=== PATIENT | male | born 1955 | race Caucasian/White ===

== ENCOUNTER 2016-07-01 10:13 | Emergency (ER) | payer MEDICARE ==
[~2016-07-01] VITALS: Ht 172.7 cm; Wt 83.0 kg
[~2016-07-01 10:13] MED LIST: BACT800T5 PO; CEPH500 PO; DOXY100T PO; MOBI15TA PO; PROP40TA3 PO; XANA0.5T PO
[2016-07-01 10:21] VITALS: BP 161/75; PULSE 86; RESP 18; TEMP 99.8; O2SAT 95
[2016-07-01] MEDS ORDERED: BUSP5TAB PO (10:27)
[2016-07-01] MEDS ORDERED: PROP40TA3 PO (10:29)
[2016-07-01] MEDS ORDERED: FERR325T PO (10:29)
[2016-07-01] MEDS ORDERED: ALPR0.5T3 PO (10:29)
[2016-07-01] MEDS ORDERED: VITA1000 PO (10:29)
[2016-07-01] MEDS ORDERED: SODIUM CHLORIDE 0.9% FLUSH 5 ML FLUSH IVF PRN (10:45)
[2016-07-01] MEDS ORDERED: SODIUM CHLOR 0.9% 1000 ML INJ 1,000 ML IV ONE (10:45)
--- NOTE | 2016-07-01 10:48 | PD ---
HPI Chief Complaint: General Weakness Time Seen by Provider: 10:30 Travel History International Travel<30 days: No Contact w/Intl Traveler<30days: No Traveled to known affect area: No History of Present Illness HPI Patient is a 60-year-old male who presents to emergency room with complaints of generalized weakness for the past 3 weeks. Patient reports that he has history of "really bad arthritis", reports that he uses a walker to walk at baseline. Patient reports that this morning, he woke up to use the restroom, reports that he was too weak to get up from the toilet. Patient reports that he had to call EMS for help. Patient reports that for the past 3 weeks, he has been feeling weak to his knees, reports that he has been feeling intermittent shortness of breath. Patient reports that shortness of breath is worse in the morning, reports that improves throughout the day. Patient denies any chest pain at this time, denies cough or congestion. Patient reports that he is" on and off smoker." Patient denies any abdominal pain, nausea or vomiting, reports that he thinks that he may have led in his stools as his noticed increased dark and tarry stools for the past week. Patient does admit to taking iron supplements. Patient with no nausea or vomiting or diarrhea, reports that he has been eating and drinking like his normal self, reports that "I just don't feel good. ". Patient with no recent travels or trips. Patient with no sick contacts. PFSH Past Medical History Anxiety: Yes Heart Rhythm Problems: Yes (PALPITATIONS) Cardiovascular Problems: Yes (MITRAL VALVE PROLAPSE ) Diabetes: No Patient Takes Glucophage: No Immunizations Current: Yes Influenza Vaccination: No ?: Not Social History Alcohol Use: Yes (most days) Tobacco Use: Yes Substance Use: Yes (ALCOHOL DAILY) Allergies-Medications (Allergen,Severity, Reaction): Coded Allergies: No Known Allergies (Verified , 05/26/15) Reported Meds & Prescriptions Reported Meds & Active Scripts Active Reported Vitamin D-1000 (Cholecalciferol) 1,000 Unit Tab 1,000 Units PO DAILY Alprazolam 0.5 Mg Tab 0.5 Mg PO Q6H PRN Ferrous Sulfate 325 Mg Tab 325 Mg PO DAILY Propranolol (Propranolol HCl) 40 Mg Tab 40 Mg PO Q8HR Buspirone (Buspirone HCl) 5 Mg Tab 5 Mg PO BID Review of Systems General / Constitutional: No: Fever Eyes: No: Visual changes HENT: No: Headaches Cardiovascular: No: Chest Pain or Discomfort Respiratory: No: Shortness of Breath Gastrointestinal: Positive: Other (melena), No: Nausea, Vomiting, Diarrhea, Abdominal Pain Genitourinary: No: Dysuria Musculoskeletal: No: Pain Skin: No Rash Neurologic: Positive: Weakness Psychiatric: No: Depression Endocrine: No: Polydipsia Hematologic/Lymphatic: No: Easy Bruising Physical Exam Narrative GENERAL: No acute distress, nontoxic SKIN: Warm and dry. HEAD: Atraumatic. Normocephalic. EYES: No injection or drainage. ENT: No nasal bleeding or discharge. Mucous membranes pink and moist. NECK: Trachea midline. No JVD. CARDIOVASCULAR: Regular rate and rhythm. No murmur appreciated. RESPIRATORY: No accessory muscle use. Clear to auscultation. Breath sounds equal bilaterally. GASTROINTESTINAL: Abdomen soft, non-tender, nondistended. Patient with heme- negative rectal exam, control positive, stool is light brown. Patient does have a nonthrombosed external hemorrhoid with no bleeding. Exam performed with NIKOLAI Awad at bedside MUSCULOSKELETAL: No obvious deformities. No clubbing. No cyanosis. No edema. NEUROLOGICAL: Awake and alert. No obvious cranial nerve deficits. Motor grossly within normal limits. Normal speech. PSYCHIATRIC: Appropriate mood and affect; insight and judgment normal. Data Data Last Documented VS Vital Signs Date Time Temp Pulse Resp B/P Pulse Ox O2 Delivery O2 Flow Rate FiO2 07/01/16 13:27 93 18 147/68 95 Room Air 07/01/16 10:21 99.8 Orders Complete Blood Count With Diff (07/01/16 10:37) Comprehensive Metabolic Panel (07/01/16 10:37) B-Type Natriuretic Peptide (07/01/16 10:37) D-Dimer (07/01/16 10:37) Act Partial Throm Time (Ptt) (07/01/16 10:37) Prothrombin Time / Inr (Pt) (07/01/16 10:37) Magnesium (Mg) (07/01/16 10:37) Ckmb (Isoenzyme) Profile (07/01/16 10:37) Troponin I (07/01/16 10:37) Arterial Blood Gas (Abg) (07/01/16 10:37) Urinalysis - C+S If Indicated (07/01/16 10:37) Influenzae A/B Antigen (07/01/16 10:37) Iv Access Insert/Monitor (07/01/16 10:37) Ecg Monitoring (07/01/16 10:37) Oximetry (07/01/16 10:37) Chest, Single Ap (07/01/16 10:37) Sodium Chloride 0.9% Flush (Ns Flush) (07/01/16 10:45) Sodium Chlor 0.9% 1000 Ml Inj (Ns 1000 M (07/01/16 10:45) Ct Pulmonary Angiogram (07/01/16 12:31) Electrocardiogram (07/01/16 10:22) Iohexol 350 Inj (Omnipaque 350 Inj) (07/01/16 13:33) Labs Laboratory Tests Test 07/01/16 07/01/16 11:10 11:50 White Blood Count 7.6 TH/MM3 Red Blood Count 4.21 MIL/MM3 Hemoglobin 12.9 GM/DL Hematocrit 36.8 % Mean Corpuscular Volume 87.5 FL Mean Corpuscular Hemoglobin 30.7 PG Mean Corpuscular Hemoglobin 35.1 % Concent Red Cell Distribution Width 15.2 % Platelet Count 133 TH/MM3 Mean Platelet Volume 7.2 FL Neutrophils (%) (Auto) 71.3 % Lymphocytes (%) (Auto) 11.7 % Monocytes (%) (Auto) 15.6 % Eosinophils (%) (Auto) 0.9 % Basophils (%) (Auto) 0.5 % Neutrophils # (Auto) 5.4 TH/MM3 Lymphocytes # (Auto) 0.9 TH/MM3 Monocytes # (Auto) 1.2 TH/MM3 Eosinophils # (Auto) 0.1 TH/MM3 Basophils # (Auto) 0.0 TH/MM3 CBC Comment DIFF FINAL Differential Comment Prothrombin Time 10.2 SEC Prothromb Time International 0.9 RATIO Ratio Activated Partial 27.8 SEC Thromboplast Time D-Dimer Quantitative (PE/DVT) 2.19 MG/L FEU Sodium Level 139 MEQ/L Potassium Level 3.3 MEQ/L Chloride Level 105 MEQ/L Carbon Dioxide Level 25.4 MEQ/L Anion Gap 9 MEQ/L Blood Urea Nitrogen 6 MG/DL Creatinine 0.51 MG/DL Estimat Glomerular Filtration 167 ML/MIN Rate Random Glucose 136 MG/DL Calcium Level 8.1 MG/DL Magnesium Level 1.7 MG/DL Total Bilirubin 0.8 MG/DL Aspartate Amino Transf 21 U/L (AST/SGOT) Alanine Aminotransferase 16 U/L (ALT/SGPT) Alkaline Phosphatase 52 U/L Total Creatine Kinase 60 U/L Troponin I LESS THAN 0.02 NG/ML B-Type Natriuretic Peptide 56 PG/ML Total Protein 6.8 GM/DL Albumin 3.0 GM/DL Urine Color YELLOW Urine Turbidity CLEAR Urine pH 6.0 Urine Specific [place] 1.022 Urine Protein 100 mg/dL Urine Glucose (UA) NEG mg/dL Urine Ketones 40 mg/dL Urine Occult Blood NEG Urine Nitrite NEG Urine Bilirubin NEG Urine Urobilinogen 2.0 MG/DL Urine Leukocyte Esterase NEG Urine RBC 1 /hpf Urine WBC 3 /hpf Urine Hyaline Casts 2 /lpf Urine Mucus MANY /lpf Microscopic Urinalysis Comment CULT NOT INDICATED MDM Medical Decision Making Medical Screen Exam Complete: Yes Emergency Medical Condition: Yes Interpretation(s) EKG at 1022: Normal sinus rhythm at 86 bpm, QT/QTC 374/417, incomplete right bundle branch block Vital Signs Date Time Temp Pulse Resp B/P Pulse Ox O2 Delivery O2 Flow Rate FiO2 07/01/16 10:24 87 24 95 Room Air 07/01/16 10:21 99.8 86 18 161/75 95 Differential Diagnosis GI bleed, electrolyte abnormality, ACS, arrhythmia, PE, CHF exacerbation, influenza, pneumothorax, anemia Narrative Course Patient is a 60-year-old male who presents to emergency room from home with complaints of generalized weakness and possible GI bleed. Patient reports that he has been feeling increasingly weak over the past 3 weeks , reports no fevers or chills at home, denies any sick contacts. Patient reports that he does use a walker to ambulate, that he was unable to get up after having a dark tarry bowel movement this morning. Patient had to call EMS to help him up from the toilet. Reports that he came to the emergency room for evaluation as he has been progressively feeling weak over the past 3 weeks. Patient with no specific complaint at this time, no chest pain or abdominal pain or nausea or vomiting. Patient reports that he has been feeling increasingly short of breath and had dark tarry stools. Rectal exam performed with RN at bedside, patient does not have heme positive stools, stool is light brown in color. I do not believe the patient has a GI bleed at this time, patient with no abdominal pain, plan to check labs. With patient's overall generalized weakness, labs ordered, EKG ordered, will perform x-ray of chest. Patient was placed on monitor and storage bin tender upon arrival to the emergency room. D-dimer ordered as well as ABG ordered as patient reports increased SOB over the past 3 weeks. CBC & BMP Diagram 07/01/16 11:[address] Angiography 07/01/16 1231 Signed Impressions: Service Date/Time: Friday, July 01, 2016 12:55 - CONCLUSION: No evidence of pulmonary embolus. Mild right basilar atelectasis. Hepatic steatosis. Henrik Arriola MD Chest X-Ray 07/01/16 1037 Signed Impressions: Service Date/Time: Friday, July 01, 2016 10:48 - CONCLUSION: 1. No acute cardiopulmonary findings. Willian Morris MD All labs and all studies reviewed with patient in detail. Patient with no acute findings at this time, all incidental findings were reviewed patient in detail. Patient reports that he is feeling better at this time. A copy of patient's CAT scan report was given to him. Discussed signs and symptoms of when to return to the emergency room. Diagnosis Primary Impression: Generalized weakness Additional Impressions: Anemia Hepatic steatosis Hypokalemia Patient Instructions: General Instructions Additional Instructions: Please follow-up with your primary care doctor as soon as possible Return to the emergency room as needed Return to the emergency room if symptoms worsen or progress Disposition: 01 DISCHARGE HOME Condition: Stable Suzanne Headley DO Jul 01, 2016 10:48
--- NOTE | 2016-07-01 11:11 | RADRPT ---
EXAM DATE/TIME: 07/01/2016 10:48 [facility] COMPARISON: ANKLE LEFT COMPLETE ([id number]), March 13, 2015, 10:40. INDICATIONS : Short of breath MEDICAL HISTORY : None. SURGICAL HISTORY : None. ENCOUNTER: Initial ACUITY: 1 day PAIN SCORE: 0/10 LOCATION: Bilateral chest FINDINGS: A single view of the chest demonstrates the lungs to be symmetrically aerated without evidence of mas s, infiltrate or effusion. The cardiomediastinal contours are unremarkable. Osseous structures demo nstrate mild degenerative changes but are otherwise intact. CONCLUSION: 1. No acute cardiopulmonary findings. Willian Morris MD on July 01, 2016 at 11:09 Board Certified Radiologist. This report was verified electronically.
[2016-07-01 11:13] VITALS: RESP 18; O2SAT 98
[2016-07-01 11:26] LABS: AUTOMATED NEUTROPHIL # 5.4 TH/MM3 (1.8-7.7); BASOPHIL % 0.5 % (0.0-2.0); EOSINOPHIL # 0.1 TH/MM3 (0-0.4); EOSINOPHIL % 0.9 % (0.0-4.0); HEMATOCRIT 36.8 % (39.0-51.0); HEMO FLAGS DIFF FINAL; LYMPH % 11.7 % (9.0-44.0); LYMPHOCYTE # 0.9 TH/MM3 (1.0-4.8); MEAN CELL VOLUME 87.5 FL (80.0-100.0); MEAN CORPUSCULAR HEMOGLOBIN 30.7 PG (27.0-34.0); MEAN CORPUSCULAR HGB CONC 35.1 % (32.0-36.0); MONO % 15.6 % (0.0-8.0); NEUT % 71.3 % (16.0-70.0); PLATELET COUNT 133 TH/MM3 (150-450); RED BLOOD COUNT 4.21 MIL/MM3 (4.50-5.90); RED CELL DISTRIBUTION WIDTH 15.2 % (11.6-17.2); WHITE BLOOD COUNT 7.6 TH/MM3 (4.0-11.0)
[2016-07-01 11:43] LABS: ALT (GPT) 16 U/L (12-78); ANION GAP 9 MEQ/L (5-15); APTT (PATIENT) 27.8 SEC (24.3-30.1); AST (GOT) 21 U/L (15-37); BICARBONATE 25.4 MEQ/L (21.0-32.0); BLOOD UREA NITROGEN 6 MG/DL (7-18); CHLORIDE 105 MEQ/L (98-107); GLOMERULAR FILTRATION RATE 167 ML/MIN (>89); INTERNATIONAL NORMALIZED RATIO 0.9 RATIO; MAGNESIUM 1.7 MG/DL (1.5-2.5); POTASSIUM 3.3 MEQ/L (3.5-5.1); PROTHROMBIN TIME - PATIENT 10.2 SEC (9.8-11.6); SODIUM (NA) 139 MEQ/L (136-145)
[2016-07-01 11:49] LABS: ALKALINE PHOSPHATASE 52 U/L (45-117); CREATINE KINASE 60 U/L (39-308); TOTAL BILIRUBIN ADULT 0.8 MG/DL (0.2-1.0)
[2016-07-01 12:22] LABS: BLOOD, URINE NEG (NEG); GLUCOSE,URINE NEG (NEG); HYALINE CAST, URINE 2 /lpf (RARE); KETONE, URINE 40 mg/dL (NEG); MUCUS URINE MANY /lpf (OCC); NITRITE,URINE NEG (NEG); URINE COLOR YELLOW (YELLW/STRAW)
[2016-07-01 12:23] LABS: COMMENT (UR) CULT NOT INDICATED; CULTURE IF INDICATED CULT NOT INDICATED
[2016-07-01 13:27] VITALS: BP 147/68; PULSE 93; RESP 18; O2SAT 95
[2016-07-01] MEDS ORDERED: IOHEXOL 350 MG/ML 10 ML VIAL (for RAD DIAG) IV ONE (13:33)
--- NOTE | 2016-07-01 14:03 | RADRPT ---
EXAM DATE/TIME: 07/01/2016 12:55 [facility] COMPARISON: No previous studies available for comparison. INDICATIONS : Short of breath. IV CONTRAST: 60 cc Omnipaque 350 (iohexol) IV RADIATION DOSE: 28.33 CTDIvol (mGy) MEDICAL HISTORY : Cardiovascular disease. SURGICAL HISTORY : None. ENCOUNTER: Initial ACUITY: 1 day PAIN SCALE: 5/10 LOCATION: chest TECHNIQUE: Volumetric scanning of the chest was performed using a pulmonary embolism protocol MIP images were re constructed. Using automated exposure control and adjustment of the mA and/or kV according to patien t size, radiation dose was kept as low as reasonably achievable to obtain optimal diagnostic quality images. FINDINGS: PULMONARY ARTERIES: No filling defects are seen in the pulmonary arteries through the segmental level. LUNGS: Mild right lower lobe atelectasis. PLEURAE: There is no pleural thickening or pleural effusion. MEDIASTINUM: Coronary artery calcification noted. Aortic diameter are within normal limits. No enlarged lymph node s. MUSCULOSKELETAL: Within normal limits for patient age. MISCELLANEOUS: Diffuse hepatic hypodensity indicating hepatic steatosis. CONCLUSION: No evidence of pulmonary embolus. Mild right basilar atelectasis. Hepatic steatosis. Henrik Arriola MD on July 01, 2016 at 13:57 Board Certified Radiologist. This report was verified electronically.
[2016-07-01] MEDS ORDERED: POTASSIUM CL 40 MEQ/30 ML LIQ UDC PO ONE (14:15)
[2016-07-01 14:29] VITALS: BP 153/78; TEMP 98.8
[2016-07-01 15:47] LABS: BLOOD GAS BASE EXCESS -0.4 mmol/L (-2-2); BLOOD GAS CARBOXYHEMOGLOBIN 2.5 % (0-4); BLOOD GAS HCO3 23 mmol/L (22-26); BLOOD GAS O2 HGB SATURATION 92 % (90-100); BLOOD GAS OXYGEN CONTENT 18.2 Vol % (12.0-20.0); BLOOD GAS PCO2 33 mmHg (38-42); BLOOD GAS PO2 70 mmHG (61-120); BLOOD GAS TOTAL HGB 14.2 G/DL (12.0-16.0); CRITICAL VALUE NO; TEMP CORR TO 98.6
[2016-07-01 15:48] LABS: DRAW SITE RT RADIAL; FIO2 21 %; NUMBER OF ARTERIAL PUNCTURES 1; STAT YES; ULNAR PULSE RR
--- NOTE | 2016-07-02 14:41 | EKG ---
Date Performed: 07/01/2016 Time Performed: 10:22:19 PTAGE: 60 years EKG: Sinus rhythm INCOMPLETE RIGHT BUNDLE BRANCH BLOCK BORDERLINE ECG PREVIOUS TRACING : 01/04/2011 18.01 DOCTOR: Kike Cordon Interpretating Date/Time 07/02/2016 14:35:04
== END 2016-07-01 14:45 | disposition home or self-care (01) ==
LOC: NEPA 10:13
DX: R53.1 Weakness (principal); D64.9 Anemia, unspecified; K76.0 Fatty (change of) liver, not elsewhere classified; E87.6 Hypokalemia; R06.02 Shortness of breath; R00.2 Palpitations; I34.1 Nonrheumatic mitral (valve) prolapse; Z72.0 Tobacco use
CPT/HCPCS: 36600; 71010; 71275; 80053; 81001; 82550; 82805; 83735; 83880; 84484; 85025; 85379; 85610; 85730; 93005; 99285; J7030; Q9967

== ENCOUNTER 2016-11-21 02:21 | Emergency (ER) | payer MEDICARE ==
[~2016-11-21] VITALS: Ht 172.7 cm; Wt 82.0 kg
[~2016-11-21 02:21] MED LIST changes: +ALPR0.5T3 PO; -BACT800T5 PO; +BUSP5TAB PO; -CEPH500 PO; -DOXY100T PO; +FERR325T PO; -MOBI15TA PO; +VITA1000 PO; -XANA0.5T PO
[2016-11-21] MEDS ORDERED: THIAMINE HCL 100 MG TAB PO ONE (02:45)
[2016-11-21] MEDS ORDERED: SODIUM CHLOR 0.9% 1000 ML INJ 1,000 ML IV ONE (02:45)
--- NOTE | 2016-11-21 02:51 | PD ---
HPI Chief Complaint: alcohol intoxication Time Seen by Provider: 02:40 Travel History International Travel<30 days: No Contact w/Intl Traveler<30days: No History of Present Illness HPI This is a 60-year-old male who presents to the emergency department with a funny feeling in the back of his head feeling like it shaking. He told his mom that this was happening and he told her he thought he was having a seizure or stroke so she called 911. The patient reports he drank a bottle of vodka this evening which is more than he normally drinks. He had no loss of consciousness or convulsions. Currently he has no symptoms except for a "funny feeling" at the back of his head. He had no injury. [facility] Past Medical History Anxiety: Yes Heart Rhythm Problems: Yes (PALPITATIONS) Cardiovascular Problems: Yes (MITRAL VALVE PROLAPSE ) Diabetes: No Immunizations Current: Yes Social History Alcohol Use: Yes (most days) Tobacco Use: Yes Substance Use: Yes (ALCOHOL DAILY) Allergies-Medications (Allergen,Severity, Reaction): Coded Allergies: No Known Allergies (Verified , 11/21/16) Reported Meds & Prescriptions Reported Meds & Active Scripts Active Reported Propranolol (Propranolol HCl) 40 Mg Tab 40 Mg PO Q8HR Review of Systems Except as stated in HPI: all other systems reviewed are Neg Physical Exam Narrative GENERAL: Clinically intoxicated SKIN: Focused skin assessment warm and dry. HEAD: Atraumatic. Normocephalic. EYES: Pupils equal and round. No injection or drainage. ENT: Moist mucous membranes NECK: Trachea midline. CARDIOVASCULAR: Regular rate and rhythm. No murmur appreciated. RESPIRATORY: Clear to auscultation. Breath sounds equal bilaterally. GASTROINTESTINAL: Abdomen soft, non-tender, nondistended. MUSCULOSKELETAL: No obvious deformities. NEUROLOGICAL: Awake and alert. No obvious cranial nerve deficits. Moving all extremities. PSYCHIATRIC: Intermittently tearful Data Data Last Documented VS Vital Signs Date Time Temp Pulse Resp B/P Pulse Ox O2 Delivery O2 Flow Rate FiO2 11/21/16 03:05 67 20 94 11/21/16 02:58 98.7 149/82 Orders Complete Blood Count With Diff (11/21/16 02:40) Comprehensive Metabolic Panel (11/21/16 02:40) Alcohol (Ethanol) (11/21/16 02:40) Sodium Chlor 0.9% 1000 Ml Inj (Ns 1000 M (11/21/16 02:45) Thiamine (Vit B1) (Vitamin B1) (11/21/16 02:45) Labs Laboratory Tests Test 11/21/16 02:50 White Blood Count 7.9 TH/MM3 Red Blood Count 5.94 MIL/MM3 Hemoglobin 16.7 GM/DL Hematocrit 50.3 % Mean Corpuscular Volume 84.8 FL Mean Corpuscular Hemoglobin 28.1 PG Mean Corpuscular Hemoglobin 33.2 % Concent Red Cell Distribution Width 17.5 % Platelet Count 215 TH/MM3 Mean Platelet Volume 6.5 FL Neutrophils (%) (Auto) 58.7 % Lymphocytes (%) (Auto) 35.3 % Monocytes (%) (Auto) 4.7 % Eosinophils (%) (Auto) 0.6 % Basophils (%) (Auto) 0.7 % Neutrophils # (Auto) 4.6 TH/MM3 Lymphocytes # (Auto) 2.8 TH/MM3 Monocytes # (Auto) 0.4 TH/MM3 Eosinophils # (Auto) 0.0 TH/MM3 Basophils # (Auto) 0.1 TH/MM3 CBC Comment DIFF FINAL Differential Comment Sodium Level 141 MEQ/L Potassium Level 3.9 MEQ/L Chloride Level 106 MEQ/L Carbon Dioxide Level 25.4 MEQ/L Anion Gap 10 MEQ/L Blood Urea Nitrogen 10 MG/DL Creatinine 0.73 MG/DL Estimat Glomerular Filtration 110 ML/MIN Rate Random Glucose 119 MG/DL Calcium Level 8.5 MG/DL Total Bilirubin 0.5 MG/DL Aspartate Amino Transf 28 U/L (AST/SGOT) Alanine Aminotransferase 18 U/L (ALT/SGPT) Alkaline Phosphatase 78 U/L Total Protein 8.1 GM/DL Albumin 3.9 GM/DL Ethyl Alcohol Level 280 MG/DL [facility] Medical Decision Making Medical Screen Exam Complete: Yes Emergency Medical Condition: Yes Interpretation(s) afebrile, no tachycardia, hypertension, 94% on room air No leukocytosis Electrolytes are reassuring Alcohol is 280 Differential Diagnosis Alcohol intoxication, stroke, seizure, electrolyte abnormality Narrative Course This is a 60-year-old male who presents to the emergency department reporting some abnormal sensations in the back of his head. His mother became concerned and called 911. Patient reportedly drank a bottle of vodka this evening which is not normal for him. He appears clinically intoxicated. He has a normal neurologic exam. I don't think the patient is having an acute neurologic event may think his symptoms are related to alcohol intoxication. His mother feels reassured after blood work and feels comfortable taking him home. I think this is reasonable. Patient will be discharged. Diagnosis Primary Impression: Alcohol intoxication Qualified Code: F10.920 - Alcohol intoxication, uncomplicated Patient Instructions: General Instructions Additional Instructions: Follow up with Dannie Jenkins in regards to psychiatric or substance related issues at: [address] [place] [address] Med/Other Pt SpecificInfo: No Change to Meds Disposition: 01 DISCHARGE HOME Condition: Stable Estrella Martinez MD Nov 21, 2016 02:51
[2016-11-21 02:58] VITALS: BP 149/82; PULSE 67; RESP 20; TEMP 98.7; O2SAT 94
[2016-11-21 02:59] LABS: AUTOMATED NEUTROPHIL # 4.6 TH/MM3 (1.8-7.7); BASOPHIL # 0.1 TH/MM3 (0-0.2); BASOPHIL % 0.7 % (0.0-2.0); EOSINOPHIL % 0.6 % (0.0-4.0); HEMATOCRIT 50.3 % (39.0-51.0); LYMPH % 35.3 % (9.0-44.0); LYMPHOCYTE # 2.8 TH/MM3 (1.0-4.8); MEAN CELL VOLUME 84.8 FL (80.0-100.0); MEAN CORPUSCULAR HEMOGLOBIN 28.1 PG (27.0-34.0); MEAN CORPUSCULAR HGB CONC 33.2 % (32.0-36.0); MONO % 4.7 % (0.0-8.0); NEUT % 58.7 % (16.0-70.0); PLATELET COUNT 215 TH/MM3 (150-450); RED BLOOD COUNT 5.94 MIL/MM3 (4.50-5.90); RED CELL DISTRIBUTION WIDTH 17.5 % (11.6-17.2); WHITE BLOOD COUNT 7.9 TH/MM3 (4.0-11.0)
[2016-11-21 03:07] LABS: CHLORIDE 106 MEQ/L (98-107); SODIUM (NA) 141 MEQ/L (136-145)
[2016-11-21 03:11] LABS: ANION GAP 10 MEQ/L (5-15); BICARBONATE 25.4 MEQ/L (21.0-32.0); BLOOD UREA NITROGEN 10 MG/DL (7-18)
[2016-11-21 03:14] LABS: ALT (GPT) 18 U/L (12-78); AST (GOT) 28 U/L (15-37); GLOMERULAR FILTRATION RATE 110 ML/MIN (>89)
[2016-11-21 03:16] LABS: POTASSIUM 3.9 MEQ/L (3.5-5.1); TOTAL BILIRUBIN ADULT 0.5 MG/DL (0.2-1.0)
[2016-11-21 03:17] LABS: ALKALINE PHOSPHATASE 78 U/L (45-117); HEMO FLAGS DIFF FINAL
[2016-11-21 03:30] VITALS: BP 144/72; PULSE 72; RESP 20; O2SAT 98
[2016-11-21] MEDS ORDERED: PROP40TA3 PO (03:49)
[2016-11-21 04:32] VITALS: BP 137/93
== END 2016-11-21 04:36 | disposition home or self-care (01) ==
LOC: PHED 02:21
DX: F10.120 Alcohol abuse with intoxication, uncomplicated (principal); Y90.8 Blood alcohol level of 240 mg/100 ml or more; Z79.899 Other long term (current) drug therapy
CPT/HCPCS: 80053; 80307; 85025; 99284; J7030

== ENCOUNTER 2017-02-06 03:02 | Observation (INO) | payer MEDICARE ==
[2017-02-06] VITALS (15 sets, daily range): BP systolic 97–137; BP diastolic 50–80; PULSE 74–102; RESP 16–33; TEMP 97.4–99.3; O2SAT 94–98
[~2017-02-06] VITALS: Ht 175.3 cm; Wt 82.6 kg
[~2017-02-06 03:02] MED LIST changes: -ALPR0.5T3 PO; -BUSP5TAB PO; -FERR325T PO; -VITA1000 PO
[2017-02-06] MEDS ORDERED: SODIUM CHLOR 0.9% 1000 ML INJ 1,000 ML IV ONE ×2 (03:11→05:30)
[2017-02-06] MEDS ORDERED: SODIUM CHLORIDE 0.9% FLUSH 10 ML FLUSH IVF PRN ×3 (03:15→06:00)
[2017-02-06 03:33] LABS: AUTOMATED NEUTROPHIL # 6.4 TH/MM3 (1.8-7.7); BASOPHIL # 0.1 TH/MM3 (0-0.2); BASOPHIL % 0.7 % (0.0-2.0); EOSINOPHIL # 0.2 TH/MM3 (0-0.4); EOSINOPHIL % 2.4 % (0.0-4.0); HEMATOCRIT 47.4 % (39.0-51.0); HEMO FLAGS DIFF FINAL; LYMPHOCYTE # 1.8 TH/MM3 (1.0-4.8); MEAN CORPUSCULAR HEMOGLOBIN 30.9 PG (27.0-34.0); MEAN CORPUSCULAR HGB CONC 34.3 % (32.0-36.0); NEUT % 71.9 % (16.0-70.0); PLATELET COUNT 272 TH/MM3 (150-450); RED BLOOD COUNT 5.27 MIL/MM3 (4.50-5.90); RED CELL DISTRIBUTION WIDTH 14.4 % (11.6-17.2)
[2017-02-06] MEDS ORDERED: XANA2TAB2 PO (03:35)
[2017-02-06 03:39] LABS: CHLORIDE 105 MEQ/L (98-107); POTASSIUM 3.7 MEQ/L (3.5-5.1); SODIUM (NA) 141 MEQ/L (136-145)
[2017-02-06 03:41] LABS: INTERNATIONAL NORMALIZED RATIO 0.9 RATIO; PROTHROMBIN TIME - PATIENT 10.2 SEC (9.8-11.6)
[2017-02-06 03:42] LABS: ANION GAP 12 MEQ/L (5-15); BICARBONATE 24.3 MEQ/L (21.0-32.0); BLOOD UREA NITROGEN 6 MG/DL (7-18); MAGNESIUM 2.2 MG/DL (1.5-2.5)
[2017-02-06 03:45] LABS: ALT (GPT) 35 U/L (12-78); AST (GOT) 30 U/L (15-37); GLOMERULAR FILTRATION RATE 143 ML/MIN (>89)
[2017-02-06 03:47] LABS: TOTAL BILIRUBIN ADULT 0.7 MG/DL (0.2-1.0)
[2017-02-06 03:48] LABS: ALKALINE PHOSPHATASE 55 U/L (45-117)
[2017-02-06 04:04] LABS: ALCOHOL 170 MG/DL (0-5)
--- NOTE | 2017-02-06 04:04 | RADRPT ---
EXAM DATE/TIME: 02/06/2017 03:47 [facility] COMPARISON: CHEST SINGLE AP, July 01, 2016, 10:48. INDICATIONS : Short of breath after syncopal episode. MEDICAL HISTORY : Cardiovascular disease. SURGICAL HISTORY : None. ENCOUNTER: Initial ACUITY: 1 day PAIN SCORE: 0/10 LOCATION: Bilateral chest FINDINGS: A single view of the chest demonstrates subsegmental basilar opacity most characteristic of atelectas is. No significant effusion. No pneumothorax. CONCLUSION: 1. Basilar density most characteristic of atelectasis. No significant effusion. No pneumothorax. Jace Cardenas MD on February 06, 2017 at 4:01 Board Certified Radiologist. This report was verified electronically.
--- NOTE | 2017-02-06 04:06 | RADRPT ---
EXAM DATE/TIME: 02/06/2017 03:50 [facility] COMPARISON: CT BRAIN W/O CONTRAST, January 06, 2015, 4:19. INDICATIONS : Altered mental status. RADIATION DOSE: 65.85 CTDIvol (mGy) MEDICAL HISTORY : Cardiovascular disease. SURGICAL HISTORY : None. ENCOUNTER: Initial ACUITY: 1 day PAIN SCALE: Non-responsive LOCATION: cranial TECHNIQUE: Multiple contiguous axial images were obtained of the head. Using automated exposure control and adj ustment of the mA and/or kV according to patient size, radiation dose was kept as low as reasonably a chievable to obtain optimal diagnostic quality images. DICOM format image data is available electro nically for review and comparison. FINDINGS: CEREBRUM: The ventricles are normal for age. No evidence of midline shift, mass lesion, hemorrhage or acute in farction. No extra-axial fluid collections are seen. POSTERIOR FOSSA: The cerebellum and brainstem are intact. The 4th ventricle is midline. The cerebellopontine angle i s unremarkable. EXTRACRANIAL: The visualized portion of the orbits is intact. SKULL: The calvaria is intact. No evidence of skull fracture. CONCLUSION: Normal examination for a patient of this age. No significant change has occurred. Jace Cardenas MD on February 06, 2017 at 4:03 Board Certified Radiologist. This report was verified electronically.
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
[2017-02-06 05:09] LABS: ACETAMINOPHEN LESS THAN 2.0 MCG/ML (10.0-30.0)
[2017-02-06 05:11] LABS: BLOOD, URINE NEG (NEG); GLUCOSE,URINE NEG (NEG); KETONE, URINE NEG (NEG); NITRITE,URINE NEG (NEG)
[2017-02-06] MEDS ORDERED: THIAMINE INJ 100 MG in SODIUM CHLORIDE 0.9% INJ 100 ML IV ONE (05:30)
[2017-02-06 05:32] LABS: MUCUS URINE OCC /lpf (OCC); SQUAMOUS EPITHELIAL CELL URINE 0-5 /hpf (0-5); URINE COLOR YELLOW (YELLW/STRAW); WBC, URINE 0-2 /hpf (0-5)
[2017-02-06 05:33] LABS: COMMENT (UR) CULT NOT INDICATED; CULTURE IF INDICATED CULT NOT INDICATED
[2017-02-06] MEDS ORDERED: SODIUM CHLORIDE 0.9% FLUSH 10 ML FLUSH IV FLUSH PRN (05:45)
[2017-02-06] MEDS ORDERED: ALPRAZolam 0.5 MG TAB PO PRN (05:45)
[2017-02-06] MEDS ORDERED: NALOXONE HCL 0.4 MG/ML AMP IV PUSH PRN (05:45)
[2017-02-06] MEDS: SODIUM CHLORIDE 0.9% FLUSH 10 ML FLUSH IV FLUSH SCH ×2 (08:44→21:43)
[2017-02-06] MEDS ORDERED: SODIUM CHLORIDE 0.9% FLUSH 10 ML FLUSH IV FLUSH SCH (09:00)
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
--- NOTE | 2017-02-06 14:46 | EKG ---
Date Performed: 02/06/2017 Time Performed: 03:22:34 PTAGE: 61 years EKG: Sinus rhythm MARKED LEFT AXIS DEVIATION ABNORMAL ECG PREVIOUS TRACING : 07/01/2016 10.22 Compared to prior tracing no significant change DOCTOR: Rose Marie Sethi Interpretating Date/Time 02/06/2017 14:46:06
[2017-02-06] MEDS: PROPRANOLOL HCL 40 MG TAB PO SCH ×2 (15:33→21:42)
[2017-02-06] MEDS ORDERED: ENOXAPARIN SODIUM 40 MG/0.4 ML SYRINGE SQ SCH (18:00)
[2017-02-07] VITALS: BP 119/63; PULSE 73; PULSE 78; RESP 24; TEMP 98; O2SAT 96
[2017-02-07 04:00] VITALS: BP 123/58; PULSE 82; RESP 17; TEMP 99
[2017-02-07 05:00] VITALS: BP 114/48; PULSE 82; RESP 16; O2SAT 96
[2017-02-07] MEDS: PROPRANOLOL HCL 40 MG TAB PO SCH ×2 (06:03→14:16)
[2017-02-07 08:00] VITALS: BP 124/58; PULSE 80; RESP 16; TEMP 98.7; O2SAT 93
--- NOTE | 2017-02-07 08:49 | HHI.PR ---
Subjective Remarks In bed, feels much better today. Mood is better. No fever or chills. Breathing well, no sob. VsdS. Stable medically for DC Objective Vitals Vital Signs Date Time Temp Pulse Resp B/P (MAP) Pulse Ox O2 Delivery O2 Flow Rate FiO2 02/07/17 05:00 82 16 114/48 (70) 96 02/07/17 04:00 82 02/07/17 04:00 99.0 82 17 123/58 (79) 02/07/17 00:00 98.0 78 24 119/63 (81) 96 02/07/17 00:00 73 02/06/17 21:39 82 18 111/59 (76) 02/06/17 20:00 99.3 86 22 125/59 (81) 96 02/06/17 20:00 87 02/06/17 19:37 96 21 02/06/17 16:00 97.7 98 33 136/74 (94) 96 02/06/17 16:00 98 02/06/17 12:00 99.1 102 30 137/76 (96) 98 02/06/17 10:00 89 02/06/17 09:23 02/06/17 09:22 99.0 84 24 136/80 (98) 97 I/O 02/06/17 02/06/17 02/06/17 02/07/17 02/07/17 02/07/17 07:00 15:00 23:00 07:00 15:00 23:00 Intake Total 2100 ml 320 ml 560 ml 200 ml Output Total 700 ml 700 ml Balance 2100 ml -380 ml 560 ml -500 ml Intake Oral 320 ml 560 ml 200 ml IV Total 2100 ml Output Urine Total 700 ml 700 ml # Voids 1 3 2 # Bowel Movements 1 1 0 Result Diagram: 02/06/1731402/06/17314 Imaging Last Impressions Head CT 02/06/17310 Signed Impressions: Service Date/Time: Monday, February 06, 2017 03:50 - CONCLUSION: Normal examination for a patient of this age. No significant change has occurred. Jace Cardenas MD Chest X-Ray 02/06/17310 Signed Impressions: Service Date/Time: Monday, February 06, 2017 03:47 - CONCLUSION: 1. Basilar density most characteristic of atelectasis. No significant effusion. No pneumothorax. Jace Cardenas MD Objective Remarks GENERAL: This is a well-nourished, well-developed patient, in no apparent distress. CARDIOVASCULAR: Tachycardic. Regular rate and rhythm without murmurs, gallops, or rubs. RESPIRATORY: Clear to auscultation. Breath sounds equal bilaterally. No wheezes , rales, or rhonchi. GASTROINTESTINAL: Abdomen soft, non-tender, nondistended. No hepato-splenomegaly , or palpable masses. No guarding. 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 Extremities without clubbing, cyanosis, or edema. No joint tenderness, effusion, or edema noted. No calf tenderness. Negative Homans sign bilaterally. NEUROLOGICAL: Awake and alert. Cranial nerves II through XII intact. Motor and sensory grossly within normal limits. Five out of 5 muscle strength in all muscle groups. Normal speech. PSYCHIATRIC: Depressed mood, anxious. A/P Assessment and Plan 61 yo male with Generalized weakness Benzodiazepine abuse (xanax) Alcohol abuse Suicidal ideation. Brewer acted H/o mitral valve prolapse resume propranolol Admitted to ICU for close obs for 24 hrs . 

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
[2017-02-07 12:00] VITALS: PULSE 84
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
[2017-02-07 12:31] VITALS: BP 120/66; PULSE 84; RESP 18; TEMP 99; O2SAT 97
== END 2017-02-07 15:21 ==
LOC: PHED 03:02 → PHEDA 05:43 → PHICU 09:25
PROVIDERS: ADMIT Hospitalist; ATTEND Hospitalist
DX: T42.4X1A Poisoning by benzodiazepines, accidental (unintentional), initial encounter (principal); F10.10 Alcohol abuse, uncomplicated; R53.1 Weakness; F41.9 Anxiety disorder, unspecified; F13.10 Sedative, hypnotic or anxiolytic abuse, uncomplicated; I34.1 Nonrheumatic mitral (valve) prolapse; R00.2 Palpitations; M48.00 Spinal stenosis, site unspecified; M41.9 Scoliosis, unspecified; R94.31 Abnormal electrocardiogram [ECG] [EKG]
CPT/HCPCS: 70450; 71010; 80053; 80307; 81001; 83735; 84484; 85025; 85610; 93005; 96361; 96365; 96372; 97162; 99285; G0378; G8987; G8988; J1650; J3411; J7030

== ENCOUNTER 2017-02-07 16:26 | Inpatient (IN) | payer MEDICARE ==
[~2017-02-07 16:26] MED LIST changes: +XANA2TAB2 PO
[2017-02-07 17:03] VITALS: BP 138/60; PULSE 94; RESP 18; TEMP 99.8; O2SAT 98
[2017-02-07] MEDS ORDERED: traZODone HCL 100 MG TAB PO SCH (21:30)
[2017-02-07] MEDS ORDERED: MAGNESIUM HYDROXIDE SUSP 30 ML CUP PO PRN (22:00)
[2017-02-07] MEDS ORDERED: ALUMINUM/MAGNESIUM/SIMETH 30 ML CUP PO PRN (22:00)
[2017-02-07] MEDS ORDERED: ACETAMINOPHEN 325 MG TAB PO PRN (22:00)
[2017-02-07] MEDS: PROPRANOLOL HCL 40 MG TAB PO SCH (22:11)
[2017-02-08] MEDS: PROPRANOLOL HCL 40 MG TAB PO SCH ×3 (06:14→22:00)
[2017-02-08 06:34] VITALS: BP 101/55; PULSE 81; RESP 17; TEMP 98.2; O2SAT 95
[2017-02-08] MEDS: NICOTINE 21 MG/24 HR PATCH T-DERMAL SCH (09:00)
[2017-02-08 17:04] VITALS: BP 135/65; PULSE 75; RESP 18; TEMP 98.6; O2SAT 99
[2017-02-08] MEDS: ESCITALOPRAM OXALATE 10 MG TAB PO SCH (17:54)
--- NOTE | 2017-02-08 18:44 | HHI.HP ---
Provisional Diagnosis Admission Date Feb 07, 2017 at 16:26 [place] I. Adjustment disorder with depressed mood Certification of Person's Competence To Provide Express and Informed Consent I have personally examined Cortes Baker , a person being served at [facility] on, Feb 08, 2017 18:44. Express and informed consent means consent voluntarily given in writing, by a competent person, after sufficient explanation and disclosure of the subject matter involved to enable the person to make a knowing and willful decision without any element of force, fraud, deceit, duress, or other form of constraint or coercion. This person is 18 years of age or older, is not now known to be incompetent to consent to treatment with a guardian advocate, and does not have a health care surrogate or proxy currently making medical treatment decisions. I have found this person to be one of the following: [x] Competent to provide express and informed consent, as defined above, for voluntary admission to this facility and is competent to provide express and informed consent for treatment. He/she has the consistent capacity to make well reasoned, willful, and knowing decisions concerning his or her medical or mental health treatment. The person fully and consistently understands the purpose of the admission for examination/placement and is fully capable of personally exercising all rights assured under [place] [] Incompetent to provide express and informed consent to voluntary admission, and this is incompetent to provide express and informed consent to treatment. The person must be transferred to involuntary status and a petition for a guardian advocate filed with the Circuit Court. [] Refusing to provide express and informed consent to voluntary admission but is competent to provide express and informed consent for treatment. The person must be discharged or transferred to involuntary status. Form shall be completed within 24 hours of a person's arrival at the receiving facility and filed in the clinical record of each person: 1. Admitted on a voluntary basis 2. Permitted to provide express and informed consent to his/her own treatment 3. Allowed to transfer from involuntary to voluntary status 4. Prior to permitting a person to consent to his or her own treatment after having been previously found incompetent to consent to treatment. 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 Patient was seen on the inpatient psychiatry unit, calm and cooperative with interview. Patient states that he is not suicidal and lives for his mother. He reports that he lives with his mother for years now and is her caregiver. He reports that prior to admission he was drinking at home and took four (0.5mg tablets) tablets to get a buzz and fell which he his mother called EMS. He denies any loss of consciousness but due to his spinal stenosis had difficulty getting up. He repots his mood being good, enjoys life with his mother. He reports his sleep as being alright, good appetite, energy and concentration, at times feels a little depressed because of my condition, denies feeling hopeless but at times feels helpless because I cant walk. Currently reports feeing sad because Im here denies SI, HI, AVH or delusions. Family psychiatric history: denies Past psychiatric history: previous psychiatric diagnosis of depression and anxiety, no previous psychiatric admissions, no previous suicide attempts or self injurious behavior. Denies history of abuse. Substance use history: reports ETOH 2-3 times per week(3-4 (16 oz) beers at a time) for the past four years; denies any illegal drug use, previous rehab 10 years ago as an outpatient. 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 Review of Systems Except as stated in HPI: all other systems reviewed are Neg Past Psych History Psychological trauma history denies Violence risk - others (6 mos) low Violence risk - self (6 mos) low Substance Abuse History Drugs/Alcohol past 12 months reports ETOH 2-3 times per week(3-4 (16 oz) beers at a time) for the past four years; denies any illegal drug use, previous rehab 10 years ago as an outpatient. Past Family Social History Coded Allergies: No Known Allergies (Verified , 02/06/17) Reported Medications Propranolol (Propranolol) 40 Mg Tab, 40 MG PO Q8HR, #90 TAB 0 Refills 11/21/16 Discontinued Reported Medications Alprazolam (Xanax) 2 Mg Tab, 2 MG PO Q8H Y for ANXIETY, TAB 0 Refills 02/06/17 Current Medications Medications (Trade) Dose Ordered Sig/Yee Route Start Time Stop Time Status Last Admin (Inderal) 40 mg Q8H PO 02/07/17 22:00 02/08/17 14:28 (Tylenol) 650 mg Q4H PRN PO 02/07/17 22:00 (Milk Of Magnesia Liq) 30 ml DAILY PRN PO 02/07/17 22:00 (Mag-Al Plus Susp Liq) 30 ml Q6H PRN PO 02/07/17 22:00 (Habitrol 21 Mg Patch.24 Hr) 1 patch DAILY T-DERMAL 02/08/17 09:00 Miscellaneous Information 1 HS T-DERMAL 02/08/17 21:00 (Lexapro) 10 mg DAILY PO 02/08/17 14:00 02/08/17 17:54 Family History denies Social History single, lives with mother, 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 Patient's Strengths (min. 2) verbal and communicative Physical Exam Patient found to be in no acute distress, noted to be in wheelchair, no noted gross motor abnormalities, no tremors of EPS, no noted psychomotor agitation of retardation. Vital Signs Vital Signs Date Time Temp Pulse Resp B/P (MAP) Pulse Ox O2 Delivery O2 Flow Rate FiO2 02/08/17 17:04 98.6 75 18 135/65 (88) 99 Mental Status Examination Appearance appears stated age, in hospital [facility], fair hygiene and grooming, calm and cooperative with interview; fair eye contact Speech: Unremarkable Orientation: x3 Memory: Unremarkable Thought Process: Logical, Organized Thought Content: Unremarkable Language fluent and spontaneous Fund of Knowledge average Hallucination Type: None Attention and Concentration: Good Suicidal Ideation: No Previous Suicide Attempts: No Homicidal Ideation: No Previous Homicide Attempts: No Insight: Fair Judgment: WNL Affect: Other (tearful at times) Mood: Sad Assessment & Plan Problem List: (1) Adjustment disorder with depressed mood ICD Codes: F43.21 - Adjustment disorder with depressed mood Assessment & Plan Patient is a 61 y/o man who carries a diagnosis of depression and anxiety who was brought in under [place] after alcohol use and benzodiazepine overdose. Patient denies it being a suicide attempt and only wanted to get buzzed. Will start escitalopram 10mg PO daily. Monitor for medication response and ADRs. Continue to monitor mood and behavior. Discharge planning in progress. Delon Almanzar MD Feb 08, 2017 18:44
[2017-02-08] MEDS: REMOVE OLD NICOTINE PATCH T-DERMAL SCH (21:00)
[2017-02-09] MEDS: PROPRANOLOL HCL 40 MG TAB PO SCH ×3 (05:53→21:33)
[2017-02-09 06:06] VITALS: BP 135/66; PULSE 77; RESP 18; TEMP 98.2; O2SAT 96
[2017-02-09] MEDS: ESCITALOPRAM OXALATE 10 MG TAB PO SCH (09:00)
[2017-02-09] MEDS: NICOTINE 21 MG/24 HR PATCH T-DERMAL SCH (09:00)
--- NOTE | 2017-02-09 15:24 | HHI.PYPN ---
Subjective Remarks Patient was seen and case discussed with nursing. Patient maintains that he did not have a intentional overdose. Psychoeducation was done about benzodiazepines and alcohol. Protective factors include his mother. No auditory visual hallucinations, alert and oriented 4, no tremors, vital signs are within normal limits. No nausea or vomiting. Denies depressed mood. Denies suicidal or homicidal ideation intent or plan Objective Alert: Yes [place]: Person, Place, Date, Situation Mood: Calm Affect: Restricted Memory Intact: Immediate (grossly intact) Hallucinations: Other (denies) Delusions: No Delusion Type: Other (none elicited) Suicidal: Ideation (denies) Homicidal: Ideation (denies) Insight/Judgment Fair Vitals/IOs Vital Signs Date Time Temp Pulse Resp B/P (MAP) Pulse Ox O2 Delivery O2 Flow Rate FiO2 02/09/17 06:06 98.2 77 18 135/66 (89) 96 Assessment & Plan Problem List: (1) Adjustment disorder with depressed mood ICD Codes: F43.21 - Adjustment disorder with depressed mood Assessment & Plan Continue current treatment plan Justification for Cont. Inpt. Patient would decompensate in a less restrictive setting Luís Villalobos DO Feb 09, 2017 15:24
[2017-02-09] MEDS: REMOVE OLD NICOTINE PATCH T-DERMAL SCH (21:00)
[2017-02-09] MEDS: traZODone HCL 50 MG TAB PO PRN (23:13)
[2017-02-10 04:36] VITALS: BP 116/56; PULSE 69; RESP 17; TEMP 98; O2SAT 97
[2017-02-10] MEDS: PROPRANOLOL HCL 40 MG TAB PO SCH ×4 (06:00→20:47)
[2017-02-10] MEDS: NICOTINE 21 MG/24 HR PATCH T-DERMAL SCH (08:41)
[2017-02-10] MEDS: ESCITALOPRAM OXALATE 10 MG TAB PO SCH (08:42)
[2017-02-10 08:49] VITALS: BP 149/68; PULSE 76
--- NOTE | 2017-02-10 11:13 | HHI.PYPN ---
Subjective Remarks Patient was seen and case discussed with nursing. Patient is bright and cheerful during the interview. Affect is anxious. Patient is asking about discharge tomorrow given he has a pain management appointment at 3 PM. Behaving well on the unit, seen social with others, went outside. Continues to state that his overdose was not intentional. Denies suicidal or homicidal ideation intent or plan Objective Alert: Yes [place]: Person, Place, Date, Situation Mood: Calm Affect: Appropriate Memory Intact: Immediate (grossly intact) Hallucinations: Other (denies) Delusions: No Delusion Type: Other (none elicited) Suicidal: Ideation (denies) Homicidal: Ideation (denies) Insight/Judgment Fair Vitals/IOs Vital Signs Date Time Temp Pulse Resp B/P (MAP) Pulse Ox O2 Delivery O2 Flow Rate FiO2 02/10/17 08:49 76 149/68 (95) 02/10/17 04:36 98.0 17 97 Assessment & Plan Problem List: (1) Adjustment disorder with depressed mood ICD Codes: F43.21 - Adjustment disorder with depressed mood Assessment & Plan Continue current treatment plan Justification for Cont. Inpt. Patient will decompensate in a less restrictive setting Luís Villalobos DO Feb 10, 2017 11:13
[2017-02-10 14:05] VITALS: BP 143/67; PULSE 75
[2017-02-10 17:57] VITALS: BP 140/64; PULSE 76; RESP 18; TEMP 97.7; O2SAT 95
[2017-02-10] MEDS: traZODone HCL 50 MG TAB PO PRN (20:47)
[2017-02-10] MEDS: REMOVE OLD NICOTINE PATCH T-DERMAL SCH (20:47)
[2017-02-11 06:39] VITALS: BP 145/62; PULSE 86; RESP 16; TEMP 99.7; O2SAT 94
[2017-02-11] MEDS: PROPRANOLOL HCL 40 MG TAB PO SCH ×2 (06:40→13:42)
[2017-02-11] MEDS: NICOTINE 21 MG/24 HR PATCH T-DERMAL SCH (08:25)
[2017-02-11] MEDS: ESCITALOPRAM OXALATE 10 MG TAB PO SCH (08:25)
--- NOTE | 2017-02-11 13:46 | HHI.DS ---
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 Patient was seen on the inpatient psychiatry unit, calm and cooperative with interview. Patient states that he is not suicidal and lives for his mother. He reports that he lives with his mother for years now and is her caregiver. He reports that prior to admission he was drinking at home and took four (0.5mg tablets) tablets to get a buzz and fell which he his mother called EMS. He denies any loss of consciousness but due to his spinal stenosis had difficulty getting up. He repots his mood being good, enjoys life with his mother. He reports his sleep as being alright, good appetite, energy and concentration, at times feels a little depressed because of my condition, denies feeling hopeless but at times feels helpless because I cant walk. Currently reports feeing sad because Im here denies SI, HI, AVH or delusions. Family psychiatric history: denies Past psychiatric history: previous psychiatric diagnosis of depression and anxiety, no previous psychiatric admissions, no previous suicide attempts or self injurious behavior. Denies history of abuse. Substance use history: reports ETOH 2-3 times per week(3-4 (16 oz) beers at a time) for the past four years; denies any illegal drug use, previous rehab 10 years ago as an outpatient. 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 Tobacco Use In Past 30 Days: No Tobacco Past 30 Days Alcohol Use: 2-4 Times Per Month Hospital Course Patient is seen today with nurse Iza and counselor Vilma. Patient calm cooperative sitting in wheelchair obvious severe arthritic changes noted of both hands. Stating that there was never any suicidal intent with this episode. He was taking the Xanax because he had some anxiety. The acknowledges mixing it with alcohol. I did spend much time counseling and advising him the dangers involved mixing alcohol and benzodiazepines. He did reluctantly acknowledge being an alcoholic. Has had multiple DUIs. And at least one course of rehabilitation outpatient related to his DUIs. He denies other drug use. He denies any prior inpatient psychiatric hospitalization. States he lives with his 90-year-old plus mother. In any event at this time patient does not meet criteria for further inpatient psychiatric hospitalization. Patient will be discharged to himself with no Rx by me and may continue with his PCP and we will also referred to [facility] for mental health follow-up Results Blood Pressure 145 / 62 Vital Signs Date Time Temp Pulse Resp B/P (MAP) Pulse Ox O2 Delivery O2 Flow Rate FiO2 02/11/17 06:39 99.7 86 16 145/62 (89) 94 Blood alcohol level CLXX urine toxicology positive for benzodiazepines Summary of Procedures None done Pending results at discharge: No Medications # of Antipsychotic meds at D/C: 0 Approp Antipsych med options 1 - Minimum of three failed multiple trials of monotherapy. 2 - Documented plan to taper to monotherapy due to previous use of multiple meds OR cross-taper in progress at D/C. 3 - Documentation of augmentation of Clozapine. 4 - Justification other than those listed in allowable values 1-3, document here : Discharge Discharge Date: Feb 11, 2017 Discharge Diagnosis: (1) Alcohol intoxication Diagnosis: Secondary ICD Code: F10.929 - Alcohol use, unspecified with intoxication, unspecified Status: Acute (2) Adjustment disorder with depressed mood Diagnosis: Principal ICD Code: F43.21 - Adjustment disorder with depressed mood Mental Status Exam at Disch Alert oriented short stockily built white male sitting in wheelchair significant obvious arthritic changes both hands. He is otherwise normal active. Mood is euthymic with good range intensity of his affect. Speech rate and rhythm within normal limits though no formal thought disorders. No auditory or visual hallucinations. No delusions. Insight and judgment is poor to fair. Cognition grossly intact Pt Condition on Discharge: Stable Discharge Disposition: Discharge Home Discharge Instructions Diet Instructions: As Tolerated, No Restrictions Activities you can perform: Regular-No Restrictions Scheduled Appointment: [facility] Discharge Time > 30 minutes Discharge/Advance Care Plan Health Problems: (1) Adjustment disorder with depressed mood Goals to promote your health * To prevent worsening of your condition and complications * To maintain your health at the optimal level Directions to meet your goals Take your medications as prescribed Follow your dietary instruction Follow activity as directed Keep your appointments as scheduled Take your immunizations and boosters as scheduled If your symptoms worsen call your PCP, if no PCP go to Urgent Care Center or Emergency Room For 03/12 questions related to your inpatient stay or results of tests pending at discharge, please contact Dr. Kin Palm at Smoking is Dangerous to Your Health. Avoid second hand smoking Kin Palm MD Feb 11, 2017 13:46
== END 2017-02-11 14:35 | disposition home or self-care (01) | DRG 881 ==
LOC: H260 16:26
PROVIDERS: ADMIT Psychiatry & Neurology Psychiatry; ATTEND Psychiatry & Neurology Psychiatry
DX: F43.21 Adjustment disorder with depressed mood (principal); M41.9 Scoliosis, unspecified; F13.10 Sedative, hypnotic or anxiolytic abuse, uncomplicated; F41.9 Anxiety disorder, unspecified; M48.00 Spinal stenosis, site unspecified; T42.4X1A Poisoning by benzodiazepines, accidental (unintentional), initial encounter; F10.129 Alcohol abuse with intoxication, unspecified; Y90.6 Blood alcohol level of 120-199 mg/100 ml; R53.1 Weakness; I34.1 Nonrheumatic mitral (valve) prolapse; R00.2 Palpitations; R94.31 Abnormal electrocardiogram [ECG] [EKG]
CPT/HCPCS: 70450; 71010; 80053; 80307; 81001; 83735; 84484; 85025; 85610; 93005; 96361; 96365; 96372; G0378; G8987-GP; G8988-GP; J1650; J3411; J7030

== ENCOUNTER 2018-01-09 22:12 | Observation (INO) ==
--- NOTE | 2018-01-09 23:57 | ED ---
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 Patient has progression of generalized weakness for the last 6 months but more significantly so in the last 2 months where he has had persistent weakness to his left thigh. Patient has not been medically evaluated since February of last year. Patient has difficulty with ambulation and has called rescue 3 times to his home today for assistance. Rescue brought him to the emergency department for further evaluation. 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 Patient is no longer able to take care of himself and he has no one at home can help him to ambulate. Related Data Home Medications Medication Instructions Recorded Confirmed alprazolam [Xanax] 0.5 mg PO BID 01/09/18 01/09/18 propranolol 50 mg PO TID 01/09/18 01/09/18 trazodone 50 mg PO HS PRN 01/09/18 01/09/18 Previous Rx's Medication Instructions Recorded lisinopril 10 mg PO DAILY #0 tab 01/12/18 prednisone 10 mg PO DAILY #7 tab 01/12/18 Allergies Allergy/AdvReac Type Severity Reaction Status Date / Time No Known Allergies Allergy Unverified 01/09/18 22:50 Review of Systems ROS: all other systems reviewed are negative [facility] Medical History Medical History Anxiety (Acute) Charcot Brianda Tooth muscular atrophy (Acute) Hypertension (Acute) Intermittent depression (Acute) Surgical History Surgical History History of major orthopedic surgery (Acute) Family History Family History Father Emphysema lung Heart attack Social History Social History Substance History: No History of Abuse Second Hand Smoke Exposure: No Smoking Status: Never smoker How Often Do You Have a Drink Containing Alcohol: 4 or more times a week Recent Travel in [facility] within the Last 8 Weeks: No Recent Out of Country Travel within the Last 8 Weeks: No Immunization History Tetanus Immunization: <5 Years Hx Influenza Vaccine This Season: No Exam Narrative Exam Narrative: GENERAL: Alert and oriented 3. In no acute distress SKIN: Focused skin assessment warm/dry. Scaly erythema to facial region particularly HEAD: Atraumatic. Normocephalic. EYES: Pupils equal and round. No scleral icterus. No injection or drainage. ENT: No nasal bleeding or discharge. Mucous membranes pink and moist. NECK: Trachea midline. No JVD. CARDIOVASCULAR: Regular rate and rhythm. No murmur appreciated. RESPIRATORY: No accessory muscle use. Clear to auscultation. Breath sounds equal bilaterally. GASTROINTESTINAL: Abdomen soft, non-tender, nondistended. Hepatic and splenic margins not palpable. MUSCULOSKELETAL: No obvious deformities. No clubbing. No cyanosis. No edema. Significant disability to lower extremity with multiple surgeries. NEUROLOGICAL: Awake and alert. No obvious cranial nerve deficits. Normal speech. Localized weakness to lateral thigh and quadriceps on the left. PSYCHIATRIC: Appropriate mood and affect; insight and judgment normal. Course Reevaluation(s) Reevaluation #1: Results of CT show spondylosis and degenerative changes and also herniated disc with potential pressure on L4 on the left. Given the left leg weakness has been progressive over the last 6 months and exacerbated in the last 2-3 months; the patient has probable radiculopathy causing the muscle weakness on the left leg that has made it impossible to move effectively. Time: 02:16 Initial Documented Vital Signs Temperature 98.6 F 01/09/18 22:25 Pulse Rate 102 H 01/09/18 22:25 Respiratory Rate 15 01/09/18 22:25 Blood Pressure 142/73 H 01/09/18 22:25 Pulse Oximetry 96 01/09/18 22:25 Last Documented Vital Signs Temperature 98.7 F 01/12/18 12:20 Pulse Rate 48 L 01/12/18 12:20 Respiratory Rate 16 01/12/18 12:20 Blood Pressure 116/67 01/12/18 12:20 Pulse Oximetry 96 01/12/18 12:20 Critical Care Time Critical Care Time: No Medical Decision Making MDM Narrative Medical decision making narrative: Patient presents with history of progressive weakness of left lower extremity and back pain that has made it impossible to ambulate that has been progressive over the last 2-[address] with degenerative changes and encroachment of the L4 area associated with the bulging disc is probably responsible for the neuropathy and the muscle weakness in the lateral aspect of the thigh. Medical Screen Exam Complete: Yes Emergency Medical Condition: Yes Lab Data Result diagrams: 01/11/18 06:10 01/11/18 06:10 Lab Results 01/10/18 01/10/18 01/10/18 Range/Units 01:49 01:49 03:03 CBC w Diff Auto diff final WBC 6.9 (4.0-11.0) th/mm3 RBC 5.06 (4.50-5.90) mil/mm3 Hgb 16.5 (13.0-17.0) gm/dL Hct 48.3 (39.0-51.0) % MCV 95.6 (80.0-100.0) fL MCH 32.7 (27.0-34.0) pg MCHC 34.2 (32.0-36.0) % RDW 12.4 (11.6-17.2) % Plt Count 182 (150-450) th/mm3 MPV 6.7 L (7.0-11.0) fL Neut % (Auto) 63.2 (16.0-70.0) % Lymph % (Auto) 15.9 (9.0-44.0) % Leake % (Auto) 17.9 H (0.0-8.0) % Eos % (Auto) 2.1 (0.0-4.0) % Baso % (Auto) 0.9 (0.0-2.0) % Neut # (Auto) 4.4 (1.8-7.7) th/mm3 Lymph # (Auto) 1.1 (1.0-4.8) th/mm3 Leake # (Auto) 1.2 H (0.0-0.9) th/mm3 Eos # (Auto) 0.1 (0.0-0.4) th/mm3 Baso # (Auto) 0.1 (0.0-0.2) th/mm3 WBC Differential . Differential Comment . Sodium 136 (136-145) meq/L Potassium 4.3 (3.5-5.1) meq/L Chloride 99 (98-107) meq/L Carbon Dioxide 25.9 (21.0-32.0) meq/L Anion Gap 11 (5-15) meq/L BUN 5 L (7-18) mg/dL Creatinine 0.61 (0.60-1.30) mg/dL Estimated GFR Greater than 89 (>89) mL/min Random Glucose 80 (74-106) mg/dL Calcium 8.8 (8.5-10.1) mg/dL Total Bilirubin 1.4 H (0.2-1.0) mg/dL Direct Bilirubin (0.0-0.2) mg/dL Indirect Bilirubin (0.0-0.8) mg/dL AST 54 H (15-37) U/L ALT 36 (12-78) U/L Alkaline Phosphatase 69 (45-117) U/L Total Creatine Kinase 90 (39-308) U/L Troponin I Less than 0.02 L (0.02-0.05) ng/mL Total Protein 7.5 (6.4-8.2) g/dL Albumin 3.6 (3.4-5.0) g/dL Urine Color (Yellw/Straw) Urine Clarity (Clear) Urine pH (5.0-8.5) Ur Specific [place] (1.002-1.035) Urine Protein (Neg-Trace) mg/dL Urine Glucose (UA) (Negative) mg/dL Urine Ketones (Negative) mg/dL Urine Occult Blood (Negative) Urine Nitrate (Negative) Urine Bilirubin (Negative) Urine Urobilinogen (Less than 2) mg/dL Ur Leukocyte Esterase (Negative) Urine RBC (0-3) /hpf Urine WBC (0-5) /hpf Urine Mucus (Occasional) /lpf Micro UA Comment Ur Microscopic Review Urine Culture Comments 01/10/18 01/11/18 01/11/18 Range/Units 06:00 06:10 06:10 CBC w Diff WBC 5.4 (4.0-11.0) th/mm3 RBC 4.62 (4.50-5.90) mil/mm3 Hgb 15.1 (13.0-17.0) gm/dL Hct 44.3 (39.0-51.0) % MCV 95.9 (80.0-100.0) fL MCH 32.8 (27.0-34.0) pg MCHC 34.2 (32.0-36.0) % RDW 13.2 (11.6-17.2) % Plt Count 155 (150-450) th/mm3 MPV 7.1 (7.0-11.0) fL Neut % (Auto) 73.3 H (16.0-70.0) % Lymph % (Auto) 12.8 (9.0-44.0) % [place]ake % (Auto) 13.5 H (0.0-8.0) % Eos % (Auto) 0.0 (0.0-4.0) % Baso % (Auto) 0.4 (0.0-2.0) % Neut # (Auto) 4.0 (1.8-7.7) th/mm3 Lymph # (Auto) 0.7 L (1.0-4.8) th/mm3 Leake # (Auto) 0.7 (0.0-0.9) th/mm3 Eos # (Auto) 0.0 (0.0-0.4) th/mm3 Baso # (Auto) 0.0 (0.0-0.2) th/mm3 WBC Differential . Differential Comment Auto diff final Sodium 138 (136-145) meq/L Potassium 3.8 (3.5-5.1) meq/L Chloride 101 (98-107) meq/L Carbon Dioxide 24.3 (21.0-32.0) meq/L Anion Gap 13 (5-15) meq/L BUN 11 (7-18) mg/dL Creatinine 0.53 L (0.60-1.30) mg/dL Estimated GFR Greater than 89 (>89) mL/min Random Glucose 123 H (74-106) mg/dL Calcium 8.3 L (8.5-10.1) mg/dL Total Bilirubin (0.2-1.0) mg/dL Direct Bilirubin (0.0-0.2) mg/dL Indirect Bilirubin (0.0-0.8) mg/dL AST (15-37) U/L ALT (12-78) U/L Alkaline Phosphatase (45-117) U/L Total Creatine Kinase (39-308) U/L Troponin I (0.02-0.05) ng/mL Total Protein (6.4-8.2) g/dL Albumin (3.4-5.0) g/dL Urine Color Dark-yellow H (Yellw/Straw) Urine Clarity Hazy H (Clear) Urine pH 5.0 (5.0-8.5) Ur Specific [place] 1.015 (1.002-1.035) Urine Protein Negative (Neg-Trace) mg/dL Urine Glucose (UA) Negative (Negative) mg/dL Urine Ketones 20 (Negative) mg/dL Urine Occult Blood Negative (Negative) Urine Nitrate Negative (Negative) Urine Bilirubin Negative (Negative) Urine Urobilinogen 4 or greater (Less than 2) mg/dL Ur Leukocyte Esterase Negative (Negative) Urine RBC Less than 1 (0-3) /hpf Urine WBC Less than 1 (0-5) /hpf Urine Mucus Moderate H (Occasional) /lpf Micro UA Comment Culture not ind Ur Microscopic Review Not Reportable Urine Culture Comments Culture not ind 01/11/18 Range/Units 06:10 CBC w Diff WBC (4.0-11.0) th/mm3 RBC (4.50-5.90) mil/mm3 Hgb (13.0-17.0) gm/dL Hct (39.0-51.0) % MCV (80.0-100.0) fL MCH (27.0-34.0) pg MCHC (32.0-36.0) % RDW (11.6-17.2) % Plt Count (150-450) th/mm3 MPV (7.0-11.0) fL Neut % (Auto) (16.0-70.0) % Lymph % (Auto) (9.0-44.0) % Leake % (Auto) (0.0-8.0) % Eos % (Auto) (0.0-4.0) % Baso % (Auto) (0.0-2.0) % Neut # (Auto) (1.8-7.7) th/mm3 Lymph # (Auto) (1.0-4.8) th/mm3 Leake # (Auto) (0.0-0.9) th/mm3 Eos # (Auto) (0.0-0.4) th/mm3 Baso # (Auto) (0.0-0.2) th/mm3 WBC Differential Differential Comment Sodium (136-145) meq/L Potassium (3.5-5.1) meq/L Chloride (98-107) meq/L Carbon Dioxide (21.0-32.0) meq/L Anion Gap (5-15) meq/L BUN (7-18) mg/dL Creatinine (0.60-1.30) mg/dL Estimated GFR (>89) mL/min Random Glucose (74-106) mg/dL Calcium (8.5-10.1) mg/dL Total Bilirubin 0.8 (0.2-1.0) mg/dL Direct Bilirubin 0.2 (0.0-0.2) mg/dL Indirect Bilirubin 0.6 (0.0-0.8) mg/dL AST 27 (15-37) U/L ALT 24 (12-78) U/L Alkaline Phosphatase 63 (45-117) U/L Total Creatine Kinase (39-308) U/L Troponin I (0.02-0.05) ng/mL Total Protein 6.8 D (6.4-8.2) g/dL Albumin 3.3 L (3.4-5.0) g/dL Urine Color (Yellw/Straw) Urine Clarity (Clear) Urine pH (5.0-8.5) Ur Specific [place] (1.002-1.035) Urine Protein (Neg-Trace) mg/dL Urine Glucose (UA) (Negative) mg/dL Urine Ketones (Negative) mg/dL Urine Occult Blood (Negative) Urine Nitrate (Negative) Urine Bilirubin (Negative) Urine Urobilinogen (Less than 2) mg/dL Ur Leukocyte Esterase (Negative) Urine RBC (0-3) /hpf Urine WBC (0-5) /hpf Urine Mucus (Occasional) /lpf Micro UA Comment Ur Microscopic Review Urine Culture Comments Imaging Data Radiologist's impression: Head CT 01/10/18 00:09 CONCLUSION: 1. No acute intracranial abnormality. . Lumbar Spine CT 01/10/18 00:09 CONCLUSION: 1. No fracture or dislocation. 2. Scoliotic curvature. 3. Diffuse degenerative changes as detailed above. Special note is made of a left posterior lateral disc bulge that impinges the left L4 nerve root within the neural foramen with a right posterior lateral disc bulge at L5-S1 impinging the right L5 nerve root. Each level detailed in the above discussion. Lumbar Spine MRI 01/11/18 00:00 CONCLUSION: 1. 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 2. Neural foraminal compromise left L3-4, bilateral L4-5. Thoracic Spine MRI 01/11/18 00:00 CONCLUSION: Scoliosis with degenerative changes and slight effacement of the anterior CSF space T10-11 without any significant interval sac stenosis or cord compromise. Discharge Plan Discharge Disposition Patient Disposition: 30 Still Patient Discharge Condition Condition: Stable Discharge Order Discharge Orders: Discharge Order (Routine); Ordered 01/12/18 Ordered By: Linda Wren Physicians Team ED Provider: Henrik Kearns Attending Provider: Luis Worley Other Providers: Zeferino Hoffmann ; [facility],Agency Status ED Status: Left Department Discharge Information Discharge Date/Time: 01/10/18 04:59
--- NOTE | 2018-01-10 01:54 | CT ---
EXAM DATE: 01/10/2018 1:31 AM EDT AGE/SEX: 62 years / Male INDICATIONS: Weakness. Radiculopathy. CLINICAL DATA: This is the patient's initial encounter. Patient reports that signs and symptoms have been present for 1 day and indicates a pain score of 6/10. MEDICAL/SURGICAL HISTORY: . Anxiety. Hypertension. . Unspecified orthopedic surgery. RADIATION DOSE: 40.18 CTDI (mGy) COMPARISON: No prior exams available for comparison. TECHNIQUE: Contiguous axial images were acquired with a multirow detector CT scanner without contras t. Multiplanar reconstructions in the sagittal and coronal plane were also performed. Using automate d exposure control and adjustment of the mA and/or kV according to patient size, radiation dose was k ept as low as reasonably achievable to obtain optimal diagnostic quality images. DICOM format image data is available electronically for review and comparison. FINDINGS: Vertebrae: Normal vertebral body height. Diffuse anterior osteophyte production. Alignment: There is a scoliotic curvature with concavity towards the patient's left centered at L3.. T12-L1: The thecal sac has a normal diameter. No evidence of disc bulge or protrusion. The neural foramina are patent bilaterally. L1-L2: There is a mild broad-based disc bulge. Moderate bony hypertrophy of the facet joints. Centra l canal remains patent as do the neural foramen. L2-L3: There is a moderate broad-based disc bulge. Moderate ligamentum flavum hypertrophy of the fac et joints. Some lipomatous change involving the posterior portion of the central canal. This combinat ion generates some narrowing of the central canal. The neural foramina are patent bilaterally. L3-L4: There is a moderate broad-based disc osteophyte complex. This in combination with significant ligamentum flavum hypertrophy and bony hypertrophy of the facets generates central canal stenosis as well as narrowing of the lateral recesses bilaterally. Bilateral neural foraminal narrowing more pro nounced on the left with suspected impingement of the left L3 nerve root. No overt impingement involv ing the right side. L4-L5: Partial left-sided hemilaminectomy. A significant broad-based disc bulge with left posterior lateral component totally effaces the left neural foramen. It also generates significant narrowing of the right neural foramen. Pronounced bony hypertrophy of the facet joints. Some narrowing of the guillermo tral canal. L5-S1: A mild broad-based disc bulge with right posterior lateral component causes narrowing of the right neural foramen and suspected impingement of the right L5 nerve root. Left neural foramen shows narrowing without overt impingement. Moderate bony hypertrophy of the facet joints. Some lipomatous c hange involving the posterior portion of the central canal. This is mild. Central canal remains paten t. CONCLUSION: 1. No fracture or dislocation. 2. Scoliotic curvature. 3. Diffuse degenerative changes as detailed above. Special note is made of a left posterior lateral disc bulge that impinges the left L4 nerve root within the neural foramen with a right posterior late ral disc bulge at L5-S1 impinging the right L5 nerve root. Each level detailed in the above discussio n. Electronically signed by: Sawyer Jarvis MD 01/10/2018 1:53 AM EDT
--- NOTE | 2018-01-10 01:55 | CT ---
EXAM DATE: 01/10/2018 1:23 AM EDT AGE/SEX: 62 years / Male INDICATIONS: Weakness. Radiculopathy. CLINICAL DATA: This is the patient's initial encounter. Patient reports that signs and symptoms have been present for 1 day and indicates a pain score of 5/10. MEDICAL/SURGICAL HISTORY: Hypertension. Anxiety. . Unspecified orthopedic surgery. RADIATION DOSE: 62.98 CTDI (mGy) COMPARISON: [facility], CT BRAIN W/O CONTRAST, 02/06/2017. . TECHNIQUE: CT of the head without contrast. Using automated exposure control and adjustment of the mA and/or kV according to patient size, radiation dose was kept as low as reasonably achievable to ob tain optimal diagnostic quality images. DICOM format image data is available electronically for revi ew and comparison. FINDINGS: Cerebrum: The ventricles are normal for age. No evidence of midline shift, mass lesion, hemorrhage or acute infarction. No extraaxial fluid collections are seen. Posterior Fossa: The cerebellum and brainstem are intact. The 4th ventricle is midline. The cerebe llopontine angle is unremarkable. Extracranial: The visualized portion of the orbits is intact. Skull: The calvaria is intact. No evidence of skull fracture. CONCLUSION: 1. No acute intracranial abnormality. . Electronically signed by: Sawyer Jarvis MD 01/10/2018 1:54 AM EDT
[2018-01-10 02:07] LABS: Baso # (Auto) 0.1 th/mm3 (0.0-0.2); Baso % (Auto) 0.9 % (0.0-2.0); Eos # (Auto) 0.1 th/mm3 (0.0-0.4); Eos % (Auto) 2.1 % (0.0-4.0); Hematocrit 48.3 % (39.0-51.0); Hemoglobin 16.5 gm/dL (13.0-17.0); Lymph # (Auto) 1.1 th/mm3 (1.0-4.8); Lymph % (Auto) 15.9 % (9.0-44.0); Mean Corpuscular HGB Conc 34.2 % (32.0-36.0); Mean Corpuscular Hemoglobin 32.7 pg (27.0-34.0); Mean Corpuscular Volume 95.6 fL (80.0-100.0); Mean Platelet Volume 6.7 fL (7.0-11.0); Mono # (Auto) 1.2 th/mm3 (0.0-0.9); Mono % (Auto) 17.9 % (0.0-8.0); Neut # (Auto) 4.4 th/mm3 (1.8-7.7); Neut % (Auto) 63.2 % (16.0-70.0); Platelet Count 182 th/mm3 (150-450); Red Blood Count 5.06 mil/mm3 (4.50-5.90); Red Cell Distribution Width 12.4 % (11.6-17.2); White Blood Count 6.9 th/mm3 (4.0-11.0)
[2018-01-10 02:22] LABS: Chloride 99 meq/L (98-107); Potassium 4.3 meq/L (3.5-5.1); Sodium 136 meq/L (136-145)
[2018-01-10 02:26] LABS: Albumin 3.6 g/dL (3.4-5.0); Calcium 8.8 mg/dL (8.5-10.1)
[2018-01-10 02:27] LABS: Anion Gap 11 meq/L (5-15); Blood Urea Nitrogen 5 mg/dL (7-18); Carbon Dioxide 25.9 meq/L (21.0-32.0); Glucose,Random 80 mg/dL (74-106)
[2018-01-10 02:29] LABS: Aspartate Aminotransferase 54 U/L (15-37)
[2018-01-10] MEDS ORDERED: Lisinopril 10 MG Tablet PO PRN (02:29)
[2018-01-10 02:30] LABS: Alanine Aminotransferase 36 U/L (12-78); Glomerular Filtration Rate Greater Than 89 mL/min (>89)
[2018-01-10 02:31] LABS: Total Protein 7.5 g/dL (6.4-8.2)
[2018-01-10] MEDS ORDERED: Bisacodyl 10 MG Supp RECTAL PRN (02:31)
[2018-01-10 02:32] LABS: Alkaline Phosphatase 69 U/L (45-117)
[2018-01-10 07:29] LABS: Bilirubin,Urine Negative (Negative); Clarity,Urine Hazy (Clear); Glucose,Urine (UA) Negative (Negative); Leukocyte Esterase,Urine Negative (Negative); Mucus,Urine Moderate /lpf (Occasional); Nitrite,Urine Negative (Negative); Specific Gravity,Urine 1.015 (1.002-1.035); Urobilinogen,Urine 4 or Greater mg/dL (Less than 2)
[2018-01-10 07:32] LABS: Color,Urine Dark-Yellow (Yellw/Straw)
[2018-01-10] MEDS: ALPRAZolam 0.5 MG Tablet PO SCH ×2 (08:39→22:48)
--- NOTE | 2018-01-10 13:18 | P.HP ---
History of Present Illness Service: [facility] Primary Care Physician: Tomas Thurman Chief Complaint: S/P fall History of Present Illness: Patient is a 62-year-old male with past medical history of Charcot Brianda tooth, anxiety, depression, mitral valve prolapse, HTN who came into the hospital for progressive generalized weakness, status post multiple falls at home in the past few months. Patient states that he uses walker at home lives with his mother but he keeps on falling every time he goes to the bathroom, or just moving around the house. States he is unable to take care of himself, his mother is 90 years old unable to take care of him. Denies SOB/ dyspnea. Denies chest pain, palpitations, headaches, dizziness. Denies fevers, chills, n/v/d. Denies dysuria. Head CT shows no acute intracranial abnormality Lumbar spine CT showed no fracture or dislocation. Scoliotic curvature. Diffuse degenerative changes as detailed. Left posterior lateral disc bulge that impinges the left L4 nerve root within the neural foramen with a right posterior lateral disc bulge at L5-S1 impinging the right L5 nerve root. Each level detailed in the above discussion. Review of Systems All other systems reviewed negative except as stated in HPI PMFSH - History History Provided By: Patient - Medical History Medical History: Medical History (Last Reviewed 01/10/18 @ 11:30 by Giancarlo Khan) Anxiety Charcot Brianda Tooth muscular atrophy Hypertension Intermittent depression - Surgical History Surgical History: Surgical History (Last Reviewed 01/10/18 @ 11:30 by Giancarlo Khan) History of major orthopedic surgery - Family History Family History: Family History (Last Updated 01/10/18 @ 16:19 by YARIEL López) Father Emphysema lung Heart attack - Tobacco History Second Hand Smoke Exposure: No Tobacco Use In Past 30 Days: No Smoking Status: Never smoker - Alcohol History How Often Do You Have a Drink Containing Alcohol: 4 or more times a week - Substance Use History Substance History: No History of Abuse - Travel History Recent Travel in the [place] Within the Last 8 Weeks: No Recent Travel Out of the Country Within the Last 8 Weeks: No - Immunization History Tetanus Immunization: <5 Years Hx Influenza Vaccine This Season: No Medications and Allergies Active Medications: Active Medications Al Hydroxide/Mg Hydroxide (Milk Of Magnrobby Liq) 30 ml PO Q12H PRN PRN Reason: Mild Constipation Alprazolam (Xanax) 0.5 mg PO BID COUNTS INCLUDE 234 BEDS AT THE [facility] Last Admin: 01/10/18 08:39 Dose: 0.5 mg Bisacodyl (Dulcolax Supp) 10 mg RECTAL DAILY PRN PRN Reason: SEVERE CONSITIPATION Dexamethasone Sodium Phosphate (Decadron Inj) 4 mg IV.PUSH Q8HR COUNTS INCLUDE 234 BEDS AT THE [facility] Last Admin: 01/10/18 13:07 Dose: 4 mg Lactulose (Lactulose Liq) 30 ml PO DAILY PRN PRN Reason: SEVERE CONSITIPATION Lisinopril (Prinivil) 10 mg PO DAILY PRN PRN Reason: HYPERTENSION Propranolol HCl (Inderal) 50 mg PO TID COUNTS INCLUDE 234 BEDS AT THE [facility] Last Admin: 01/10/18 13:07 Dose: 50 mg Sennosides (Senokot) 17.2 mg PO Q12H PRN PRN Reason: Moderate Constipation Sodium Chloride (Ns Flush) 2 ml IV.FLUSH PRN PRN PRN Reason: FLUSH AFTER USING IV ACCESS Trazodone HCl (Desyrel) 50 mg PO HS PRN PRN Reason: SLEEP Allergies Allergy/AdvReac Type Severity Reaction Status Date / Time No Known Allergies Allergy Unverified 01/09/18 22:50 Home Medications Medication Instructions Recorded Confirmed Type alprazolam [Xanax] 0.5 mg PO BID 01/09/18 01/09/18 History lisinopril 10 mg PO DAILY PRN 01/09/18 01/09/18 History propranolol 50 mg PO TID 01/09/18 01/09/18 History trazodone 50 mg PO HS PRN 01/09/18 01/09/18 History Exam Vital signs: Vital Signs 01/09/18 22:25 01/10/18 00:10 01/10/18 01:54 Temperature 98.6 F Pulse Rate 102 H 104 H Respiratory Rate 15 15 Blood Pressure 142/73 H 137/64 Pulse Oximetry 96 96 96 01/10/18 04:51 01/10/18 08:00 01/10/18 08:41 Temperature 97.9 F Pulse Rate 109 H 80 Respiratory Rate 16 20 Blood Pressure 156/71 H 169/79 H Pulse Oximetry 96 95 98 01/10/18 12:28 Temperature 98.2 F Pulse Rate 68 Respiratory Rate 20 Blood Pressure 160/80 H Pulse Oximetry 20 L Intake & Output 01/09/18 01/10/18 01/10/18 18:59 06:59 18:59 Weight 80.739 kg Narrative: GENERAL: This is a well-nourished, well-developed patient, in no apparent distress. SKIN: Warm and dry. HEENT: Normocephalic. Pupils equal round. Nose without bleeding. Airway patent. Facial erythema, with plaquing appears to be rosacea related versus eczema NECK: Trachea midline. Supple. CARDIOVASCULAR: Regular rate and rhythm without murmurs, gallops, or rubs. RESPIRATORY: Diminished bases. No wheezes, rales, or rhonchi. GASTROINTESTINAL: Abdomen soft, non-tender, nondistended. Bowel Sounds normoactive x4. MUSCULOSKELETAL: Extremities without clubbing, cyanosis. Left ankle edema. Bilateral upper extremity contractures of bilateral hands with tremors noted bilaterally. NEUROLOGICAL: Awake and alert. Oriented toplace, person. BLE movement minimal, ROM Limited. Normal speech. Results - Labs CBC & Chem 7: 01/10/18 01:49 01/10/18 01:49 Labs: Laboratory Results - last 24 hr 01/10/18 01/10/18 01/10/18 01:49 01:49 03:03 CBC w Diff Auto diff final WBC 6.9 RBC 5.06 Hgb 16.5 Hct 48.3 MCV 95.6 MCH 32.7 MCHC 34.2 RDW 12.4 Plt Count 182 MPV 6.7 L Neut % (Auto) 63.2 Lymph % (Auto) 15.9 [place] % (Auto) 17.9 H Eos % (Auto) 2.1 Baso % (Auto) 0.9 Neut # (Auto) 4.4 Lymph # (Auto) 1.1 [place] # (Auto) 1.2 H Eos # (Auto) 0.1 Baso # (Auto) 0.1 WBC Differential . Differential Comment . Sodium 136 Potassium 4.3 Chloride 99 Carbon Dioxide 25.9 Anion Gap 11 BUN 5 L Creatinine 0.61 Estimated GFR Greater than 89 Random Glucose 80 Calcium 8.8 Total Bilirubin 1.4 H AST 54 H ALT 36 Alkaline Phosphatase 69 Total Creatine Kinase 90 Troponin I Less than 0.02 L Total Protein 7.5 Albumin 3.6 Urine Color Urine Clarity Urine pH Ur Specific [place] Urine Protein Urine Glucose (UA) Urine Ketones Urine Occult Blood Urine Nitrate Urine Bilirubin Urine Urobilinogen Ur Leukocyte Esterase Urine RBC Urine WBC Urine Mucus Micro UA Comment Ur Microscopic Review Urine Culture Comments 01/10/18 06:00 CBC w Diff WBC RBC Hgb Hct MCV MCH MCHC RDW Plt Count MPV Neut % (Auto) Lymph % (Auto) [place] % (Auto) Eos % (Auto) Baso % (Auto) Neut # (Auto) Lymph # (Auto) [place] # (Auto) Eos # (Auto) Baso # (Auto) WBC Differential Differential Comment Sodium Potassium Chloride Carbon Dioxide Anion Gap BUN Creatinine Estimated GFR Random Glucose Calcium Total Bilirubin AST ALT Alkaline Phosphatase Total Creatine Kinase Troponin I Total Protein Albumin Urine Color Dark-yellow H Urine Clarity Hazy H Urine pH 5.0 Ur Specific [place] 1.015 Urine Protein Negative Urine Glucose (UA) Negative Urine Ketones 20 Urine Occult Blood Negative Urine Nitrate Negative Urine Bilirubin Negative Urine Urobilinogen 4 or greater Ur Leukocyte Esterase Negative Urine RBC Less than 1 Urine WBC Less than 1 Urine Mucus Moderate H Micro UA Comment Culture not ind Ur Microscopic Review Not Reportable Urine Culture Comments Culture not ind - Imaging Impressions Head CT 01/10/18 00:09 CONCLUSION: 1. No acute intracranial abnormality. . Lumbar Spine CT 01/10/18 00:09 CONCLUSION: 1. No fracture or dislocation. 2. Scoliotic curvature. 3. Diffuse degenerative changes as detailed above. Special note is made of a left posterior lateral disc bulge that impinges the left L4 nerve root within the neural foramen with a right posterior lateral disc bulge at L5-S1 impinging the right L5 nerve root. Each level detailed in the above discussion. Caprini VTE Risk Assessment Caprini VTE Risk Assessment: Moderate/High Risk (score >= 2) Caprini Risk Assessment Model: Point Value = 1 Point Value = 2 Point Value = 3 Point Value = 5 Age 41-60 Minor surgery BMI > 25 kg/m2 Swollen legs Varicose veins or History of unexplained or recurrent spontaneous Oral contraceptives or hormone replacement Sepsis (< 1 month) Serious lung disease, including pneumonia (< 1 month) Abnormal pulmonary function Acute myocardial infarction Congestive heart failure (< 1 month) History of inflammatory bowel disease Medical patient at bed rest Age 61-74 Arthroscopic surgery Major open surgery (> 45 min) Laparoscopic surgery (> 45 min) Malignancy Confined to bed (> 72 hours) Immobilizing plaster cast Central venous access Age >= 75 History of VTE Family history of VTE Factor V Leiden Prothrombin [id number] Lupus anticoagulant Anticardiolipin antibodies Elevated serum homocysteine Heparin-induced thrombocytopenia Other congenital or acquired thrombophilia Stroke (< 1 month) Elective arthroplasty Hip, pelvis, or leg fracture Acute spinal cord injury (< 1 month) Prophylaxis Regimen: Total Risk Factor Score Risk Level Prophylaxis Regimen 0-1 Low Early ambulation 2 Moderate Order ONE of the following: *Sequential Compression Device (SCD) *Heparin 5000 units SQ BID 3-4 Higher Order ONE of the following medications: *Heparin 5000 units SQ TID *Enoxaparin/Lovenox 40 mg SQ daily (WT < 150 kg, CrCl > 30 mL/min) *Enoxaparin/Lovenox 30 mg SQ daily (WT < 150 kg, CrCl > 10-29 mL/min) *Enoxaparin/Lovenox 30 mg SQ BID (WT < 150 kg, CrCl > 30 mL/min) AND/OR *Sequential Compression Device (SCD) 5 or more Highest Order ONE of the following medications: *Heparin 5000 units SQ TID (Preferred with Epidurals) *Enoxaparin/Lovenox 40 mg SQ daily (WT < 150 kg, CrCl > 30 mL/min) *Enoxaparin/Lovenox 30 mg SQ daily (WT < 150 kg, CrCl > 10-29 mL/min) *Enoxaparin/Lovenox 30 mg SQ BID (WT < 150 kg, CrCl > 30 mL/min) AND *Sequential Compression Device (SCD) Assessment and Plan - Plan Patient is a 62-year-old male with past medical history of Charcot Brianda tooth, anxiety, depression, mitral valve prolapse, HTN who came into the hospital for progressive generalized weakness, status post multiple falls at home in the past few months Progressive radiculopathy based on CT Generalized weakness, multiple falls at home. -Head CT shows no acute intracranial abnormality -Lumbar spine CT showed no fracture or dislocation. Scoliotic curvature. Diffuse degenerative changes as detailed. Left posterior lateral disc bulge that impinges the left L4 nerve root within the neural foramen with a right posterior lateral disc bulge at L5-S1 impinging the right L5 nerve root. Each level detailed in the above discussion. -Neurosurgery consulted for further evaluation recommendation. -Physical therapy, occupational therapy eval and treat HTN -Continue home medications lisinopril, propanolol. Generalized tremor upper extremity, continue propranolol Anxiety, continue Xanax DVT prop Lovenox Code Status: Full code Discussed Condition With: Patient, nursing Discharge Planning: Plan to DC home when cleared by neurosurgery. Clinically improved.
--- NOTE | 2018-01-10 15:24 | P.CONNS ---
<KokoKarolina - Last Filed: 01/10/18 15:41> History of Present Illness Service: Neurosurgery Primary Care Provider: Tomas Thurman History of Present Illness: Mr. 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 He also reports of history of lumbar stenosis prior prior MRI and has undergone epidural injection with Pain Management Physician at [facility]. His low back pain however is getting worse and has had more difficulty mobilizing. His pain is localized in his lower back. He denies radiating pain. He has chronic paresthesias and weakness in his legs and feet. CT of the lumbar spine showed stenosis. Neurosurgery consultation was requested. [facility] - Medical History Medical History: Medical History (Last Reviewed 01/10/18 @ 11:30 by Giancarlo Khan) Anxiety Charcot Brianda Tooth muscular atrophy Hypertension Intermittent depression - Surgical History Surgical History: Surgical History (Last Reviewed 01/10/18 @ 11:30 by Giancarlo Khan) History of major orthopedic surgery Medications and Allergies Allergies Allergy/AdvReac Type Severity Reaction Status Date / Time No Known Allergies Allergy Unverified 01/09/18 22:50 Home Medications Medication Instructions Recorded Confirmed Type alprazolam [Xanax] 0.5 mg PO BID 01/09/18 01/09/18 History propranolol 50 mg PO TID 01/09/18 01/09/18 History trazodone 50 mg PO HS PRN 01/09/18 01/09/18 History Active Medications: Active Medications Al Hydroxide/Mg Hydroxide (Milk Of Magnesia Liq) 30 ml PO Q12H PRN PRN Reason: Mild Constipation Alprazolam (Xanax) 0.5 mg PO BID [facility] Last Admin: 01/10/18 08:39 Dose: 0.5 mg Bisacodyl (Dulcolax Supp) 10 mg RECTAL DAILY PRN PRN Reason: SEVERE CONSITIPATION Dexamethasone Sodium Phosphate (Decadron Inj) 4 mg IV.PUSH Q8HR [facility] Last Admin: 01/10/18 13:07 Dose: 4 mg Sodium Chloride (Ns Inj) 1,000 mls @ 50 mls/hr IV.CONT .Q20H [facility] Lactulose (Lactulose Liq) 30 ml PO DAILY PRN PRN Reason: SEVERE CONSITIPATION Lisinopril (Prinivil) 10 mg PO DAILY PRN PRN Reason: HYPERTENSION Propranolol HCl (Inderal) 50 mg PO TID [facility] Last Admin: 01/10/18 13:07 Dose: 50 mg Sennosides (Senokot) 17.2 mg PO Q12H PRN PRN Reason: Moderate Constipation Sodium Chloride (Ns Flush) 2 ml IV.FLUSH PRN PRN PRN Reason: FLUSH AFTER USING IV ACCESS Trazodone HCl (Desyrel) 50 mg PO HS PRN PRN Reason: SLEEP Exam Vital signs: Vital Signs 01/09/18 22:25 01/10/18 00:10 01/10/18 01:54 Temperature 98.6 F Pulse Rate 102 H 104 H Respiratory Rate 15 15 Blood Pressure 142/73 H 137/64 Pulse Oximetry 96 96 96 01/10/18 04:51 01/10/18 08:00 01/10/18 08:41 Temperature 97.9 F Pulse Rate 109 H 80 Respiratory Rate 16 20 Blood Pressure 156/71 H 169/79 H Pulse Oximetry 96 95 98 01/10/18 12:28 Temperature 98.2 F Pulse Rate 68 Respiratory Rate 20 Blood Pressure 160/80 H Pulse Oximetry 20 L Intake & Output 01/09/18 01/10/18 01/10/18 18:59 06:59 18:59 Weight 80.739 kg Narrative: GENERAL: Sitting in bed in no acute distress. SKIN: Warm and dry. diffuse facial erythema. HEAD: Normocephalic. EYES: No scleral icterus. No injection or drainage. NECK: Supple, trachea midline. No JVD or lymphadenopathy. CARDIOVASCULAR: Regular rate and rhythm RESPIRATORY: Breath sounds equal bilaterally. No accessory muscle use. GASTROINTESTINAL: Abdomen soft, non-tender, nondistended. MUSCULOSKELETAL: No cyanosis, or edema. Moving iliopsoas, quadriceps, hamstrings 4/5, 2-3 plantarflexion and dorsiflexion reportedly chronic. BACK: Loss of range of motion due to pain. Neuro: Awake, alert. Speech is slow. Follows commands. Pupils equal. Facial motor symmetric. Results - Laboratory Findings CBC and BMP: 01/10/18 01:49 01/10/18 01:49 Abnormal lab findings: Abnormal Labs 01/10/18 01/10/18 01/10/18 01:49 01:49 06:00 MPV 6.7 L [place] % (Auto) 17.9 H [place] # (Auto) 1.2 H BUN 5 L Total Bilirubin 1.4 H AST 54 H Troponin I Less than 0.02 L Urine Color Dark-yellow H Urine Clarity Hazy H Urine Mucus Moderate H <TahiraZeferino - Last Filed: 01/13/18 13:09> History of Present Illness Consult date: 01/10/18 Requesting Physician: Bruce Butcher Reason for Consult: back pain, Primary Care Provider: Tomas Thurman History of Present Illness: Mr. 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 He also reports history of chronic back pain due to lumbar stenosis. He has been managed wiuth epidural injection with Pain Management Physician at [facility]. His low back pain however is getting worse and has had more difficulty mobilizing. His pain is localized in his lower back. He denies radiating pain. He has chronic paresthesias and weakness in his legs and feet. CT of the lumbar spine showed stenosis. Neurosurgery consultation was requested. Review of Systems All other systems reviewed negative except as stated in HPI Constitutional: Denies anorexia, Denies body ache(s), Denies chills, Denies daytime sleepiness, Denies excessive sweating, Denies fatigue, Denies fever(s), Denies headache(s), Denies increased appetite, Denies lack of energy, Denies malaise, Denies night sweats, Denies weakness, Denies weight gain, Denies weight loss, Denies other Eyes: Denies blind spots, Denies blurry vision, Denies bulging eyes, Denies change in vision, Denies double vision, Denies discharge, Denies dry eyes, Denies floaters, Denies irritation, Denies itchy eyes, Denies loss of vision, Denies pain, Denies requires corrective lenses, Denies sensitivity to light, Denies other Ears, Nose, Mouth, and Throat: Denies abnormal hearing, Denies bleeding gums, Denies bad breath, Denies change in voice, Denies dental pain, Denies difficulty swallowing, Denies dizziness, Denies dry mouth, Denies ear discharge , Denies ear pain, Denies facial pain, Denies headache(s), Denies hearing loss, Denies hoarseness, Denies lip swelling, Denies nosebleed, Denies mouth lesions, Denies mouth pain, Denies nasal congestion, Denies nasal discharge, Denies nasal obstruction, Denies nasal trauma, Denies neck lump, Denies neck pain, Denies nose pain, Denies pain with swallowing, Denies poor balance, Denies post nasal drip, Denies ringing in the ears, Denies sinus pain, Denies sinus pressure , Denies sore throat, Denies throat swelling, Denies tongue swelling, Denies other PMFSH - History History Provided By: Patient - Medical History Medical History: Medical History (Last Reviewed 01/13/18 @ 12:56 by Zeferino Hoffmann MD) Anxiety Charcot Brianda Tooth muscular atrophy Hypertension Intermittent depression - Surgical History Surgical History: Surgical History (Last Reviewed 01/13/18 @ 12:56 by Zeferino Hoffmann MD) History of major orthopedic surgery - Family History Family History: Family History (Last Reviewed 01/13/18 @ 12:56 by Zeferino Hoffmann MD) Father Emphysema lung Heart attack - Tobacco History Second Hand Smoke Exposure: No Tobacco Use In Past 30 Days: No Smoking Status: Never smoker - Alcohol History How Often Do You Have a Drink Containing Alcohol: 4 or more times a week - Substance Use History Substance History: No History of Abuse - Travel History Recent Travel in the [place] Within the Last 8 Weeks: No Recent Travel Out of the Country Within the Last 8 Weeks: No - Immunization History Tetanus Immunization: <5 Years Hx Influenza Vaccine This Season: No Medications and Allergies Active Medications: Active Medications Al Hydroxide/Mg Hydroxide (Milk Of Magnesia Liq) 30 ml PO Q12H PRN PRN Reason: Mild Constipation Alprazolam (Xanax) 0.5 mg PO BID [facility] Last Admin: 01/10/18 08:39 Dose: 0.5 mg Bisacodyl (Dulcolax Supp) 10 mg RECTAL DAILY PRN PRN Reason: SEVERE CONSITIPATION Dexamethasone Sodium Phosphate (Decadron Inj) 4 mg IV.PUSH Q8HR [facility] Last Admin: 01/10/18 13:07 Dose: 4 mg Sodium Chloride (Ns Inj) 1,000 mls @ 50 mls/hr IV.CONT .Q20H [facility] Lactulose (Lactulose Liq) 30 ml PO DAILY PRN PRN Reason: SEVERE CONSITIPATION Lisinopril (Prinivil) 10 mg PO DAILY PRN PRN Reason: HYPERTENSION Propranolol HCl (Inderal) 50 mg PO TID [facility] Last Admin: 01/10/18 13:07 Dose: 50 mg Sennosides (Senokot) 17.2 mg PO Q12H PRN PRN Reason: Moderate Constipation Sodium Chloride (Ns Flush) 2 ml IV.FLUSH PRN PRN PRN Reason: FLUSH AFTER USING IV ACCESS Trazodone HCl (Desyrel) 50 mg PO HS PRN PRN Reason: SLEEP Exam Vital signs: Vital Signs 01/09/18 22:25 01/10/18 00:10 01/10/18 01:54 Temperature 98.6 F Pulse Rate 102 H 104 H Respiratory Rate 15 15 Blood Pressure 142/73 H 137/64 Pulse Oximetry 96 96 96 01/10/18 04:51 01/10/18 08:00 01/10/18 08:41 Temperature 97.9 F Pulse Rate 109 H 80 Respiratory Rate 16 20 Blood Pressure 156/71 H 169/79 H Pulse Oximetry 96 95 98 01/10/18 12:28 Temperature 98.2 F Pulse Rate 68 Respiratory Rate 20 Blood Pressure 160/80 H Pulse Oximetry 20 L Intake & Output 01/09/18 01/10/18 01/10/18 18:59 06:59 18:59 Weight 80.739 kg Narrative: GENERAL: Sitting in bed in no acute distress. SKIN: Warm and dry. diffuse facial erythema. HEAD: Normocephalic. EYES: No scleral icterus. No injection or drainage. NECK: Supple, trachea midline. No JVD or lymphadenopathy. CARDIOVASCULAR: Regular rate and rhythm RESPIRATORY: Breath sounds equal bilaterally. No accessory muscle use. GASTROINTESTINAL: Abdomen soft, non-tender, nondistended. MUSCULOSKELETAL: No cyanosis, or edema. Moving iliopsoas, quadriceps, hamstrings 4/5, 2-3 plantarflexion and dorsiflexion reportedly chronic. BACK: Loss of range of motion due to pain. Neuro: Awake, alert. Speech is slow. Follows commands. Pupils equal. Facial motor symmetric. Results - Laboratory Findings CBC and BMP: 01/11/18 06:10 01/11/18 06:10 Abnormal lab findings: Abnormal Labs 01/10/18 01/10/18 01/10/18 01:49 01:49 06:00 MPV 6.7 L [place] % (Auto) 17.9 H [place] # (Auto) 1.2 H BUN 5 L Total Bilirubin 1.4 H AST 54 H Troponin I Less than 0.02 L Urine Color Dark-yellow H Urine Clarity Hazy H Urine Mucus Moderate H Assessment and Plan - Plan I reviewed his clinical and radiological studies Head CT 01/10/18 00:09 CONCLUSION: 1. No acute intracranial abnormality. Lumbar Spine CT 01/10/18 00:09 CONCLUSION: 1. No fracture or dislocation. 2. Scoliotic curvature. 3. Diffuse degenerative changes as detailed above. Special note is made of a left posterior lateral disc bulge that impinges the left L4 nerve root within the neural foramen with a right posterior lateral disc bulge at L5-S1 impinging the right L5 nerve root. Each level detailed in the above discussion. Weakness with multiple falls at home. -Head CT shows no acute intracranial abnormality Lumbar spinal; stenosis.Lumbar spine CT showed no fracture or dislocation. Scoliotic curvature. Diffuse degenerative changes as detailed. Left posterior lateral disc bulge that impinges the left L4 nerve root within the neural foramen with a right posterior lateral disc bulge at L5-S1 impinging the right L5 nerve root. REcommend MRI of the lumbar spine. , I have discussed with him the alternative methods of treatment including, conservative management, pain management by an interventional aircraft painter, or a surgical decompression, which should always be a last resort. Recommend physical therapy, occupational therapy eval and treat HTN. Continue home medications lisinopril, propanolol. Generalized tremor upper extremity. Suspect beniogn essential tremor. Continue propranolol Anxiety. continue Xanax Renal: monitor closely urine output, BUN and creatinine Endocrine: Continue to Monitor serial Acu checks and SSI as needed in detail ID monitor for signs of infection Protonix for stress ulcer prophylaxis Ran hose and SCD's for DVT prophylaxis. Lovenox Caprini VTE Risk Assessment Caprini VTE Risk Assessment: Moderate/High Risk (score >= 2) Caprini Risk Assessment Model: Point Value = 1 Point Value = 2 Point Value = 3 Point Value = 5 Age 41-60 Minor surgery BMI > 25 kg/m2 Swollen legs Varicose veins or History of unexplained or recurrent spontaneous Oral contraceptives or hormone replacement Sepsis (< 1 month) Serious lung disease, including pneumonia (< 1 month) Abnormal pulmonary function Acute myocardial infarction Congestive heart failure (< 1 month) History of inflammatory bowel disease Medical patient at bed rest Age 61-74 Arthroscopic surgery Major open surgery (> 45 min) Laparoscopic surgery (> 45 min) Malignancy Confined to bed (> 72 hours) Immobilizing plaster cast Central venous access Age >= 75 History of VTE Family history of VTE Factor V Leiden Prothrombin [id number] Lupus anticoagulant Anticardiolipin antibodies Elevated serum homocysteine Heparin-induced thrombocytopenia Other congenital or acquired thrombophilia Stroke (< 1 month) Elective arthroplasty Hip, pelvis, or leg fracture Acute spinal cord injury (< 1 month) Prophylaxis Regimen: Total Risk Factor Score Risk Level Prophylaxis Regimen 0-1 Low Early ambulation 2 Moderate Order ONE of the following: *Sequential Compression Device (SCD) *Heparin 5000 units SQ BID 3-4 Higher Order ONE of the following medications: *Heparin 5000 units SQ TID *Enoxaparin/Lovenox 40 mg SQ daily (WT < 150 kg, CrCl > 30 mL/min) *Enoxaparin/Lovenox 30 mg SQ daily (WT < 150 kg, CrCl > 10-29 mL/min) *Enoxaparin/Lovenox 30 mg SQ BID (WT < 150 kg, CrCl > 30 mL/min) AND/OR *Sequential Compression Device (SCD) 5 or more Highest Order ONE of the following medications: *Heparin 5000 units SQ TID (Preferred with Epidurals) *Enoxaparin/Lovenox 40 mg SQ daily (WT < 150 kg, CrCl > 30 mL/min) *Enoxaparin/Lovenox 30 mg SQ daily (WT < 150 kg, CrCl > 10-29 mL/min) *Enoxaparin/Lovenox 30 mg SQ BID (WT < 150 kg, CrCl > 30 mL/min) AND *Sequential Compression Device (SCD) Full code Discussed Condition With the patient The exam, history, and the medical decision-making described in the above note were completed with the assistance of the mid-level provider. I reviewed and agree with the findings presented. I attest that I had a [id number] encounter with the patient on the same day, and personally performed and documented my assessment and findings in the medical record.
[2018-01-10] MEDS: Sod Chloride 0.9% Inj 1,000 ML IV.CONT SCH ×2 (15:40→18:47)
[2018-01-10] MEDS: Enoxaparin Inj 40 MG/0.4 ML Syringe SQ SCH (18:44)
[2018-01-10] MEDS ORDERED: traZODone 50 MG Tablet PO PRN (21:00)
[2018-01-11 07:21] LABS: Baso % (Auto) 0.4 % (0.0-2.0); Hematocrit 44.3 % (39.0-51.0); Hemoglobin 15.1 gm/dL (13.0-17.0); Lymph # (Auto) 0.7 th/mm3 (1.0-4.8); Lymph % (Auto) 12.8 % (9.0-44.0); Mean Corpuscular HGB Conc 34.2 % (32.0-36.0); Mean Corpuscular Hemoglobin 32.8 pg (27.0-34.0); Mean Corpuscular Volume 95.9 fL (80.0-100.0); Mean Platelet Volume 7.1 fL (7.0-11.0); Mono # (Auto) 0.7 th/mm3 (0.0-0.9); Mono % (Auto) 13.5 % (0.0-8.0); Neut % (Auto) 73.3 % (16.0-70.0); Platelet Count 155 th/mm3 (150-450); Red Blood Count 4.62 mil/mm3 (4.50-5.90); Red Cell Distribution Width 13.2 % (11.6-17.2); White Blood Count 5.4 th/mm3 (4.0-11.0)
[2018-01-11 07:58] LABS: Anion Gap 13 meq/L (5-15); Blood Urea Nitrogen 11 mg/dL (7-18); Calcium 8.3 mg/dL (8.5-10.1); Carbon Dioxide 24.3 meq/L (21.0-32.0); Chloride 101 meq/L (98-107); Glomerular Filtration Rate Greater Than 89 mL/min (>89); Glucose,Random 123 mg/dL (74-106); Potassium 3.8 meq/L (3.5-5.1); Sodium 138 meq/L (136-145)
--- NOTE | 2018-01-11 09:51 | P.PNNS ---
Subjective Interval history: Mr. 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 He also reports of history of lumbar stenosis on prior MRI and has undergone epidural injection with Pain Management at [facility]. His low back pain however is getting worse and has had more difficulty mobilizing. His pain is localized in his lower back. He denies radiating pain. He has chronic paresthesias and weakness in his legs and feet. CT of the lumbar spine showed stenosis. Neurosurgery consultation was requested. No acute issues overnight; he remains in the H pod in the emergency department. Physical Exam Vital signs: Vital Signs 01/10/18 12:28 01/10/18 16:37 01/10/18 17:32 Temperature 98.2 F 98.2 F 98.2 F Pulse Rate 68 68 72 Respiratory Rate 20 20 20 Blood Pressure 160/80 H 127/83 148/62 H Pulse Oximetry 20 L 98 96 01/10/18 20:00 01/11/18 00:00 01/11/18 08:00 Temperature 98.2 F 99.1 F 98.5 F Pulse Rate 85 78 75 Respiratory Rate 16 16 14 Blood Pressure 118/71 115/67 144/76 H Pulse Oximetry 94 L 96 94 L Intake & Output 01/10/18 01/11/18 01/11/18 18:59 06:59 18:59 Intake Total 600 / 600 Balance 600 / 600 Intake: Oral 600 / 600 Other: # Voids 3 Date of Last Bowel Movement 01/10/18 # Bowel Movements 1 - Routine Neurological Exam Alert and conversant. Follows commands appropriately 4. Extremities bear stigmata of chronic [id number] disease. Assessment and Plan - Plan Patient with recent worsening of chronic low back pain on a background of known severe lumbar degenerative disease and chronic lower extremity paresthesias. His CT scan here demonstrates severe degenerative changes and lumbar stenosis throughout. We are awaiting an MRI scan of that region for additional information. It is not clear whether there will be any surgical intervention indicated due to the widespread nature of his degenerative changes and his lack of new radicular symptoms, but it will be helpful to have the MRI to assess the degree of lumbar stenosis and to inform any surgical plans.
[2018-01-11] MEDS: Enoxaparin Inj 40 MG/0.4 ML Syringe SQ SCH (11:43)
[2018-01-11] MEDS: ALPRAZolam 0.5 MG Tablet PO SCH (11:46)
--- NOTE | 2018-01-11 14:28 | P.PN ---
Subjective Interval history: Follow up Visit progressive radiculopathy, generalized weakness, multiple falls , Charcot Brianda tooth syndrome, HTN. Patient seen and examined today. Mother at the bedside. Mother appears to be very severely anxious regarding patient's condition. Discussed with patient plan for an MRI today. Mother states that neurosurgeon has come in to see the patient and says no surgical intervention needed to be done. Discussed the need for an MRI as per request of neurosurgeon so that they can be sure that the patient would not need any surgical intervention. Patient amenable to MRI. Denies pain and discomfort. Denies SOB/ dyspnea. Denies chest pain, palpitations, headaches, dizziness. Denies fevers, chills, n/v/d. Physical Exam Vital signs: Vital Signs 01/10/18 16:37 01/10/18 17:32 01/10/18 20:00 Temperature 98.2 F 98.2 F 98.2 F Pulse Rate 68 72 85 Respiratory Rate 20 20 16 Blood Pressure 127/83 148/62 H 118/71 Pulse Oximetry 98 96 94 L 01/11/18 00:00 01/11/18 08:00 01/11/18 12:27 Temperature 99.1 F 98.5 F 98.7 F Pulse Rate 78 75 75 Respiratory Rate 16 14 16 Blood Pressure 115/67 144/76 H 125/69 Pulse Oximetry 96 94 L 95 Intake & Output 01/10/18 01/11/18 01/11/18 18:59 06:59 18:59 Intake Total 600 / 600 Balance 600 / 600 Intake: Oral 600 / 600 Other: # Voids 3 Date of Last Bowel Movement 01/10/18 # Bowel Movements 1 Narrative: GENERAL: This is a well-nourished, well-developed patient, in no apparent distress. SKIN: Warm and dry. HEENT: Normocephalic. Pupils equal round. Nose without bleeding. Airway patent. Facial erythema, with plaquing appears to be rosacea related versus eczema NECK: Trachea midline. Supple. CARDIOVASCULAR: Regular rate and rhythm without murmurs, gallops, or rubs. RESPIRATORY: Diminished bases. No wheezes, rales, or rhonchi. GASTROINTESTINAL: Abdomen soft, non-tender, nondistended. Bowel Sounds normoactive x4. MUSCULOSKELETAL: Extremities without clubbing, cyanosis. Left ankle edema. Bilateral upper extremity contractures of bilateral hands with tremors noted bilaterally. NEUROLOGICAL: Awake and alert. Oriented to place, person. BLE movement minimal, ROM Limited, bilateral foot deformities. Normal speech. Results - Labs CBC & Chem 7: 01/11/18 06:10 01/11/18 06:10 Laboratory Results - last 24 hr 01/11/18 01/11/18 06:10 06:10 WBC 5.4 RBC 4.62 Hgb 15.1 Hct 44.3 MCV 95.9 MCH 32.8 MCHC 34.2 RDW 13.2 Plt Count 155 MPV 7.1 Neut % (Auto) 73.3 H Lymph % (Auto) 12.8 [place] % (Auto) 13.5 H Eos % (Auto) 0.0 Baso % (Auto) 0.4 Neut # (Auto) 4.0 Lymph # (Auto) 0.7 L [place] # (Auto) 0.7 Eos # (Auto) 0.0 Baso # (Auto) 0.0 WBC Differential . Differential Comment Auto diff final Sodium 138 Potassium 3.8 Chloride 101 Carbon Dioxide 24.3 Anion Gap 13 BUN 11 Creatinine 0.53 L Estimated GFR Greater than 89 Random Glucose 123 H Calcium 8.3 L Assessment and Plan - Plan Patient is a 62-year-old male with past medical history of Charcot Brianda tooth, anxiety, depression, mitral valve prolapse, HTN who came into the hospital for progressive generalized weakness, status post multiple falls at home in the past few months Progressive radiculopathy based on CT Generalized weakness, multiple falls at home. -Head CT shows no acute intracranial abnormality -Lumbar spine CT showed no fracture or dislocation. Scoliotic curvature. Diffuse degenerative changes as detailed. Left posterior lateral disc bulge that impinges the left L4 nerve root within the neural foramen with a right posterior lateral disc bulge at L5-S1 impinging the right L5 nerve root. Each level detailed in the above discussion. -Neurosurgery consulted for further evaluation recommendation. Non surgical recommendation. -MRI requested -Physical therapy, occupational therapy eval and treat HTN -Continue home medications lisinopril, propanolol. Generalized tremor upper extremity, continue propranolol Anxiety, continue Xanax DVT prop Lovenox Code Status: Full Code Discussed Condition With: Patient, nursing, Dr. Dang Discharge Planning: Plan to DC home when cleared by neurosurgery. Clinically improved.
[2018-01-11] MEDS: Sod Chloride 0.9% Inj 1,000 ML IV.CONT SCH (15:18)
--- NOTE | 2018-01-11 17:50 | MR ---
EXAM DATE: 01/11/2018 5:40 PM EDT AGE/SEX: 62 years / Male INDICATIONS: Inability to ambulate. c CLINICAL DATA: This is the patient's initial encounter. Patient reports that signs and symptoms have been present for 1 day and indicates a pain score of 4/10. MEDICAL/SURGICAL HISTORY: None. . Left foot surgery. COMPARISON: No prior exams available for comparison. TECHNIQUE: Multiplanar, multisequence MRI of the lumbar spine was performed without contrast. Patie nt was scanned in a sitting position; neutral, flexion, and extension scans were performed in the sa gittal plane. FINDINGS: The most caudal-appearing lumbar vertebra is numbered as L5. The marrow signal appears intact. No si gnificant compression deformities, spondylolisis, or spondylolesthesis is seen. L1-L2: Slight degenerative changes are present in the disc space and facets. There is moderate overa ll thecal sac stenosis due to central disc/osteophyte complex and hypertrophic changes. L2-L3: Slight degenerative changes are present in the disc space and facets. There is moderate to s evere overall thecal sac stenosis due to central disc/osteophyte complex and hypertrophic changes. L 3-L4: There is moderate neural foramina compromise on the left due to asymmetrical bulging disc and hypertrophic changes. There is moderate overall thecal sac stenosis due to bulging disc and hypertrop hic changes. L4-L5: There is significant overall thecal sac stenosis due to bulging disc and hypertrophic change s. There is moderate neural foramina compromise bilaterally due to bulging disc and hypertrophic kris nges. L5-S1: Slight degenerative changes are present in the disc space and facets. Slight bulging disc an d hypertrophic changes are seen with indentation on the thecal sac and no significant compromise to t he thecal sac or the exiting nerve roots. CONCLUSION: 1. Significant thecal sac stenosis L4-5, moderate thecal sac stenosis L1-2, L2-3, L3-4. 2. Neural foraminal compromise left L3-4, bilateral L4-5. Electronically signed by: Thomas Ruiz MD 01/11/2018 5:49 PM EDT
--- NOTE | 2018-01-11 18:05 | MR ---
EXAM DATE: 01/11/2018 5:44 PM EDT AGE/SEX: 62 years / Male INDICATIONS: Inability to ambulate. CLINICAL DATA: This is the patient's initial encounter. Patient reports that signs and symptoms have been present for 1 day and indicates a pain score of 4/10. MEDICAL/SURGICAL HISTORY: None. . Left foot surgery. COMPARISON: No prior exams available for comparison. TECHNIQUE: Multiplanar, multisequence MRI of the thoracic spine was performed. FINDINGS: The marrow signal appears intact. No significant compression deformities are seen. No significant c ord compression is identified. The spinal cord appears intact. S-shaped scoliosis is present with s uperimposed degenerative change at multiple levels to a moderate degree. T1-T2: No appreciable compromise to the thecal sac, spinal cord, or the exiting nerve roots are seen . The neural foramina are grossly patent bilaterally. T2-T3: No appreciable compromise to the thecal sac, spinal cord, or the exiting nerve roots are seen . The neural foramina are grossly patent bilaterally. T3-T4: No appreciable compromise to the thecal sac, spinal cord, or the exiting nerve roots are seen . The neural foramina are grossly patent bilaterally. T4-T5: No appreciable compromise to the thecal sac, spinal cord, or the exiting nerve roots are seen . The neural foramina are grossly patent bilaterally. T5-T6: No appreciable compromise to the thecal sac, spinal cord, or the exiting nerve roots are seen . The neural foramina are grossly patent bilaterally. T6-T7: No appreciable compromise to the thecal sac, spinal cord, or the exiting nerve roots are seen . The neural foramina are grossly patent bilaterally. T7-T8: No appreciable compromise to the thecal sac, spinal cord, or the exiting nerve roots are seen . The neural foramina are grossly patent bilaterally. T8-T9: No appreciable compromise to the thecal sac, spinal cord, or the exiting nerve roots are seen . The neural foramina are grossly patent bilaterally. T9-T10: There is no evidence for any significant compromise to the thecal sac, or the exiting nerve roots. No appreciable thecal sac stenosis is seen. The neural foramina and lateral recess appear pa tent bilaterally. T10-T11: There is anterior extradural impression and effacement of the anterior CSF space due to bul ging disc and hypertrophic changes, however overall no significant thecal sac stenosis is seen. The neural foramina are grossly patent bilaterally. T11-T12: No appreciable compromise to the thecal sac, spinal cord, or the exiting nerve roots are se en. The neural foramina are grossly patent bilaterally. T12-L1: No appreciable compromise to the thecal sac, spinal cord, or the exiting nerve roots are see n. The neural foramina are grossly patent bilaterally. CONCLUSION: Scoliosis with degenerative changes and slight effacement of the anterior CSF space T10- 11 without any significant interval sac stenosis or cord compromise. Electronically signed by: Thomas Ruiz MD 01/11/2018 6:04 PM EDT
[2018-01-11 18:39] LABS: Albumin 3.3 g/dL (3.4-5.0)
[2018-01-11 18:41] LABS: Total Protein 6.8 g/dL (6.4-8.2)
[2018-01-12] MEDS: ALPRAZolam 0.5 MG Tablet PO SCH ×2 (00:10→09:44)
[2018-01-12 03:28] VITALS: RESP 16
[2018-01-12] MEDS: Sod Chloride 0.9% Inj 1,000 ML IV.CONT SCH (07:47)
[2018-01-12] MEDS ORDERED: Lisinopril 10 MG Tablet PO SCH (09:00)
[2018-01-12] MEDS: Enoxaparin Inj 40 MG/0.4 ML Syringe SQ SCH (09:45)
--- NOTE | 2018-01-12 10:35 | P.PNNS ---
Subjective Interval history: No acute issues overnight. I spent some additional time talking to the patient about his chief complaint today. His back pain primarily bothers him when he bends over, especially when he is only partially bent over, such as when he is brushing his teeth or using a sink to wash his hands. He uses a small shopping cart around his home as a walker, and when he goes out he uses a shopping cart as a walker at the store. He has to take breaks occasionally due to the back pain. He also feels that his legs get "weak" and "wobbly" if he stands for too long at once, but denies guido radicular pain. Physical Exam Vital signs: Vital Signs 01/11/18 12:27 01/11/18 16:00 01/11/18 19:39 Temperature 98.7 F 98.3 F 98.8 F Pulse Rate 75 77 74 Respiratory Rate 16 16 18 Blood Pressure 125/69 155/74 H 146/81 H Pulse Oximetry 95 98 94 L 01/11/18 23:54 01/12/18 03:27 01/12/18 05:47 Temperature 98.2 F 98.8 F Pulse Rate 69 61 Respiratory Rate 17 16 Blood Pressure 151/77 H 169/73 H 138/70 Pulse Oximetry 95 95 01/12/18 09:42 Temperature 98.8 F Pulse Rate 52 L Respiratory Rate 16 Blood Pressure 133/57 L Pulse Oximetry 93 L Intake & Output 01/11/18 01/12/18 01/12/18 18:59 06:59 18:59 Intake Total 0 / 0 Output Total 350 / 350 Balance 0 / 0 -350 / -350 Weight 82.9 kg Intake: IV 0 / 0 NS Inj 1,000 ML @ 50 mls/hr IV. 0 / 0 CONT .Q20H LUIS Rx#:[id number] Output: Urine 350 / 350 Other: # Voids 1 # Urine Diapers 2 Date of Last Bowel Movement 01/10/18 01/11/18 # Bowel Movements 1 - Routine Neurological Exam Alert and conversant. Follows commands appropriately 4. Reasonably good strength. - Additional findings Additional findings: His MRI was done yesterday. He has severe diffuse degenerative disease of essentially his entire lumbosacral spine. There is severe lumbar spinal stenosis throughout, worst at L4/5 but still impressive from L2 down. His thoracic spine is largely spared from this. He does have significant exaggerated upper thoracic kyphosis, but there is no significant canal compromise or cord compression there. Assessment and Plan - Plan Mr. Baker has severe degenerative disease of the entire lumbosacral spine with severe central spinal stenosis. His symptoms include mechanical back pain and what sounds like possible neurogenic claudication, though he has more pronounced weakness than pain. His problem might be amenable to surgery, but this would be a fairly large surgical procedure, essentially requiring decompression of the entire lumbar spine and possible fusion as well to alleviate his mechanical pain and the degree of spondylosis that he has. However, this would be a major surgical undertaking. I discussed this with him , and he brought up that he has tried some physical therapy in the past, and that he found it helpful. I think it would be very reasonable for him to try this again, in an effort to make surgery the last possible resort. He agreed and would like to try working with physical/occupational therapy, so I would recommend initiation of that today. He and his mother are both disabled and do not drive, so would also recommend trying to see if he could receive home physical therapy/Occupational Therapy. Otherwise, he would have to take a taxicab to therapy sessions, which would be cost prohibitive and I suspect would negatively affect his compliance.
--- NOTE | 2018-01-12 11:22 | P.DS ---
Date of admission: 01/10/18 02:31 Primary care physician: Tomas Thurman Attending physician on discharge: Luis Worley Anticipated date of discharge: 01/12/18 Brief History from admission: Patient is a 62-year-old male with past medical history of Charcot Brianda tooth, anxiety, depression, mitral valve prolapse, HTN who came into the hospital for progressive generalized weakness, status post multiple falls at home in the past few months. Patient states that he uses walker at home lives with his mother but he keeps on falling every time he goes to the bathroom, or just moving around the house. States he is unable to take care of himself, his mother is 90 years old unable to take care of him. Denies SOB/ dyspnea. Denies chest pain, palpitations, headaches, dizziness. Denies fevers, chills, n/v/d. Denies dysuria. Head CT shows no acute intracranial abnormality Lumbar spine CT showed no fracture or dislocation. Scoliotic curvature. Diffuse degenerative changes as detailed. Left posterior lateral disc bulge that impinges the left L4 nerve root within the neural foramen with a right posterior lateral disc bulge at L5-S1 impinging the right L5 nerve root. Each level detailed in the above discussion. Patient update on day of discharge: Follow up Visit progressive radiculopathy, generalized weakness, multiple falls , Charcot Brianda tooth syndrome, HTN. Patient seen and examined today. Reports he is doing well. States that he walked around physical therapy before and he was doing okay. Discussed with patient results of MRI and waiting for neurosurgery input for management. States that neurosurgeon has seen him and will not do any surgical procedure for now. Denies pain and discomfort. Denies SOB/ dyspnea. Denies chest pain, palpitations, headaches, dizziness. Denies fevers, chills, n/v/d. Denies dysuria. DS: Diagnosis - Discharge Diagnosis (1) Lumbar stenosis Status: Acute DS: Medications - Discharge Medications Prescriptions: prednisone 10 mg PO DAILY #7 tab DS: Summary Hospital Course: Patient is a 62-year-old male with past medical history of Charcot Brianda tooth, anxiety, depression, mitral valve prolapse, HTN who came into the hospital for progressive generalized weakness, status post multiple falls at home in the past few months. He has progressive radiculopathy based on CT. Head CT shows no acute intracranial abnormality. Lumbar spine CT showed no fracture or dislocation. Scoliotic curvature. Diffuse degenerative changes as detailed. Left posterior lateral disc bulge that impinges the left L4 nerve root within the neural foramen with a right posterior lateral disc bulge at L5-S1 impinging the right L5 nerve root. Each level detailed in the above discussion. MRI of the thoracic spine showed scoliosis with degenerative changes and slight effacement of the anterior CSF space T10-11 without any significant interval sac stenosis or cord compromise. Lumbar spine MRI showed significant thecal sac stenosis L4-5, moderate thecal sac stenosis L1 to 2, L2-3, L3-4. Neural foraminal compromise left L3-4, bilateral L4-5. Neurosurgery consulted , recommend Non surgical recommendation for now with trial of physical therapy and Occupational Therapy. He will need to have a follow-up with Dr. Hoffmann in the outpatient. Patient was started on Decadron while he was at the hospital will taper off the prednisone for 7 days as per directions of neurosurgery. Neurosurgery does not think that he has inflammatory changes to warrant being kept on steroids. He continues with his home medication for hypertension, anxiety, generalized tremor. Patient has met maximal benefits of hospitalization. Clinically stable for discharge. He will be followed by home health care PT/OT/nursing. He is to follow-up with his PCP and Dr. Hoffmann. - Time Spent with Patient Total time spent providing and/or coordinating discharge services: Greater than 30 minutes Exam Vital signs: Vital Signs 01/11/18 12:27 01/11/18 16:00 01/11/18 19:39 Temperature 98.7 F 98.3 F 98.8 F Pulse Rate 75 77 74 Respiratory Rate 16 16 18 Blood Pressure 125/69 155/74 H 146/81 H Pulse Oximetry 95 98 94 L 01/11/18 23:54 01/12/18 03:27 01/12/18 05:47 Temperature 98.2 F 98.8 F Pulse Rate 69 61 Respiratory Rate 17 16 Blood Pressure 151/77 H 169/73 H 138/70 Pulse Oximetry 95 95 01/12/18 09:42 Temperature 98.8 F Pulse Rate 52 L Respiratory Rate 16 Blood Pressure 133/57 L Pulse Oximetry 93 L Intake & Output 01/11/18 01/12/18 01/12/18 18:59 06:59 18:59 Intake Total 0 / 0 Output Total 350 / 350 Balance 0 / 0 -350 / -350 Weight 82.9 kg Intake: IV 0 / 0 NS Inj 1,000 ML @ 50 mls/hr IV. 0 / 0 CONT .Q20H LUIS Rx#:[id number] Output: Urine 350 / 350 Other: # Voids 1 # Urine Diapers 2 Date of Last Bowel Movement 01/10/18 01/11/18 # Bowel Movements 1 Narrative: GENERAL: This is a well-nourished, well-developed patient, in no apparent distress. SKIN: Warm and dry. HEENT: Normocephalic. Pupils equal round. Nose without bleeding. Airway patent. Facial erythema, with plaquing appears to be rosacea related versus eczema NECK: Trachea midline. Supple. CARDIOVASCULAR: Regular rate and rhythm without murmurs, gallops, or rubs. RESPIRATORY: Diminished bases. No wheezes, rales, or rhonchi. GASTROINTESTINAL: Abdomen soft, non-tender, nondistended. Bowel Sounds normoactive x4. MUSCULOSKELETAL: Extremities without clubbing, cyanosis. Left ankle edema. Bilateral upper extremity contractures of bilateral hands with tremors noted bilaterally. NEUROLOGICAL: Awake and alert. BLE movement minimal, ROM Limited, bilateral foot deformities. Normal speech. Results Procedures completed during hospitalization: None Labs on day of discharge: Labs from last 24 hours 01/11/18 06:10 Total Bilirubin 0.8 Direct Bilirubin 0.2 Indirect Bilirubin 0.6 AST 27 ALT 24 Alkaline Phosphatase 63 Total Protein 6.8 D Albumin 3.3 L - Impressions ITS Impressions Head CT 01/10/18 00:09 CONCLUSION: 1. No acute intracranial abnormality. . Lumbar Spine CT 01/10/18 00:09 CONCLUSION: 1. No fracture or dislocation. 2. Scoliotic curvature. 3. Diffuse degenerative changes as detailed above. Special note is made of a left posterior lateral disc bulge that impinges the left L4 nerve root within the neural foramen with a right posterior lateral disc bulge at L5-S1 impinging the right L5 nerve root. Each level detailed in the above discussion. Lumbar Spine MRI 01/11/18 00:00 CONCLUSION: 1. 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 2. Neural foraminal compromise left L3-4, bilateral L4-5. Thoracic Spine MRI 01/11/18 00:00 CONCLUSION: Scoliosis with degenerative changes and slight effacement of the anterior CSF space T10-11 without any significant interval sac stenosis or cord compromise. Discharge Plan - Discharge Disposition Patient Disposition: /Home Health Service - Discharge Condition Condition: Stable - Discharge Order Discharge Orders: Discharge Order (Routine); Ordered 01/12/18 Ordered By: Linda Wren - Physicians Team Attending Provider: Luis Worley Other Providers: Zeferino Hoffmann MD ; [facility]
--- NOTE | 2018-01-12 11:26 | P.DCO ---
- Physical Therapy Order: Evaluate and treat - Occupational Therapy Order: Evaluate and treat - Home Health Nursing Order: Medical education, Signs/symptoms of disease process, Medication education-adverse effect, Nursing assessment with vital signs - Certification I have seen patient Cortes Baker on 01/12/18. My clinical findings support the need for the requested home health care services because: Limited mobility due to disease progression, Deconditioned with increased weakness, Limited ability to care for self, High risk of falls I certify that my clinical findings support that this patient is homebound because: Unsteady gait/balance, Unable to use public transportation
[2018-01-12 12:21] VITALS: BP 116/67; PULSE 48; TEMP 98.7; O2SAT 96
== END 2018-01-12 14:25 | disposition home health service (06) ==
LOC: PHEDA 22:12 → PHED 22:12 → PHEDA 01-10 04:59 → NEPHCDU 01-10 05:25
PROVIDERS: ADMIT Hospitalist; ATTEND Hospitalist

== ENCOUNTER 2018-02-06 09:32 | Inpatient (IN) ==
--- NOTE | 2018-02-06 10:33 | ED ---
HPI General Chief complaint: Weakness Stated complaint: Evac/Weakness Time Seen by Provider: 02/06/18 09:42 Source: patient and EMS Mode of arrival: EMS Limitations: no limitations History of Present Illness HPI narrative: Patient is a 62-year-old male brought in by EMS due to general weakness. Patient often has trouble with weakness and requires assistance from paramedics to get up, but he says recently this has been worsening. Today he was unable to get off the couch. EMS states that when fire arrived, he had an oxygen saturation of 91% on room air. He has reported a cough for the past few days. He denies any chest pain. He denies feeling short of breath. He says he has felt his heart racing, but this is calm down. He does report history of anxiety as well. He has been experiencing nausea, but has not vomited. He denies any abdominal pain. He has not had any fevers at home. Severity is mild to moderate. Related Data Home Medications Medication Instructions Recorded Confirmed alprazolam [Xanax] 0.5 mg PO BID PRN 01/09/18 01/09/18 propranolol 50 mg PO TID 01/09/18 01/09/18 trazodone 50 mg PO HS PRN 01/09/18 01/09/18 Previous Rx's Medication Instructions Recorded lisinopril 10 mg PO DAILY #0 tab 01/12/18 Allergies Allergy/AdvReac Type Severity Reaction Status Date / Time No Known Allergies Allergy Verified 02/06/18 09:44 Review of Systems ROS: all other systems reviewed are negative Constitutional Denies chills and Denies fever(s) ENT Denies dizziness Cardiovascular Denies chest pain, Denies edema and Reports palpitations Respiratory Denies cough and Denies dyspnea Gastrointestinal Denies abdominal pain and Reports nausea Musculoskeletal Denies myalgias and Denies arthralgias Integumentary/Breasts Denies rash and Denies wounds Neurologic Denies focal weakness and Denies numbness [facility] Medical History Medical History Anxiety (Acute) Charcot Brianda Tooth muscular atrophy (Acute) Chronic back pain (Acute) Elevated cholesterol (Acute) Heart palpitations (Acute) Hypertension (Acute) Intermittent depression (Acute) Leg weakness, bilateral (Acute) Surgical History Surgical History History of foot surgery (Acute) History of major orthopedic surgery (Acute) Family History Family History Father Emphysema lung Heart attack Social History Social History Substance History: No History of Abuse Second Hand Smoke Exposure: No Smoking Status: Former smoker Tobacco Type: Cigarettes How Often Do You Have a Drink Containing Alcohol: 2 to 3 times a week Recent Travel in [facility] within the Last 8 Weeks: No Recent Out of Country Travel within the Last 8 Weeks: No Immunization History Tetanus Immunization: >5 Years Hx Influenza Vaccine This Season: No Exam Narrative Exam Narrative: GENERAL: Awake and alert, in no acute distress. SKIN: Focused skin assessment warm/dry. No wounds or signs of infection. HEAD: Atraumatic. Normocephalic. EYES: Pupils equal and round. No scleral icterus. ENT: Mucous membranes pink and moist. NECK: Trachea midline. No JVD. CARDIOVASCULAR: Regular rate and rhythm. No murmur appreciated. RESPIRATORY: No accessory muscle use. Clear to auscultation. Breath sounds equal bilaterally. GASTROINTESTINAL: Abdomen soft, non-tender, nondistended. MUSCULOSKELETAL: No obvious deformities. No clubbing. No cyanosis. No edema. NEUROLOGICAL: Awake and alert. No obvious cranial nerve deficits. Motor grossly within normal limits. Normal speech. PSYCHIATRIC: Appropriate mood and affect; insight and judgment normal. Course Initial Documented Vital Signs Temperature 98.7 F 02/06/18 09:37 Pulse Rate 67 02/06/18 09:37 Respiratory Rate 18 02/06/18 09:37 Blood Pressure 156/64 H 02/06/18 09:37 Pulse Oximetry 95 02/06/18 09:37 Last Documented Vital Signs Temperature 98.7 F 02/06/18 09:37 Pulse Rate 69 02/06/18 11:00 Respiratory Rate 16 02/06/18 11:00 Blood Pressure 138/68 02/06/18 11:00 Pulse Oximetry 97 02/06/18 11:00 Medical Decision Making MDM Narrative Medical decision making narrative: Patient is a 62-year-old male who comes in complaining of generalized weakness. Patient lives at home with his elderly mother who has to care for him. IV established, labs sent. Labs show a low platelet count of 62. Urinalysis is positive for nitrates. Given IV fluids, Rocephin. I believe his UTI is causing him to be increasingly weak and he would benefit from an observation stay. Medical Screen Exam Complete: Yes Emergency Medical Condition: Yes Differential Diagnosis Differential Diagnosis: UTI versus electrolyte abnormality versus dehydration versus pneumonia Medical Records Medical records reviewed: Yes I reviewed the patient's medical records. Lab Data Lab results reviewed: Yes I reviewed the patient's lab results. Result diagrams: 02/06/18 10:25 02/06/18 10:25 Lab Results 02/06/18 02/06/18 02/06/18 Range/Units 10:25 10:25 10:25 CBC w Diff Slide review pending WBC 4.8 (4.0-11.0) th/mm3 RBC 4.86 (4.50-5.90) mil/mm3 Hgb 15.5 (13.0-17.0) gm/dL POC Hgb (Calc) Not Reportable Hct 45.9 (39.0-51.0) % POC Hct Not Reportable MCV 94.6 (80.0-100.0) fL MCH 32.0 (27.0-34.0) pg MCHC 33.8 (32.0-36.0) % RDW 12.1 (11.6-17.2) % Plt Count 62 L D (150-450) th/mm3 MPV 7.0 (7.0-11.0) fL Neut % (Auto) 79.3 H (16.0-70.0) % Lymph % (Auto) 9.8 (9.0-44.0) % Kleberg % (Auto) 8.8 H (0.0-8.0) % Eos % (Auto) 0.8 (0.0-4.0) % Baso % (Auto) 1.3 (0.0-2.0) % Neut # (Auto) 3.8 (1.8-7.7) th/mm3 Lymph # (Auto) 0.5 L (1.0-4.8) th/mm3 Kleberg # (Auto) 0.4 (0.0-0.9) th/mm3 Eos # (Auto) 0.0 (0.0-0.4) th/mm3 Baso # (Auto) 0.1 (0.0-0.2) th/mm3 WBC Differential . Diff Scan Auto diff confirmed Differential Comment . Platelet Estimate Low L (Normal) Platelet Morphology Normal (Normal) PT 10.7 (9.8-11.6) sec INR 1.1 Ratio APTT 26.6 (24.3-30.1) sec POC Sodium 143 (137-144) mmol/L POC Potassium 3.8 (3.6-5.0) mmol/L POC Chloride 100 L (102-111) mmol/L POC BUN 11 (5-21) mg/dL POC Creatinine 0.5 L (0.6-1.3) mg/dL POC Glucose 146 H (68-110) mg/dL Ur Collection Type Urine Color (Yellw/Straw) Urine Clarity (Clear) Urine pH (5.0-8.5) Ur Specific Gilman (1.002-1.035) Urine Protein (Neg-Trace) mg/dL Urine Glucose (UA) (Negative) mg/dL Urine Ketones (Negative) mg/dL Urine Occult Blood (Negative) Urine Nitrate (Negative) Urine Bilirubin (Negative) Urine Ictotest (Negative) Urine Urobilinogen (Less than 2) mg/dL Ur Leukocyte Esterase (Negative) Urine RBC (0-3) /hpf Urine WBC (0-5) /hpf Ur Squamous Epith Cells (0-5) /hpf Urine Bacteria (None) /hpf Micro UA Comment Ur Microscopic Review Urine Culture Comments 02/06/18 Range/Units 11:38 CBC w Diff WBC (4.0-11.0) th/mm3 RBC (4.50-5.90) mil/mm3 Hgb (13.0-17.0) gm/dL POC Hgb (Calc) Hct (39.0-51.0) % POC Hct MCV (80.0-100.0) fL MCH (27.0-34.0) pg MCHC (32.0-36.0) % RDW (11.6-17.2) % Plt Count (150-450) th/mm3 MPV (7.0-11.0) fL Neut % (Auto) (16.0-70.0) % Lymph % (Auto) (9.0-44.0) % Kleberg % (Auto) (0.0-8.0) % Eos % (Auto) (0.0-4.0) % Baso % (Auto) (0.0-2.0) % Neut # (Auto) (1.8-7.7) th/mm3 Lymph # (Auto) (1.0-4.8) th/mm3 Kleberg # (Auto) (0.0-0.9) th/mm3 Eos # (Auto) (0.0-0.4) th/mm3 Baso # (Auto) (0.0-0.2) th/mm3 WBC Differential Diff Scan Differential Comment Platelet Estimate (Normal) Platelet Morphology (Normal) PT (9.8-11.6) sec INR Ratio APTT (24.3-30.1) sec POC Sodium (137-144) mmol/L POC Potassium (3.6-5.0) mmol/L POC Chloride (102-111) mmol/L POC BUN (5-21) mg/dL POC Creatinine (0.6-1.3) mg/dL POC Glucose (68-110) mg/dL Ur Collection Type Clean catch Urine Color Yellow (Yellw/Straw) Urine Clarity Clear (Clear) Urine pH 5.5 (5.0-8.5) Ur Specific Gilman Greater/equal 1.030 (1.002-1.035) Urine Protein 100 H (Neg-Trace) mg/dL Urine Glucose (UA) Negative (Negative) mg/dL Urine Ketones 40 H (Negative) mg/dL Urine Occult Blood Trace (Negative) Urine Nitrate Positive H (Negative) Urine Bilirubin Negative (Negative) Urine Ictotest Negative (Negative) Urine Urobilinogen 1.0 (Less than 2) mg/dL Ur Leukocyte Esterase Negative (Negative) Urine RBC 0-3 (0-3) /hpf Urine WBC 0-5 (0-5) /hpf Ur Squamous Epith Cells 0-5 (0-5) /hpf Urine Bacteria Rare H (None) /hpf Micro UA Comment Culture indicated Ur Microscopic Review Microscopic reviewed Urine Culture Comments Culture indicated Imaging Data Radiologist's impression: Chest X-Ray 02/06/18 09:52 CONCLUSION: No acute cardiopulmonary findings. ECG Data EKG Prior to Arrival: No Attestation: I personally reviewed and interpreted this ECG as follows: Interpretation: ECG shows normal sinus rhythm at a rate of 63, no ST elevation or depression, normal intervals Discharge Plan Discharge Disposition Patient Disposition: 30 Still Patient Discharge Condition Condition: Stable Discharge Details Diagnosis: Acute UTI, Generalized weakness Physicians Team ED Provider: Ana María Knight Rxs /Orders / Referrals /Forms Prescriptions: No Action alprazolam [Xanax] 0.5 mg Tablet 0.5 mg PO BID PRN (Reason: Anxiety) RF: 0 propranolol 50 mg PO TID RF: 0 trazodone 50 mg PO HS PRN (Reason: INSOMNIA) RF: 0 lisinopril 10 mg Tablet 10 mg PO DAILY Qty: 0 RF: 0 Discharge Interventions Interventions: Vital Signs Last Done: 02/06/18 11:00 Status ED Status: With Doctor
--- NOTE | 2018-02-06 10:37 | XR ---
EXAM DATE: 02/06/2018 9:52 AM EDT AGE/SEX: 62 years / Male INDICATIONS: Cough. CLINICAL DATA: This is the patient's initial encounter. Patient reports that signs and symptoms have been present for 1 day and indicates a pain score of 0/10. MEDICAL/SURGICAL HISTORY: Hypertension. anxiety None. COMPARISON: HPO, CHEST SINGLE AP, 02/06/2017. . FINDINGS: A single AP view of the chest demonstrates the lungs to be symmetrically aerated without evidence of mass, infiltrate or effusion. The cardiomediastinal contours are unremarkable. Osseous structures a re intact. CONCLUSION: No acute cardiopulmonary findings. Electronically signed by: Willian Morris MD 02/06/2018 10:36 AM EDT
[2018-02-06 10:42] LABS: Baso # (Auto) 0.1 th/mm3 (0.0-0.2); Baso % (Auto) 1.3 % (0.0-2.0); Eos % (Auto) 0.8 % (0.0-4.0); Hematocrit 45.9 % (39.0-51.0); Hemoglobin 15.5 gm/dL (13.0-17.0); Lymph # (Auto) 0.5 th/mm3 (1.0-4.8); Lymph % (Auto) 9.8 % (9.0-44.0); Mean Corpuscular HGB Conc 33.8 % (32.0-36.0); Mean Corpuscular Volume 94.6 fL (80.0-100.0); Mono # (Auto) 0.4 th/mm3 (0.0-0.9); Mono % (Auto) 8.8 % (0.0-8.0); Neut # (Auto) 3.8 th/mm3 (1.8-7.7); Neut % (Auto) 79.3 % (16.0-70.0); Platelet Count 62 th/mm3 (150-450); Red Blood Count 4.86 mil/mm3 (4.50-5.90); Red Cell Distribution Width 12.1 % (11.6-17.2); White Blood Count 4.8 th/mm3 (4.0-11.0)
[2018-02-06 10:53] LABS: Activated Partial Thrombo Time 26.6 sec (24.3-30.1); INR 1.1 Ratio; Prothrombin Time 10.7 sec (9.8-11.6)
[2018-02-06 11:17] LABS: Platelet Morphology Normal (Normal)
[2018-02-06 11:41] LABS: Clarity,Urine Clear (Clear); Color,Urine Yellow (Yellw/Straw); Glucose,Urine (UA) Negative (Negative); Leukocyte Esterase,Urine Negative (Negative); Nitrite,Urine Positive (Negative); PH,Urine 5.5 (5.0-8.5); Specific Gravity,Urine Greater/Equal 1.030 (1.002-1.035)
[2018-02-06 11:47] LABS: Bilirubin,Urine Negative (Negative); Ictotest,Urine Negative (Negative)
[2018-02-06 11:49] LABS: Bacteria,Urine Rare /hpf; RBC,Urine 0-3 /hpf (0-3); Squamous Epithelial Cell,Urine 0-5 /hpf (0-5); WBC,Urine 0-5 /hpf (0-5)
[2018-02-06 12:23] LABS: Chloride 105 meq/L (98-107); Potassium 3.8 meq/L (3.5-5.1); Sodium 142 meq/L (136-145)
[2018-02-06 12:29] LABS: Calcium 8.5 mg/dL (8.5-10.1)
[2018-02-06 12:30] LABS: Albumin 3.7 g/dL (3.4-5.0); Anion Gap 10 meq/L (5-15); Blood Urea Nitrogen 10 mg/dL (7-18); Glucose,Random 145 mg/dL (74-106)
[2018-02-06 12:32] LABS: Alanine Aminotransferase 40 U/L (12-78); Aspartate Aminotransferase 78 U/L (15-37)
[2018-02-06 12:33] LABS: Glomerular Filtration Rate Greater Than 89 mL/min (>89)
[2018-02-06 12:34] LABS: Total Protein 7.4 g/dL (6.4-8.2)
[2018-02-06 12:35] LABS: Alkaline Phosphatase 81 U/L (45-117)
--- NOTE | 2018-02-06 12:53 | P.HPIM ---
History of Present Illness Primary Care Physician: Tomas Thurman History of Present Illness: Mr. Baker is a 8-year-old male. 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 He says he has been getting physical therapy at baseline and just as of yesterday he was maintaining and ability to participate in exercises. He does describe some lower abdominal pain. He comes in the hospital secondary to weakness. This morning he was unable to get out of a seated position. He is also experiencing tremors upper body. Screening shows that he has a urinary tract infection. Etiology for his tremor and weakness is likely related to urinary tract infection. Dehydration appears evident. Patient admits that he was not drinking as much liquids today because he was worried he would have to get up and go the bathroom and not be able to. No other complaints at this time. - Diagnosis (1) Dehydration (2) Acute UTI (3) Generalized weakness Review of Systems Constitutional: No fevers, no chills no night sweats, no fatigue, weakness Eyes: No eye pain, no blurry vision, no loss of vision ENT: No sore throat, no ear pain, no rhinorrhea Cardiovascular: No chest pain, no tachycardia, no palpitations, no shortness of breath, no syncope Respiratory: No wheezing, no cough, no shortness of breath Gastrointestinal: No abdominal pain, no black tarry stools, no bright red blood per rectum, no vomiting, no diarrhea Musculoskeletal: No joint pain, no muscle cramps, no stiffness Integumentary: No rash, no ulcers, no drainage Neurologic: No sensory loss, no loss of motor function, no dizziness, tremor Psychiatric: No behavioral changes, no hallucinations, no suicidal ideations [facility] - History History Provided By: Patient, Emission Technician / EMT - Medical History Medical History: Medical History (Last Reviewed 02/06/18 @ 10:32 by Ana María Knight MD) Chronic back pain Elevated cholesterol Heart palpitations Leg weakness, bilateral Anxiety Charcot Brianda Tooth muscular atrophy Hypertension Intermittent depression - Surgical History Surgical History: Surgical History (Last Reviewed 02/06/18 @ 10:32 by Ana María Knight MD) History of foot surgery History of major orthopedic surgery - Family History Family History: Family History (Last Reviewed 02/06/18 @ 10:32 by Ana María Knight MD) Father Emphysema lung Heart attack - Tobacco History Second Hand Smoke Exposure: No Tobacco Use In Past 30 Days: No Smoking Status: Former smoker Tobacco Type: Cigarettes - Alcohol History How Often Do You Have a Drink Containing Alcohol: 2 to 3 times a week - Substance Use History Substance History: No History of Abuse - Travel History Recent Travel in the [place] Within the Last 8 Weeks: No Recent Travel Out of the Country Within the Last 8 Weeks: No - Immunization History Tetanus Immunization: >5 Years Hx Influenza Vaccine This Season: No Medications and Allergies Active Medications: Active Medications Al Hydroxide/Mg Hydroxide (Milk Of Jude Rogers) 30 ml PO Q12H PRN PRN Reason: Mild Constipation Heparin Sodium (Porcine) (Heparin Inj) 5,000 units SQ Q12HR LUIS Sodium Chloride (Ns Inj) 1,000 mls @ 84 mls/hr IV.CONT .[id number] LUIS Lactobacillus Acidophilus (Lactinex) 1 tab PO TID LUIS Allergies Allergy/AdvReac Type Severity Reaction Status Date / Time No Known Allergies Allergy Verified 02/06/18 09:44 Home Medications Medication Instructions Recorded Confirmed Type alprazolam [Xanax] 0.5 mg PO BID PRN 01/09/18 01/09/18 History propranolol 50 mg PO TID 01/09/18 01/09/18 History trazodone 50 mg PO HS PRN 01/09/18 01/09/18 History Exam Vital signs: Vital Signs 02/06/18 09:37 02/06/18 11:00 Temperature 98.7 F Pulse Rate 67 69 Respiratory Rate 18 16 Blood Pressure 156/64 H 138/68 Pulse Oximetry 95 97 Intake & Output 02/05/18 02/06/18 02/06/18 18:59 06:59 18:59 Weight 80.5 kg Narrative: GENERAL: NAD, A&Ox3 HEAD: Normocephalic. NECK: Supple, trachea midline. No lymphadenopathy. EYES: No scleral icterus. No injection or drainage. CARDIOVASCULAR: Regular rate and rhythm without murmurs, gallops, or rubs. RESPIRATORY: Breath sounds equal bilaterally. No accessory muscle use. GASTROINTESTINAL: Abdomen soft, non-tender, nondistended. MUSCULOSKELETAL: No cyanosis, or edema. Bilateral lower extremity deformity and bilateral hand deformities. SKIN: Warm and dry. NEURO: No focal neurological deficits. Results - Labs CBC & Chem 7: 02/06/18 10:25 02/06/18 10:25 Labs: Short CBC 02/06/18 Range/Units 10:25 WBC 4.8 (4.0-11.0) th/mm3 Hgb 15.5 (13.0-17.0) gm/dL Hct 45.9 (39.0-51.0) % Plt Count 62 L D (150-450) th/mm3 BMP 02/06/18 10:25 Sodium 142 Potassium 3.8 Chloride 105 Carbon Dioxide 27.0 BUN 10 Creatinine 0.55 L Calcium 8.5 Cardiac Enzymes 02/06/18 Range/Units 10:25 Troponin I Less than 0.02 L (0.02-0.05) ng/mL Liver Function 02/06/18 Range/Units 10:25 Total Bilirubin 1.4 H (0.2-1.0) mg/dL AST 78 H (15-37) U/L ALT 40 (12-78) U/L Alkaline Phosphatase 81 (45-117) U/L Albumin 3.7 (3.4-5.0) g/dL Urine 02/06/18 Range/Units 11:38 Urine Color Yellow (Yellw/Straw) Urine Clarity Clear (Clear) Urine pH 5.5 (5.0-8.5) Ur Specific [place] Greater/equal 1.030 (1.002-1.035) Urine Protein 100 H (Neg-Trace) mg/dL Urine Glucose (UA) Negative (Negative) mg/dL - Imaging Impressions Chest X-Ray 02/06/18 09:52 CONCLUSION: No acute cardiopulmonary findings. Caprini VTE Risk Assessment Caprini VTE Risk Assessment: Moderate/High Risk (score >= 2) Caprini Risk Assessment Model: Point Value = 1 Point Value = 2 Point Value = 3 Point Value = 5 Age 41-60 Minor surgery BMI > 25 kg/m2 Swollen legs Varicose veins or History of unexplained or recurrent spontaneous Oral contraceptives or hormone replacement Sepsis (< 1 month) Serious lung disease, including pneumonia (< 1 month) Abnormal pulmonary function Acute myocardial infarction Congestive heart failure (< 1 month) History of inflammatory bowel disease Medical patient at bed rest Age 61-74 Arthroscopic surgery Major open surgery (> 45 min) Laparoscopic surgery (> 45 min) Malignancy Confined to bed (> 72 hours) Immobilizing plaster cast Central venous access Age >= 75 History of VTE Family history of VTE Factor V Leiden Prothrombin [id number] Lupus anticoagulant Anticardiolipin antibodies Elevated serum homocysteine Heparin-induced thrombocytopenia Other congenital or acquired thrombophilia Stroke (< 1 month) Elective arthroplasty Hip, pelvis, or leg fracture Acute spinal cord injury (< 1 month) Prophylaxis Regimen: Total Risk Factor Score Risk Level Prophylaxis Regimen 0-1 Low Early ambulation 2 Moderate Order ONE of the following: *Sequential Compression Device (SCD) *Heparin 5000 units SQ BID 3-4 Higher Order ONE of the following medications: *Heparin 5000 units SQ TID *Enoxaparin/Lovenox 40 mg SQ daily (WT < 150 kg, CrCl > 30 mL/min) *Enoxaparin/Lovenox 30 mg SQ daily (WT < 150 kg, CrCl > 10-29 mL/min) *Enoxaparin/Lovenox 30 mg SQ BID (WT < 150 kg, CrCl > 30 mL/min) AND/OR *Sequential Compression Device (SCD) 5 or more Highest Order ONE of the following medications: *Heparin 5000 units SQ TID (Preferred with Epidurals) *Enoxaparin/Lovenox 40 mg SQ daily (WT < 150 kg, CrCl > 30 mL/min) *Enoxaparin/Lovenox 30 mg SQ daily (WT < 150 kg, CrCl > 10-29 mL/min) *Enoxaparin/Lovenox 30 mg SQ BID (WT < 150 kg, CrCl > 30 mL/min) AND *Sequential Compression Device (SCD) Assessment and Plan - Assessment (1) Dehydration Code(s): E86.0 - Dehydration Status: Acute (2) Acute UTI Code(s): N39.0 - Urinary tract infection, site not specified Status: Acute (3) Generalized weakness Code(s): R53.1 - Weakness Status: Acute - Plan 62-year-old male admitted secondary to acute urinary tract infection with generalized weakness and dehydration Acute urinary tract infection Rocephin Probiotics Follow culture Dehydration IV hydration Follow renal function Generalized weakness Tremors This is likely related to urinary tract infection Treat infection as above Physical therapy Monitor for improvement Hyperlipidemia Continue present treatment Follow as an outpatient Hypertension Continue baseline treatment Follow blood pressures Adjust treatments as needed Depression Continue baseline treatments Xvglfnu-Zasig-Hcusq syndrome/deformity Physical therapy Supportive care DVT prophylaxis Heparin
[2018-02-06] MEDS: Sod Chloride 0.9% Inj 1,000 ML IV.CONT SCH (13:10)
[2018-02-06] MEDS ORDERED: Heparin - SQ 10,000 UNITS/ML Vial SQ SCH (21:00)
--- NOTE | 2018-02-06 22:03 | ECG ---
Date Performed: 02/06/2018 Time Performed: 10:00:14 PTAGE: 62 years EKG: Sinus rhythm BORDERLINE LEFT AXIS DEVIATION POSSIBLE RIGHT VENTRICULAR CONDUCTION DELAY BORDERLINE ECG PREVIOUS TRACING : 02/06/2017 03.22 Since the previous tracing, no significant change noted DOCTOR: Rose Marie Sethi Interpretating Date/Time 02/06/2018 22:02:34
[2018-02-06] MEDS ORDERED: traZODone 50 MG Tablet PO PRN (23:30)
[2018-02-07] MEDS: Sod Chloride 0.9% Inj 1,000 ML IV.CONT SCH (04:18)
[2018-02-07 06:20] LABS: Baso % (Auto) 0.5 % (0.0-2.0); Eos # (Auto) 0.1 th/mm3 (0.0-0.4); Eos % (Auto) 1.3 % (0.0-4.0); Hematocrit 41.4 % (39.0-51.0); Hemoglobin 14.1 gm/dL (13.0-17.0); Lymph # (Auto) 0.9 th/mm3 (1.0-4.8); Lymph % (Auto) 17.3 % (9.0-44.0); Mean Corpuscular HGB Conc 34.2 % (32.0-36.0); Mean Corpuscular Hemoglobin 31.8 pg (27.0-34.0); Mean Corpuscular Volume 92.9 fL (80.0-100.0); Mean Platelet Volume 8.4 fL (7.0-11.0); Mono # (Auto) 0.5 th/mm3 (0.0-0.9); Mono % (Auto) 10.4 % (0.0-8.0); Neut # (Auto) 3.5 th/mm3 (1.8-7.7); Neut % (Auto) 70.5 % (16.0-70.0); Platelet Count 55 th/mm3 (150-450); Red Blood Count 4.45 mil/mm3 (4.50-5.90); Red Cell Distribution Width 12.3 % (11.6-17.2)
[2018-02-07 06:26] LABS: Chloride 106 meq/L (98-107); Potassium 3.3 meq/L (3.5-5.1); Sodium 141 meq/L (136-145)
[2018-02-07 06:31] LABS: Calcium 7.8 mg/dL (8.5-10.1)
[2018-02-07 06:32] LABS: Albumin 3.2 g/dL (3.4-5.0); Anion Gap 11 meq/L (5-15); Blood Urea Nitrogen 11 mg/dL (7-18); Carbon Dioxide 24.3 meq/L (21.0-32.0); Glucose,Random 103 mg/dL (74-106)
[2018-02-07 06:35] LABS: Alanine Aminotransferase 32 U/L (12-78); Aspartate Aminotransferase 50 U/L (15-37); Glomerular Filtration Rate Greater Than 89 mL/min (>89)
[2018-02-07 06:36] LABS: Total Protein 6.3 g/dL (6.4-8.2)
[2018-02-07 06:38] LABS: Alkaline Phosphatase 53 U/L (45-117)
[2018-02-07 06:57] LABS: Platelet Morphology Normal (Normal)
[2018-02-07] MEDS ORDERED: ALPRAZolam 0.5 MG Tablet PO PRN (09:27)
[2018-02-07] MEDS: Lactobacillus Acidophilus/L. Spores Tablet PO SCH ×3 (10:05→17:03)
[2018-02-07] MEDS ORDERED: ALPRAZolam 0.25 MG Tablet PO PRN (10:25)
--- NOTE | 2018-02-07 12:04 | P.PNIM ---
Subjective Interval history: Weakness remains. No new complaints from patient. He is being compliant with physical therapy and occupational therapy. Physical Exam Vital signs: Vital Signs 02/06/18 13:20 02/06/18 15:00 02/06/18 20:00 Temperature 98 F 99.3 F Pulse Rate 66 62 60 Respiratory Rate 16 20 18 Blood Pressure 145/48 H 136/59 L 120/58 L Pulse Oximetry 97 96 02/07/18 00:00 02/07/18 08:00 Temperature 98.1 F 98.3 F Pulse Rate 57 L 66 Respiratory Rate 18 18 Blood Pressure 136/86 121/83 Pulse Oximetry 95 96 Intake & Output 02/06/18 02/07/18 02/07/18 18:59 06:59 18:59 Intake Total 459 / 459 761 / 761 1000 / 1000 Output Total 100 / 100 Balance 359 / 359 761 / 761 1000 / 1000 Weight 85.5 kg 85.7 kg Intake: IV 459 / 459 641 / 641 1000 / 1000 NS Inj 1,000 ML @ 84 mls/hr IV. 359 / 359 641 / 641 900 / 900 CONT .[id number] LUIS Rx#: [id number] Rocephin Inj 1,000 MG In NS Inj 100 / 100 100 / 100 100 ML @ 200 mls/hr IV.SIG Q24H LUIS Rx#:[id number] Oral 120 / 120 Output: Urine 100 / 100 Other: # Voids 2 Date of Last Bowel Movement 02/06/18 # Bowel Movements 1 Weight On Admission 85.5 kg Narrative: GENERAL: NAD, A&Ox3, systemic tremor HEAD: Normocephalic. NECK: Supple, trachea midline. No lymphadenopathy. EYES: No scleral icterus. No injection or drainage. CARDIOVASCULAR: Regular rate and rhythm without murmurs, gallops, or rubs. RESPIRATORY: Breath sounds equal bilaterally. No accessory muscle use. GASTROINTESTINAL: Abdomen soft, non-tender, nondistended. MUSCULOSKELETAL: No cyanosis, or edema. Deformity of bilateral lower extremities and bilateral hands. SKIN: Warm and dry. NEURO: No focal neurological deficits. Results - Labs CBC & Chem 7: 02/07/18 05:10 02/07/18 05:10 Laboratory Results - last 24 hr 02/06/18 02/07/18 02/07/18 10:25 05:10 05:10 CBC w Diff Slide review pending WBC 5.0 RBC 4.45 L Hgb 14.1 Hct 41.4 MCV 92.9 MCH 31.8 MCHC 34.2 RDW 12.3 Plt Count 55 L MPV 8.4 Neut % (Auto) 70.5 H Lymph % (Auto) 17.3 [place] % (Auto) 10.4 H Eos % (Auto) 1.3 Baso % (Auto) 0.5 Neut # (Auto) 3.5 Lymph # (Auto) 0.9 L [place] # (Auto) 0.5 Eos # (Auto) 0.1 Baso # (Auto) 0.0 WBC Differential . Diff Scan Auto diff confirmed Differential Comment . Platelet Estimate Low L Platelet Morphology Normal Sodium 142 141 Potassium 3.8 3.3 L Chloride 105 106 Carbon Dioxide 27.0 24.3 Anion Gap 10 11 BUN 10 11 Creatinine 0.55 L 0.49 L Estimated GFR Greater than 89 Greater than 89 Random Glucose 145 H 103 Calcium 8.5 7.8 L Total Bilirubin 1.4 H 1.6 H AST 78 H 50 H ALT 40 32 Alkaline Phosphatase 81 53 Troponin I Less than 0.02 L Total Protein 7.4 6.3 L D Albumin 3.7 3.2 L Microbiology 02/06/18 11:38 Clean Catch Urine Urine Culture - Final 10-50,000 cfu/mL mixed gram positive sulma (probable contaminants) Assessment and Plan - Assessment (1) Dehydration Code(s): E86.0 - Dehydration Status: Acute (2) Acute UTI Code(s): N39.0 - Urinary tract infection, site not specified Status: Acute (3) Generalized weakness Code(s): R53.1 - Weakness Status: Acute - Plan 62-year-old male admitted secondary to acute urinary tract infection with generalized weakness and dehydration No significant improvement in weakness yet. Continue to work with physical therapy. Continue occupational therapy. To need to treat infection. Acute urinary tract infection Rocephin Probiotics Follow culture Dehydration IV hydration Follow renal function Generalized weakness Tremors This is likely related to urinary tract infection Treat infection as above Physical therapy Occupational therapy Monitor for improvement Hyperlipidemia Continue present treatment Follow as an outpatient Hypertension Continue baseline treatment Follow blood pressures Adjust treatments as needed Depression Continue baseline treatments Rkksrwv-Kvtut-Swrzj syndrome/deformity Physical therapy Supportive care DVT prophylaxis Chemical anticoagulation contraindicated due to thrombocytopenia SCDs contraindicated secondary to Huuifsw-Umboj-Irdwy feet bilaterally
[2018-02-07] MEDS: Propranolol 40 MG Tablet PO SCH ×2 (13:39→17:03)
--- NOTE | 2018-02-07 15:03 | P.DCO ---
- Physical Therapy Order: Evaluate and treat, Improve ambulation, Strength and gait training - Occupational Therapy Order: Evaluate and treat, Improve ADL, Gross motor coordination - Home Health Nursing Order: Medical education, Signs/symptoms of disease process, Medication education-adverse effect - Home Health Aide Order: To assist in: Bathing and personal care, work distributor and meal prep - Manager Budget Order: To evaluate: Living conditions/environment, Support services Order: To provide: Long range planning, Community services - Case Management Consult No - Certification I have seen patient Cortes Baker on 02/07/18. My clinical findings support the need for the requested home health care services because: Deconditioned with increased weakness I certify that my clinical findings support that this patient is homebound because: Unsteady gait/balance, Unsafe to leave home unassisted
[2018-02-07] MEDS ORDERED: LORazepam 1 MG Tablet PO PRN (20:26)
[2018-02-07] MEDS: Haloperidol Inj 5 MG/ML Ampul IV.PUSH PRN ×3 (23:01→23:29)
[2018-02-07] MEDS ORDERED: MethylPREDNISolone Sod Succinate Inj 125 MG/2 ML Vial IV.PUSH ONE (23:45)
[2018-02-08 00:20] LABS: ABG Base Excess -0.1 mmol/L (-2-2); ABG PCO2 46 mmHg (38-42); ABG PO2 78 mmHg (61-120)
[2018-02-08] MEDS ORDERED: RANITIDINE 50 MG/2 ML IV.SIG ONE (00:30)
[2018-02-08 01:02] LABS: Baso % (Auto) 0.4 % (0.0-2.0); Eos # (Auto) 0.2 th/mm3 (0.0-0.4); Eos % (Auto) 2.3 % (0.0-4.0); Hematocrit 46.3 % (39.0-51.0); Hemoglobin 15.8 gm/dL (13.0-17.0); Lymph # (Auto) 1.2 th/mm3 (1.0-4.8); Lymph % (Auto) 17.7 % (9.0-44.0); Mean Corpuscular HGB Conc 34.1 % (32.0-36.0); Mean Corpuscular Volume 93.9 fL (80.0-100.0); Mean Platelet Volume 8.3 fL (7.0-11.0); Mono # (Auto) 0.8 th/mm3 (0.0-0.9); Mono % (Auto) 10.9 % (0.0-8.0); Neut # (Auto) 4.8 th/mm3 (1.8-7.7); Neut % (Auto) 68.7 % (16.0-70.0); Platelet Count 72 th/mm3 (150-450); Red Blood Count 4.93 mil/mm3 (4.50-5.90); Red Cell Distribution Width 12.7 % (11.6-17.2); White Blood Count 6.9 th/mm3 (4.0-11.0)
[2018-02-08 01:09] LABS: Chloride 113 meq/L (98-107); Potassium 3.1 meq/L (3.5-5.1); Sodium 146 meq/L (136-145)
[2018-02-08 01:12] LABS: Prothrombin Time 10.4 sec (9.8-11.6)
[2018-02-08] MEDS ORDERED: Mag Sulf 1 gm/100 ml Premix 100 ML IV.SIG ONE ×2 (01:29→03:20)
[2018-02-08] MEDS: Potassium Chlor 20 mEq Premix 20 MEQ/100 ML PIGGYBACK IV.SIG SCH ×2 (01:42→03:36)
[2018-02-08 01:45] LABS: Anion Gap 9 meq/L (5-15); Blood Urea Nitrogen 10 mg/dL (7-18); Calcium 6.7 mg/dL (8.5-10.1); Carbon Dioxide 24.2 meq/L (21.0-32.0); Glomerular Filtration Rate Greater Than 89 mL/min (>89); Glucose,Random 88 mg/dL (74-106)
[2018-02-08 01:58] LABS: Platelet Morphology Normal (Normal)
[2018-02-08 02:53] LABS: Total Protein 5.9 g/dL (6.4-8.2)
[2018-02-08] MEDS ORDERED: CALCIUM GLUCONATE IV.SIG ONE ×2 (03:19)
[2018-02-08] MEDS ORDERED: DEXTROSE 5% IV.SIG ONE ×2 (03:19)
[2018-02-08] MEDS ORDERED: WATER IV.SIG ONE ×2 (03:19)
[2018-02-08 07:54] LABS: Baso # (Auto) 0.1 th/mm3 (0.0-0.2); Baso % (Auto) 1.9 % (0.0-2.0); Eos % (Auto) 0.1 % (0.0-4.0); Hematocrit 43.2 % (39.0-51.0); Hemoglobin 14.8 gm/dL (13.0-17.0); Lymph # (Auto) 0.5 th/mm3 (1.0-4.8); Lymph % (Auto) 10.6 % (9.0-44.0); Mean Corpuscular HGB Conc 34.2 % (32.0-36.0); Mean Corpuscular Hemoglobin 32.7 pg (27.0-34.0); Mean Corpuscular Volume 95.7 fL (80.0-100.0); Mean Platelet Volume 7.4 fL (7.0-11.0); Mono # (Auto) 0.1 th/mm3 (0.0-0.9); Mono % (Auto) 2.2 % (0.0-8.0); Neut % (Auto) 85.2 % (16.0-70.0); Platelet Count 65 th/mm3 (150-450); Red Blood Count 4.52 mil/mm3 (4.50-5.90); Red Cell Distribution Width 12.1 % (11.6-17.2); White Blood Count 4.7 th/mm3 (4.0-11.0)
[2018-02-08 08:24] LABS: Alanine Aminotransferase 58 U/L (12-78); Albumin 3.3 g/dL (3.4-5.0); Alkaline Phosphatase 71 U/L (45-117); Anion Gap 10 meq/L (5-15); Aspartate Aminotransferase 132 U/L (15-37); Blood Urea Nitrogen 10 mg/dL (7-18); Calcium 8.6 mg/dL (8.5-10.1); Carbon Dioxide 25.4 meq/L (21.0-32.0); Chloride 104 meq/L (98-107); Glomerular Filtration Rate Greater Than 89 mL/min (>89); Glucose,Random 152 mg/dL (74-106); Potassium 4.4 meq/L (3.5-5.1); Sodium 139 meq/L (136-145); Total Protein 6.8 g/dL (6.4-8.2)
[2018-02-08] MEDS ORDERED: Lisinopril 10 MG Tablet PO SCH (09:00)
[2018-02-08 09:30] LABS: Platelet Morphology Normal (Normal)
--- NOTE | 2018-02-08 09:33 | ECG ---
Date Performed: 02/08/2018 Time Performed: 00:28:04 PTAGE: 62 years EKG: Sinus rhythm BORDERLINE LEFT AXIS DEVIATION INCOMPLETE RIGHT BUNDLE BRANCH BLOCK BORDERLINE ECG Compared to prior electrocardiogram, rate has increased . DOCTOR: Tru Arnold Interpretating Date/Time 02/08/2018 09:32:34
--- NOTE | 2018-02-08 09:37 | P.PNIM ---
Subjective Interval history: Overnight patient had an episode of confusion and an ABG showed mild acidosis. No hypoxia on ABG. Acidosis may be metabolic. Confusion may be related to UTI. Physical Exam Vital signs: Vital Signs 02/07/18 12:00 02/07/18 16:00 02/07/18 20:00 Temperature 97.0 F L 98.9 F 99.8 F H Pulse Rate 75 66 64 Respiratory Rate 18 18 16 Blood Pressure 131/79 141/65 H 161/77 H Pulse Oximetry 96 95 95 02/07/18 23:30 02/08/18 00:19 02/08/18 00:20 Temperature 100.2 F H Pulse Rate 90 Respiratory Rate 19 Blood Pressure 126/85 Pulse Oximetry 95 96 95 02/08/18 00:36 02/08/18 00:52 02/08/18 01:00 Temperature Pulse Rate 86 74 Respiratory Rate 38 H 20 22 Blood Pressure 96/70 L 97/58 L Pulse Oximetry 92 L 94 L 02/08/18 01:14 02/08/18 02:23 02/08/18 02:39 Temperature Pulse Rate 74 86 92 H Respiratory Rate 18 34 H 28 H Blood Pressure 91/54 L 132/64 136/76 Pulse Oximetry 95 100 99 02/08/18 03:00 02/08/18 03:14 02/08/18 04:14 Temperature 98.7 F Pulse Rate 88 80 84 Respiratory Rate 31 H 20 16 Blood Pressure 109/64 116/66 Pulse Oximetry 98 99 100 02/08/18 04:28 02/08/18 05:14 02/08/18 06:14 Temperature Pulse Rate 88 84 Respiratory Rate 22 24 Blood Pressure 116/77 119/73 Pulse Oximetry 100 98 100 02/08/18 08:00 Temperature 97.9 F Pulse Rate Respiratory Rate Blood Pressure Pulse Oximetry Intake & Output 02/07/18 02/08/18 02/08/18 18:59 06:59 18:59 Intake Total 1640 / 1640 100 / 100 905 / 905 Output Total 400 / 400 Balance 1240 / 1240 100 / 100 905 / 905 Weight 80.7 kg Intake: IV 1000 / 1000 100 / 100 305 / 305 NS Inj 1,000 ML @ 84 mls/hr IV. 900 / 900 CONT .[id number] [facility] Rx#: [id number] Calcium Gluconate Inj 0.5 GM In 105 / 105 D5W Inj 100 ML @ 110 mls/hr IV .SIG ONCE ONE Rx#:[id number] Magnesium Sulfate 1 gm/D5W 100 100 / 100 ml Premix 100 ML @ 100 mls/hr IV.SIG ONCE ONE Rx#:[id number] KCl 20 mEq Premix Inj 20 meq In 100 / 100 100 / 100 100 ml @ 50 mls/hr IV.SIG Q2H LUIS Rx#:[id number] Rocephin Inj 1,000 MG In NS Inj 100 / 100 100 ML @ 200 mls/hr IV.SIG Q24H LUIS Rx#:[id number] Oral 640 / 640 600 / 600 Output: Urine 400 / 400 Other: # Voids 4 Date of Last Bowel Movement 02/06/18 02/06/18 # Bowel Movements 2 0 Narrative: GENERAL: NAD, A&Ox3, systemic tremor HEAD: Normocephalic. NECK: Supple, trachea midline. No lymphadenopathy. EYES: No scleral icterus. No injection or drainage. CARDIOVASCULAR: Regular rate and rhythm without murmurs, gallops, or rubs. RESPIRATORY: Breath sounds equal bilaterally. No accessory muscle use. GASTROINTESTINAL: Abdomen soft, non-tender, nondistended. MUSCULOSKELETAL: No cyanosis, or edema. Deformity of bilateral lower extremities and bilateral hands. SKIN: Warm and dry. NEURO: No focal neurological deficits. Results - Labs CBC & Chem 7: 02/08/18 07:35 02/08/18 07:35 Laboratory Results - last 24 hr 02/07/18 02/07/18 02/07/18 23:50 23:50 23:50 CBC w Diff Slide review pending WBC 6.9 RBC 4.93 Hgb 15.8 Hct 46.3 MCV 93.9 MCH 32.0 MCHC 34.1 RDW 12.7 Plt Count 72 L D MPV 8.3 Neut % (Auto) 68.7 Lymph % (Auto) 17.7 [place] % (Auto) 10.9 H Eos % (Auto) 2.3 Baso % (Auto) 0.4 Neut # (Auto) 4.8 Lymph # (Auto) 1.2 [place] # (Auto) 0.8 Eos # (Auto) 0.2 Baso # (Auto) 0.0 WBC Differential . Diff Scan Auto diff confirmed Differential Comment . Platelet Estimate Low L Platelet Morphology Normal PT 10.4 INR 1.0 Puncture Site Patient Temperature O2 Saturation ABG pH ABG pCO2 ABG pO2 ABG HCO3 ABG O2 Content ABG Base Excess ABG Methemoglobin [place] Test Hemoglobin Carboxyhemoglobin O2 Delivery Device Liter Flow Critical Value Sodium 146 H Potassium 3.1 L Chloride 113 H Carbon Dioxide 24.2 Anion Gap 9 BUN 10 Creatinine 0.45 L Estimated GFR Greater than 89 POC Glucose Random Glucose 88 Lactic Acid Calcium 6.7 L* D Prot Corrected Calcium 7.3 L* Magnesium Total Bilirubin AST ALT Alkaline Phosphatase Ammonia Total Protein 5.9 L Albumin Nasal Screen MRSA (PCR) 02/07/18 02/08/18 02/08/18 23:52 00:05 01:00 CBC w Diff WBC RBC Hgb Hct MCV MCH MCHC RDW Plt Count MPV Neut % (Auto) Lymph % (Auto) [place] % (Auto) Eos % (Auto) Baso % (Auto) Neut # (Auto) Lymph # (Auto) [place] # (Auto) Eos # (Auto) Baso # (Auto) WBC Differential Diff Scan Differential Comment Platelet Estimate Platelet Morphology PT INR Puncture Site Left radial Patient Temperature 98.6 O2 Saturation 93 ABG pH 7.35 L ABG pCO2 46 H ABG pO2 78 ABG HCO3 25 ABG O2 Content 20.1 H ABG Base Excess -0.1 ABG Methemoglobin 0.6 [place] Test Present Hemoglobin 15.3 Carboxyhemoglobin 1.5 O2 Delivery Device Nasal cannula Liter Flow 6.00 Critical Value Yes Sodium Potassium Chloride Carbon Dioxide Anion Gap BUN Creatinine Estimated GFR POC Glucose 112 H Random Glucose Lactic Acid Calcium Prot Corrected Calcium Magnesium Total Bilirubin AST ALT Alkaline Phosphatase Ammonia 28 Total Protein Albumin Nasal Screen MRSA (PCR) 02/08/18 02/08/18 02/08/18 01:00 01:34 02:30 CBC w Diff WBC RBC Hgb Hct MCV MCH MCHC RDW Plt Count MPV Neut % (Auto) Lymph % (Auto) [place] % (Auto) Eos % (Auto) Baso % (Auto) Neut # (Auto) Lymph # (Auto) [place] # (Auto) Eos # (Auto) Baso # (Auto) WBC Differential Diff Scan Differential Comment Platelet Estimate Platelet Morphology PT INR Puncture Site Patient Temperature O2 Saturation ABG pH ABG pCO2 ABG pO2 ABG HCO3 ABG O2 Content ABG Base Excess ABG Methemoglobin [place] Test Hemoglobin Carboxyhemoglobin O2 Delivery Device Liter Flow Critical Value Sodium Potassium Chloride Carbon Dioxide Anion Gap BUN Creatinine Estimated GFR POC Glucose Random Glucose Lactic Acid 1.2 Calcium Prot Corrected Calcium Magnesium 1.2 L Total Bilirubin AST ALT Alkaline Phosphatase Ammonia Total Protein Albumin Nasal Screen MRSA (PCR) Not detected 02/08/18 02/08/18 07:35 07:35 CBC w Diff Slide review pending WBC 4.7 RBC 4.52 Hgb 14.8 Hct 43.2 MCV 95.7 MCH 32.7 MCHC 34.2 RDW 12.1 Plt Count 65 L MPV 7.4 Neut % (Auto) 85.2 H Lymph % (Auto) 10.6 [place] % (Auto) 2.2 Eos % (Auto) 0.1 Baso % (Auto) 1.9 Neut # (Auto) 4.0 Lymph # (Auto) 0.5 L [place] # (Auto) 0.1 Eos # (Auto) 0.0 Baso # (Auto) 0.1 WBC Differential . Diff Scan Auto diff confirmed Differential Comment . Platelet Estimate Low L Platelet Morphology Normal PT INR Puncture Site Patient Temperature O2 Saturation ABG pH ABG pCO2 ABG pO2 ABG HCO3 ABG O2 Content ABG Base Excess ABG Methemoglobin [place] Test Hemoglobin Carboxyhemoglobin O2 Delivery Device Liter Flow Critical Value Sodium 139 Potassium 4.4 D Chloride 104 D Carbon Dioxide 25.4 Anion Gap 10 BUN 10 Creatinine 0.61 Estimated GFR Greater than 89 POC Glucose Random Glucose 152 H Lactic Acid Calcium 8.6 D Prot Corrected Calcium Magnesium Total Bilirubin 0.9 AST 132 H ALT 58 Alkaline Phosphatase 71 Ammonia Total Protein 6.8 D Albumin 3.3 L Nasal Screen MRSA (PCR) Microbiology 02/06/18 11:38 Clean Catch Urine Urine Culture - Final 10-50,000 cfu/mL mixed gram positive sulma (probable contaminants) Assessment and Plan - Assessment (1) Lumbar stenosis Code(s): M48.061 - Spinal stenosis, lumbar region without neurogenic claudication Status: Acute (2) Generalized weakness Code(s): R53.1 - Weakness Status: Acute - Plan 62-year-old male admitted secondary to acute urinary tract infection with generalized weakness and dehydration Continue physical therapy. Monitor for recurrence of confusion. Monitor urine cultures. Metabolic encephalopathy Related to UTI Continue antibiotic treatments Monitor for resolution Acute urinary tract infection Rocephin Probiotics Follow culture Dehydration IV hydration Follow renal function Generalized weakness Tremors This is likely related to urinary tract infection Treat infection as above Physical therapy Occupational therapy Monitor for improvement Hyperlipidemia Continue present treatment Follow as an outpatient Hypertension Continue baseline treatment Follow blood pressures Adjust treatments as needed Depression Continue baseline treatments Qyrmroc-Bfgll-Wbmka syndrome/deformity Physical therapy Supportive care DVT prophylaxis Chemical anticoagulation contraindicated due to thrombocytopenia SCDs contraindicated secondary to Tlnljzp-Gpwqr-Oyvba feet bilaterally
[2018-02-08 10:03] LABS: Magnesium 1.9 mg/dL (1.5-2.5)
[2018-02-08] MEDS: Lactobacillus Acidophilus/L. Spores Tablet PO SCH ×3 (11:32→20:54)
[2018-02-08] MEDS: Propranolol 40 MG Tablet PO SCH ×3 (11:33→20:54)
[2018-02-09] MEDS ORDERED: Chlorhexidine Gluconate 2% 1 Pack (2 Cloths) TOPICAL PRN ×2 (04:00)
[2018-02-09] MEDS ORDERED: Chlorhexidine Gluconate 2% 1 Pack (2 Cloths) TOPICAL SCH (04:00)
[2018-02-09] MEDS: Chlorhexidine Gluconate 2% 1 Pack (2 Cloths) TOPICAL SCH (06:20)
[2018-02-09] MEDS: Lactobacillus Acidophilus/L. Spores Tablet PO SCH ×4 (07:45→17:18)
[2018-02-09] MEDS: Propranolol 40 MG Tablet PO SCH ×4 (07:45→17:18)
--- NOTE | 2018-02-09 11:18 | P.PNIM ---
Subjective Interval history: No recurrence of confusion in the last 24 hours. Patient interviewed further about his alcohol habits and he does admit to drinking heavily and was drinking heavily the week prior to this admission. Heavy drinking could be contributory to his confusion episode as this could represent delirium tremens in addition to metabolic encephalopathy. Physical Exam Vital signs: Vital Signs 02/08/18 12:00 02/08/18 12:14 02/08/18 13:14 Temperature 97.7 F Pulse Rate 88 74 Respiratory Rate 31 H 19 Blood Pressure 104/70 106/59 L Pulse Oximetry 99 100 02/08/18 14:14 02/08/18 16:00 02/08/18 16:14 Temperature 97.7 F Pulse Rate 62 64 66 Respiratory Rate 17 25 H 24 Blood Pressure 125/61 125/62 117/63 Pulse Oximetry 98 100 100 02/08/18 17:00 02/08/18 17:14 02/08/18 18:00 Temperature Pulse Rate 78 66 62 Respiratory Rate 36 H 24 22 Blood Pressure 110/64 Pulse Oximetry 77 L 100 100 02/08/18 18:14 02/08/18 19:00 02/08/18 19:14 Temperature Pulse Rate 70 62 58 L Respiratory Rate 23 24 19 Blood Pressure 104/61 110/54 L Pulse Oximetry 99 99 99 02/08/18 20:00 02/08/18 20:10 02/08/18 20:14 Temperature 98.2 F Pulse Rate 62 64 62 Respiratory Rate 30 H 25 H 24 Blood Pressure 125/71 125/71 122/65 Pulse Oximetry 97 02/08/18 21:00 02/08/18 21:07 02/08/18 21:14 Temperature Pulse Rate 66 60 Respiratory Rate 24 30 H Blood Pressure 119/63 Pulse Oximetry 98 95 02/08/18 22:00 02/08/18 22:14 02/08/18 23:00 Temperature Pulse Rate 56 L 70 58 L Respiratory Rate 20 25 H 17 Blood Pressure 147/86 H 106/60 Pulse Oximetry 96 96 93 L 02/08/18 23:14 02/09/18 00:00 02/09/18 00:10 Temperature 98.0 F Pulse Rate 56 L 58 L 50 L Respiratory Rate 19 14 16 Blood Pressure 106/60 127/58 L 127/58 L Pulse Oximetry 93 L 95 96 02/09/18 00:14 02/09/18 01:00 02/09/18 02:00 Temperature Pulse Rate 52 L 54 L 56 L Respiratory Rate 17 18 17 Blood Pressure 128/67 141/67 H Pulse Oximetry 95 94 L 94 L 02/09/18 03:14 02/09/18 04:00 02/09/18 04:14 Temperature 98.6 F 97.6 F Pulse Rate 58 L 55 L 58 L Respiratory Rate 25 H 18 18 Blood Pressure 137/76 139/66 139/66 Pulse Oximetry 96 94 L 96 02/09/18 05:00 02/09/18 06:00 02/09/18 07:00 Temperature 98.5 F Pulse Rate 90 67 74 Respiratory Rate 24 18 36 H Blood Pressure 145/73 H 165/81 H 151/73 H Pulse Oximetry 96 93 L 95 02/09/18 07:19 02/09/18 08:00 02/09/18 08:01 Temperature 97.6 F Pulse Rate 64 62 64 Respiratory Rate 31 H 28 H 27 H Blood Pressure 148/68 H 143/70 H 141/68 H Pulse Oximetry 95 94 L 93 L 02/09/18 09:00 02/09/18 10:00 Temperature Pulse Rate 68 72 Respiratory Rate 29 H 32 H Blood Pressure 124/67 138/82 Pulse Oximetry 93 L 93 L Intake & Output 02/08/18 02/09/18 02/09/18 18:59 06:59 18:59 Intake Total 1963 / 1965 240 / 240 Output Total 770 / 770 300 / 300 1 / 1 Balance 1195 / 1195 -300 / -300 239 / 239 Weight 85.1 kg Intake: IV 405 / 405 Calcium Gluconate Inj 0.5 GM In 105 / 105 D5W Inj 100 ML @ 110 mls/hr IV .SIG ONCE ONE Rx#:[id number] Magnesium Sulfate 1 gm/D5W 100 100 / 100 ml Premix 100 ML @ 100 mls/hr IV.SIG ONCE ONE Rx#:[id number] KCl 20 mEq Premix Inj 20 meq In 100 / 100 100 ml @ 50 mls/hr IV.SIG Q2H [facility] Rx#:[id number] Rocephin Inj 1,000 MG In NS Inj 100 / 100 100 ML @ 200 mls/hr IV.SIG Q24H [facility] Rx#:[id number] Oral 1560 / 1560 240 / 240 Output: Urine 770 / 770 300 / 300 Stool Other: # Voids 3 Date of Last Bowel Movement 02/08/18 02/09/18 # Bowel Movements 1 Narrative: GENERAL: NAD, A&Ox3, systemic tremor HEAD: Normocephalic. NECK: Supple, trachea midline. No lymphadenopathy. EYES: No scleral icterus. No injection or drainage. CARDIOVASCULAR: Regular rate and rhythm without murmurs, gallops, or rubs. RESPIRATORY: Breath sounds equal bilaterally. No accessory muscle use. GASTROINTESTINAL: Abdomen soft, non-tender, nondistended. MUSCULOSKELETAL: No cyanosis, or edema. Deformity of bilateral lower extremities and bilateral hands. SKIN: Warm and dry. NEURO: No focal neurological deficits. Results - Labs CBC & Chem 7: 02/08/18 07:35 02/08/18 07:35 Microbiology 02/08/18 02:20 Blood - Peripheral Aerobic Blood Culture - Preliminary No growth in 1 day 02/08/18 02:20 Blood - Peripheral Anaerobic Blood Culture - Preliminary No growth in 1 day 02/08/18 02:05 Blood - Peripheral Aerobic Blood Culture - Preliminary No growth in 1 day 02/08/18 02:05 Blood - Peripheral Anaerobic Blood Culture - Preliminary No growth in 1 day Assessment and Plan - Assessment (1) Lumbar stenosis Code(s): M48.061 - Spinal stenosis, lumbar region without neurogenic claudication Status: Acute (2) Generalized weakness Code(s): R53.1 - Weakness Status: Acute - Plan 62-year-old male admitted secondary to acute urinary tract infection with generalized weakness and dehydration Continue physical therapy. No recurrence of confusion. Continue to monitor urine cultures. Transfer out of ICU. Metabolic encephalopathy History of alcohol abuse Delirium tremens Delirium tremens resolved Related to UTI Continue antibiotic treatments Monitor for resolution Folic acid Thiamine Acute urinary tract infection Rocephin Probiotics Follow culture Dehydration IV hydration Follow renal function Generalized weakness Tremors This is likely related to urinary tract infection Treat infection as above Physical therapy Occupational therapy Monitor for improvement Hyperlipidemia Continue present treatment Follow as an outpatient Hypertension Continue baseline treatment Follow blood pressures Adjust treatments as needed Depression Continue baseline treatments Xztbxul-Ehqpf-Pvnwr syndrome/deformity Physical therapy Supportive care DVT prophylaxis Chemical anticoagulation contraindicated due to thrombocytopenia SCDs contraindicated secondary to Cqmkkgf-Atvsa-Adlpt feet bilaterally
[2018-02-10] MEDS: Chlorhexidine Gluconate 2% 1 Pack (2 Cloths) TOPICAL SCH (05:15)
[2018-02-10] MEDS: Folic Acid 1 MG Tablet PO SCH (08:51)
[2018-02-10] MEDS: Lactobacillus Acidophilus/L. Spores Tablet PO SCH ×3 (08:51→17:58)
[2018-02-10] MEDS: Propranolol 40 MG Tablet PO SCH ×3 (08:51→17:58)
--- NOTE | 2018-02-10 15:04 | P.PNIM ---
Subjective Interval history: Not yet ambulating at baseline. Option for SNF discussed with the patient. No new complaints. Physical Exam Vital signs: Vital Signs 02/09/18 16:00 02/09/18 19:27 02/09/18 20:00 Temperature 99.2 F 98.4 F Pulse Rate 67 Respiratory Rate 20 Blood Pressure 156/72 H Pulse Oximetry 95 96 92 L 02/10/18 00:00 02/10/18 07:25 02/10/18 07:26 Temperature 98.2 F Pulse Rate 65 Respiratory Rate 20 Blood Pressure 142/82 H Pulse Oximetry 95 95 95 02/10/18 08:00 02/10/18 12:00 Temperature 97.4 F L 98.1 F Pulse Rate 71 68 Respiratory Rate 19 20 Blood Pressure 151/67 H 132/64 Pulse Oximetry 94 L 96 Intake & Output 02/09/18 02/10/18 02/10/18 18:59 06:59 18:59 Intake Total 820 / 820 120 / 120 580 / 580 Output Total 302 / 302 375 / 375 240 / 240 Balance 518 / 518 -255 / -255 340 / 340 Weight 85.1 kg Intake: IV 100 / 100 100 / 100 Rocephin Inj 1,000 MG In NS Inj 100 / 100 100 / 100 100 ML @ 200 mls/hr IV.SIG Q24H [facility] Rx#:[id number] Oral 720 / 720 120 / 120 480 / 480 Output: Urine 300 / 300 375 / 375 240 / 240 Stool 2 / 2 Other: # Voids 3 3 Date of Last Bowel Movement 02/09/18 # Bowel Movements 1 Narrative: GENERAL: NAD, A&Ox3, systemic tremor HEAD: Normocephalic. NECK: Supple, trachea midline. No lymphadenopathy. EYES: No scleral icterus. No injection or drainage. CARDIOVASCULAR: Regular rate and rhythm without murmurs, gallops, or rubs. RESPIRATORY: Breath sounds equal bilaterally. No accessory muscle use. GASTROINTESTINAL: Abdomen soft, non-tender, nondistended. MUSCULOSKELETAL: No cyanosis, or edema. Deformity of bilateral lower extremities and bilateral hands. SKIN: Warm and dry. NEURO: No focal neurological deficits. Results - Labs CBC & Chem 7: 02/08/18 07:35 02/08/18 07:35 Microbiology 02/08/18 02:20 Blood - Peripheral Aerobic Blood Culture - Preliminary No growth in 2 days 02/08/18 02:20 Blood - Peripheral Anaerobic Blood Culture - Preliminary No growth in 2 days 02/08/18 02:05 Blood - Peripheral Aerobic Blood Culture - Preliminary No growth in 2 days 02/08/18 02:05 Blood - Peripheral Anaerobic Blood Culture - Preliminary No growth in 2 days Assessment and Plan - Assessment (1) Lumbar stenosis Code(s): M48.061 - Spinal stenosis, lumbar region without neurogenic claudication Status: Acute (2) Generalized weakness Code(s): R53.1 - Weakness Status: Acute - Plan 62-year-old male admitted secondary to acute urinary tract infection with generalized weakness and dehydration Continue physical therapy. No recurrence of confusion. SNF vs. Home at discharge, likely discharge tomorrow. Metabolic encephalopathy History of alcohol abuse Delirium tremens Delirium tremens resolved Related to UTI Continue antibiotic treatments Monitor for resolution Folic acid Thiamine Acute urinary tract infection Rocephin Probiotics Follow culture Dehydration IV hydration Follow renal function Generalized weakness Tremors This is likely related to urinary tract infection Treat infection as above Physical therapy Occupational therapy Monitor for improvement Hyperlipidemia Continue present treatment Follow as an outpatient Hypertension Continue baseline treatment Follow blood pressures Adjust treatments as needed Depression Continue baseline treatments Otgyekj-Wnpis-Reuel syndrome/deformity Physical therapy Supportive care DVT prophylaxis Chemical anticoagulation contraindicated due to thrombocytopenia SCDs contraindicated secondary to Qztsmuu-Assmq-Cspaq feet bilaterally
[2018-02-11] MEDS: Chlorhexidine Gluconate 2% 1 Pack (2 Cloths) TOPICAL SCH (03:53)
[2018-02-11] MEDS: Lactobacillus Acidophilus/L. Spores Tablet PO SCH ×3 (08:51→17:49)
[2018-02-11] MEDS: Folic Acid 1 MG Tablet PO SCH (08:51)
[2018-02-11] MEDS: Propranolol 40 MG Tablet PO SCH ×3 (08:51→17:49)
--- NOTE | 2018-02-11 09:59 | P.DS ---
Date of admission: 02/08/18 10:53 Primary care physician: Tomas Thurman Brief History from admission: Mr. Baker is a 8-year-old male. 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 He says he has been getting physical therapy at baseline and just as of yesterday he was maintaining and ability to participate in exercises. He does describe some lower abdominal pain. He comes in the hospital secondary to weakness. This morning he was unable to get out of a seated position. He is also experiencing tremors upper body. Screening shows that he has a urinary tract infection. Etiology for his tremor and weakness is likely related to urinary tract infection. Dehydration appears evident. Patient admits that he was not drinking as much liquids today because he was worried he would have to get up and go the bathroom and not be able to. No other complaints at this time. DS: Diagnosis - Discharge Diagnosis (1) Lumbar stenosis Status: Acute (2) Generalized weakness Status: Acute DS: Medications - Discharge Medications Prescriptions: acidophilus-sporogenes [Acidophilus Ex Str (L. sporog)] 1 tab PO TID #30 tab cefuroxime axetil 500 mg PO Q12H #10 tab DS: Summary Hospital Course: Mr. Baker is a 62 year old male. He came in secondary to weakness. Weakness was found to be related to urinary tract infection. This is been treated. Patient is recovering from this. Patient also entered mild delirium tremens and metabolic encephalopathy and admits to excessive alcohol intake. No further DTs at this point. He does have persistent weakness. At this point is medically stable and cleared for discharge to residential facility with continuation of physical therapy prior to return to home. - Time Spent with Patient Total time spent providing and/or coordinating discharge services: Less than 30 minutes - Quality: VTE Deep Vein Thrombosis/Pulmonary Embolism Present on Admission: No Exam Vital signs: Vital Signs 02/10/18 12:00 02/10/18 16:00 02/10/18 19:45 Temperature 98.1 F 98.0 F Pulse Rate 68 66 Respiratory Rate 20 20 Blood Pressure 132/64 119/59 L Pulse Oximetry 96 95 93 L 02/10/18 20:00 02/10/18 20:09 02/11/18 00:03 Temperature 97.7 F 98.4 F Pulse Rate 71 71 Respiratory Rate 20 20 Blood Pressure 126/58 L 134/63 Pulse Oximetry 95 95 93 L 02/11/18 08:00 Temperature 98.0 F Pulse Rate Respiratory Rate 20 Blood Pressure 142/65 H Pulse Oximetry 95 Intake & Output 02/10/18 02/11/18 02/11/18 18:59 06:59 18:59 Intake Total 820 / 820 240 / 240 Output Total 391 / 391 400 / 400 Balance 429 / 429 -160 / -160 Weight 85.1 kg Intake: IV 100 / 100 Rocephin Inj 1,000 MG In NS Inj 100 / 100 100 ML @ 200 mls/hr IV.SIG Q24H [facility] Rx#:[id number] Oral 720 / 720 240 / 240 Output: Urine 390 / 390 400 / 400 Stool Other: Date of Last Bowel Movement 02/10/18 # Bowel Movements 1 Results Procedures completed during hospitalization: None Labs on day of discharge: Preliminary micro results at discharge 02/08/18 02:20 Aerobic Blood Culture - Preliminary Blood - Peripheral No growth in 2 days Anaerobic Blood Culture - Preliminary No growth in 2 days 02/08/18 02:05 Aerobic Blood Culture - Preliminary Blood - Peripheral No growth in 2 days Anaerobic Blood Culture - Preliminary No growth in 2 days - Impressions ITS Impressions Chest X-Ray 02/06/18 09:52 CONCLUSION: No acute cardiopulmonary findings. Discharge Plan - Discharge Disposition Patient Disposition: Discharge to SNF - Discharge Condition Condition: Stable - Discharge Order Discharge Orders: Discharge Order (Routine); Ordered 02/11/18 Ordered By: Willian Argueta - Discharge Details Anticipated Discharge Date: 02/11/18 - Physicians Team Attending Provider: Willian Argueta
--- NOTE | 2018-02-11 11:28 | P.PNIM ---
Subjective Interval history: Arrangements for discharge to [facility] facility are made, patient does not qualify for [facility] facility with his insurance. Discharge held. Patient is not yet appropriate for return to home. Physical Exam Vital signs: Vital Signs 02/10/18 12:00 02/10/18 16:00 02/10/18 19:45 Temperature 98.1 F 98.0 F Pulse Rate 68 66 Respiratory Rate 20 20 Blood Pressure 132/64 119/59 L Pulse Oximetry 96 95 93 L 02/10/18 20:00 02/10/18 20:09 02/11/18 00:03 Temperature 97.7 F 98.4 F Pulse Rate 71 71 Respiratory Rate 20 20 Blood Pressure 126/58 L 134/63 Pulse Oximetry 95 95 93 L 02/11/18 08:00 Temperature 98.0 F Pulse Rate Respiratory Rate 20 Blood Pressure 142/65 H Pulse Oximetry 95 Intake & Output 02/10/18 02/11/18 02/11/18 18:59 06:59 18:59 Intake Total 820 / 820 240 / 240 Output Total 391 / 391 400 / 400 Balance 429 / 429 -160 / -160 Weight 85.1 kg Intake: IV 100 / 100 Rocephin Inj 1,000 MG In NS Inj 100 / 100 100 ML @ 200 mls/hr IV.SIG Q24H [facility] Rx#:[id number] Oral 720 / 720 240 / 240 Output: Urine 390 / 390 400 / 400 Stool Other: Date of Last Bowel Movement 02/10/18 # Bowel Movements 1 Narrative: GENERAL: NAD, A&Ox3, systemic tremor HEAD: Normocephalic. NECK: Supple, trachea midline. No lymphadenopathy. EYES: No scleral icterus. No injection or drainage. CARDIOVASCULAR: Regular rate and rhythm without murmurs, gallops, or rubs. RESPIRATORY: Breath sounds equal bilaterally. No accessory muscle use. GASTROINTESTINAL: Abdomen soft, non-tender, nondistended. MUSCULOSKELETAL: No cyanosis, or edema. Deformity of bilateral lower extremities and bilateral hands. SKIN: Warm and dry. NEURO: No focal neurological deficits. Results - Labs CBC & Chem 7: 02/08/18 07:35 02/08/18 07:35 Microbiology 02/08/18 02:20 Blood - Peripheral Aerobic Blood Culture - Preliminary No growth in 3 days 02/08/18 02:20 Blood - Peripheral Anaerobic Blood Culture - Preliminary No growth in 3 days 02/08/18 02:05 Blood - Peripheral Aerobic Blood Culture - Preliminary No growth in 3 days 02/08/18 02:05 Blood - Peripheral Anaerobic Blood Culture - Preliminary No growth in 3 days - Procedures None Assessment and Plan - Assessment (1) Lumbar stenosis Code(s): M48.061 - Spinal stenosis, lumbar region without neurogenic claudication Status: Acute (2) Generalized weakness Code(s): R53.1 - Weakness Status: Acute - Plan 62-year-old male admitted secondary to acute urinary tract infection with generalized weakness and dehydration Continue physical therapy. No recurrence of confusion. Patient is safe for discharge to [facility] facility but if this is is not an option we will continue to work with PT until patient is safe for discharge to home. He has not yet safe for discharge home. Metabolic encephalopathy History of alcohol abuse Delirium tremens Delirium tremens resolved Related to UTI Continue antibiotic treatments Monitor for resolution Folic acid Thiamine Acute urinary tract infection Rocephin Probiotics Follow culture Dehydration IV hydration Follow renal function Generalized weakness Tremors This is likely related to urinary tract infection Treat infection as above Physical therapy Occupational therapy Monitor for improvement Hyperlipidemia Continue present treatment Follow as an outpatient Hypertension Continue baseline treatment Follow blood pressures Adjust treatments as needed Depression Continue baseline treatments Vubrgvn-Odube-Potta syndrome/deformity Physical therapy Supportive care DVT prophylaxis Chemical anticoagulation contraindicated due to thrombocytopenia SCDs contraindicated secondary to Uwsryyr-Sopct-Heqde feet bilaterally
--- NOTE | 2018-02-11 15:51 | P.PN ---
Subjective Interval history: NOT SEEN Physical Exam Vital signs: Vital Signs 02/10/18 16:00 02/10/18 19:45 02/10/18 20:00 Temperature 98.0 F Pulse Rate 66 Respiratory Rate 20 Blood Pressure 119/59 L Pulse Oximetry 95 93 L 95 02/10/18 20:09 02/11/18 00:03 02/11/18 08:00 Temperature 97.7 F 98.4 F 98.0 F Pulse Rate 71 71 Respiratory Rate 20 20 20 Blood Pressure 126/58 L 134/63 142/65 H Pulse Oximetry 95 93 L 95 02/11/18 12:00 Temperature 97.6 F Pulse Rate 73 Respiratory Rate 20 Blood Pressure 166/69 H Pulse Oximetry 95 Intake & Output 02/10/18 02/11/18 02/11/18 18:59 06:59 18:59 Intake Total 820 / 820 240 / 240 340 / 340 Output Total 391 / 391 400 / 400 150 / 150 Balance 429 / 429 -160 / -160 190 / 190 Weight 85.1 kg Intake: IV 100 / 100 100 / 100 Rocephin Inj 1,000 MG In NS Inj 100 / 100 100 / 100 100 ML @ 200 mls/hr IV.SIG Q24H [facility] Rx#:[id number] Oral 720 / 720 240 / 240 240 / 240 Output: Urine 390 / 390 400 / 400 150 / 150 Stool / Other: Date of Last Bowel Movement 02/10/18 # Bowel Movements 1 Narrative: GENERAL: NAD, A&Ox3, systemic tremor HEAD: Normocephalic. NECK: Supple, trachea midline. No lymphadenopathy. EYES: No scleral icterus. No injection or drainage. CARDIOVASCULAR: Regular rate and rhythm without murmurs, gallops, or rubs. RESPIRATORY: Breath sounds equal bilaterally. No accessory muscle use. GASTROINTESTINAL: Abdomen soft, non-tender, nondistended. MUSCULOSKELETAL: No cyanosis, or edema. Deformity of bilateral lower extremities and bilateral hands. SKIN: Warm and dry. NEURO: No focal neurological deficits. Results - Labs CBC & Chem 7: 02/08/18 07:35 02/08/18 07:35 Microbiology 02/08/18 02:20 Blood - Peripheral Aerobic Blood Culture - Preliminary No growth in 3 days 02/08/18 02:20 Blood - Peripheral Anaerobic Blood Culture - Preliminary No growth in 3 days 02/08/18 02:05 Blood - Peripheral Aerobic Blood Culture - Preliminary No growth in 3 days 02/08/18 02:05 Blood - Peripheral Anaerobic Blood Culture - Preliminary No growth in 3 days - Imaging ITS Impressions Chest X-Ray 02/06/18 09:52 CONCLUSION: No acute cardiopulmonary findings. - Procedures None Assessment and Plan - Assessment (1) Lumbar stenosis Code(s): M48.061 - Spinal stenosis, lumbar region without neurogenic claudication Status: Acute (2) Generalized weakness Code(s): R53.1 - Weakness Status: Acute - Plan 62-year-old male admitted secondary to acute urinary tract infection with generalized weakness and dehydration Continue physical therapy. No recurrence of confusion. Patient is safe for discharge to [facility] but if this is is not an option we will continue to work with PT until patient is safe for discharge to home. He is not yet safe for discharge home. Metabolic encephalopathy History of alcohol abuse Delirium tremens Delirium tremens resolved Related to UTI Continue antibiotic treatments Monitor for resolution Folic acid Thiamine Acute urinary tract infection Rocephin Probiotics Follow culture Dehydration IV hydration Follow renal function Generalized weakness Tremors This is likely related to urinary tract infection Treat infection as above Physical therapy Occupational therapy Monitor for improvement Hyperlipidemia Continue present treatment Follow as an outpatient Hypertension Continue baseline treatment Follow blood pressures Adjust treatments as needed Depression Continue baseline treatments Jqevwbl-Ribuk-Ilpqm syndrome/deformity Physical therapy Supportive care DVT prophylaxis Chemical anticoagulation contraindicated due to thrombocytopenia SCDs contraindicated secondary to Ylklcuj-Dbkoc-Ppnnm feet bilaterally
[2018-02-11 20:45] VITALS: O2SAT 93
[2018-02-12] MEDS: Chlorhexidine Gluconate 2% 1 Pack (2 Cloths) TOPICAL SCH (04:34)
[2018-02-12 06:52] LABS: Baso # (Auto) 0.1 th/mm3 (0.0-0.2); Baso % (Auto) 1.7 % (0.0-2.0); Eos # (Auto) 0.2 th/mm3 (0.0-0.4); Eos % (Auto) 2.8 % (0.0-4.0); Hematocrit 41.3 % (39.0-51.0); Hemoglobin 14.4 gm/dL (13.0-17.0); Lymph # (Auto) 1.4 th/mm3 (1.0-4.8); Mean Corpuscular HGB Conc 34.8 % (32.0-36.0); Mean Corpuscular Volume 94.7 fL (80.0-100.0); Mean Platelet Volume 7.8 fL (7.0-11.0); Mono # (Auto) 1.1 th/mm3 (0.0-0.9); Mono % (Auto) 16.4 % (0.0-8.0); Neut # (Auto) 3.7 th/mm3 (1.8-7.7); Neut % (Auto) 58.1 % (16.0-70.0); Platelet Count 130 th/mm3 (150-450); Red Blood Count 4.36 mil/mm3 (4.50-5.90); Red Cell Distribution Width 11.9 % (11.6-17.2); White Blood Count 6.5 th/mm3 (4.0-11.0)
[2018-02-12 08:34] VITALS: BP 146/77; RESP 22
[2018-02-12] MEDS ORDERED: Ibuprofen 400 MG Tablet PO PRN (08:59)
[2018-02-12] MEDS ORDERED: Naloxone Inj 0.4 MG/ML Vial IV.PUSH PRN (08:59)
[2018-02-12] MEDS ORDERED: Lisinopril 10 MG Tablet PO SCH (09:15)
--- NOTE | 2018-02-12 09:28 | P.PN ---
Subjective Interval history: Follow-up metabolic encephalopathy and abnormal urinalysis. He is alert and oriented. No UTI symptoms. Complains of left inguinal pain with activity since he had physical therapy yesterday. Seen with mother who states patient cannot go home with her Physical Exam Vital signs: Vital Signs 02/11/18 12:00 02/11/18 16:00 02/11/18 20:00 Temperature 97.6 F 99.1 F 98.0 F Pulse Rate 73 77 76 Respiratory Rate 20 19 18 Blood Pressure 166/69 H 136/77 125/59 L Pulse Oximetry 95 96 93 L 02/12/18 04:00 02/12/18 08:00 Temperature 98.1 F 98.6 F Pulse Rate 75 92 H Respiratory Rate 18 22 Blood Pressure 148/65 H 146/77 H Pulse Oximetry 93 L 93 L Intake & Output 02/11/18 02/12/18 02/12/18 18:59 06:59 18:59 Intake Total 940 / 940 240 / 240 Output Total 300 / 300 Balance 640 / 640 240 / 240 Weight 85.4 kg Intake: IV 100 / 100 Rocephin Inj 1,000 MG In NS Inj 100 / 100 100 ML @ 200 mls/hr IV.SIG Q24H LUIS Rx#:[id number] Oral 840 / 840 240 / 240 Output: Urine 300 / 300 Other: # Voids 2 Narrative: GENERAL: NAD, A&Ox3, CARDIOVASCULAR: Regular rate and rhythm without murmurs, gallops, or rubs. RESPIRATORY: Breath sounds equal bilaterally. No accessory muscle use. GASTROINTESTINAL: Abdomen soft, non-tender, nondistended. MUSCULOSKELETAL: No cyanosis, or edema. Deformity of bilateral lower extremities and bilateral hands. No inguinal swelling, redness and tenderness. Slight discomfort left inguinal with abduction and abduction. SKIN: Warm and dry. NEURO: No focal neurological deficits. Results - Labs CBC & Chem 7: 02/12/18 05:20 02/08/18 07:35 Laboratory Results - last 24 hr 02/12/18 05:20 CBC w Diff Auto diff final WBC 6.5 RBC 4.36 L Hgb 14.4 Hct 41.3 MCV 94.7 MCH 33.0 MCHC 34.8 RDW 11.9 Plt Count 130 L D MPV 7.8 Neut % (Auto) 58.1 Lymph % (Auto) 21.0 [place] % (Auto) 16.4 H Eos % (Auto) 2.8 Baso % (Auto) 1.7 Neut # (Auto) 3.7 Lymph # (Auto) 1.4 [place] # (Auto) 1.1 H Eos # (Auto) 0.2 Baso # (Auto) 0.1 WBC Differential . Differential Comment . Microbiology 02/08/18 02:20 Blood - Peripheral Aerobic Blood Culture - Preliminary No growth in 3 days 02/08/18 02:20 Blood - Peripheral Anaerobic Blood Culture - Preliminary No growth in 3 days 02/08/18 02:05 Blood - Peripheral Aerobic Blood Culture - Preliminary No growth in 3 days 02/08/18 02:05 Blood - Peripheral Anaerobic Blood Culture - Preliminary No growth in 3 days - Imaging ITS Impressions Chest X-Ray 02/06/18 09:52 CONCLUSION: No acute cardiopulmonary findings. - Procedures None Assessment and Plan - Assessment (1) Lumbar stenosis Code(s): M48.061 - Spinal stenosis, lumbar region without neurogenic claudication Status: Acute (2) Generalized weakness Code(s): R53.1 - Weakness Status: Acute - Plan 62-year-old male admitted secondary to acute urinary tract infection with generalized weakness and dehydration Metabolic encephalopathy History of alcohol abuse Delirium tremens Delirium tremens resolved Folic acid Thiamine Abnormal urinalysis. Urine culture with contaminants Discontinue Rocephin Probiotics Dehydration. Resolved Discontinue IV hydration Follow renal function Generalized weakness Tremors Improving physical therapy Occupational therapy Monitor for improvement Hyperlipidemia Continue present treatment Follow as an outpatient Hypertension Continue baseline treatment Follow blood pressures Adjust treatments as needed Depression Continue baseline treatments Ltoucec-[id number]-Xqvsv syndrome/deformity Physical therapy Supportive care Left inguinal strain. Symptomatic treatment DVT prophylaxis Chemical anticoagulation contraindicated due to thrombocytopenia which is improving. Likely secondary to alcohol. Monitor SCDs contraindicated secondary to Mcubayq-[id number]-Fiprq feet bilaterally Discharge Planning: Not a safe discharge to home awaiting approval for snf. Eforcse queried. Will prescribe Xanax for 3 days
[2018-02-12] MEDS: Lactobacillus Acidophilus/L. Spores Tablet PO SCH ×2 (10:42→14:17)
[2018-02-12] MEDS: Propranolol 40 MG Tablet PO SCH ×2 (10:42→14:18)
[2018-02-12] MEDS: Folic Acid 1 MG Tablet PO SCH (10:42)
[2018-02-12 12:45] VITALS: PULSE 91; TEMP 100.3
== END 2018-02-12 15:19 ==
LOC: PHED 09:32 → PHEDA 09:32 → INTOOBSV 12:28 → OBSVTOIN 12:28 → PH3 13:47 → PHICU 02-08 00:11 → PH3 02-09 17:39
PROVIDERS: ADMIT Internal Medicine; ATTEND Internal Medicine